=== PATIENT | female | born 1955 | race African-American/Black ===

== ENCOUNTER → 2016-02-22 | Outpatient (CLI) | payer MEDICAID | LOC: RAD 11:46 | PROVIDERS: ATTEND Internal Medicine Medical Oncology | DX: M25.551 Pain in right hip (principal) ==

== ENCOUNTER → 2016-06-05 | Outpatient (CLI) | payer MEDICAID ==
--- NOTE | 2016-06-05 16:12 | XCELERA REPORT ---
[address] [address] Lower Extremity Venous Evaluation Name: JAI MCKINLEY Age: 61 yrs Gender: Female : 1955 Patient Status: Outpatient Patient Location: Study Date: 06/05/2016 01:05 PM Procedure: Color flow and duplex imaging of the veins of the left lower extremity as well as the right Common Femoral vein. Reason For Study: LEFT CALF PAIN M79.662 Ordering Physician: SHYAM DELUNA Performed By: Hammad Liao Right Sided Venous Evaluation 5.7 x 4.6 cms nn vascular mass, complex in groin. Normal vessel filling wall to wall, compression and augmentation as well as Colour flow down to the infrageniculate veins. Critical Findings Discussed with Ivone at Dr Deluna's office. Interpretation Summary No duplex evidence of DVT or obstruction in the left lower extremity nor in the right Common Femoral vein. Large complex mass in left groin, similar to finding in 2011. : SHYAM DELUNA > Derek Hollins
== END ==
LOC: SP 12:57
PROVIDERS: ATTEND Internal Medicine Medical Oncology
DX: M79.662 Pain in left lower leg (principal)
CPT/HCPCS: 93971

== ENCOUNTER 2016-07-09 20:09 | Emergency (ER) | payer OTHER, MEDICAID ==
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
[2016-07-09] MEDS ORDERED: ACETAMINOPHEN 325 MG TABLET PO ONE (22:42)
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
[2016-07-10 00:23] VITALS: BP 183/98
== END 2016-07-10 00:28 | disposition home or self-care (01) ==
LOC: ER 20:09
DX: R51 Headache (principal); F07.81 Postconcussional syndrome; M46.82 Other specified inflammatory spondylopathies, cervical region; S46.912A Strain of unspecified muscle, fascia and tendon at shoulder and upper arm level, left arm, initial encounter; S46.911A Strain of unspecified muscle, fascia and tendon at shoulder and upper arm level, right arm, initial encounter; R11.0 Nausea; M54.89 Other dorsalgia; V89.2XXA Person injured in unspecified motor-vehicle accident, traffic, initial encounter; I10 Essential (primary) hypertension; Z90.710 Acquired absence of both cervix and uterus; Z96.642 Presence of left artificial hip joint
CPT/HCPCS: 70450; 72125; 99284

== ENCOUNTER → 2017-01-23 | Outpatient (CLI) | payer MEDICAID ==
--- NOTE | 2017-01-24 14:19 | WOMENS IMAGING REPORT ---
EXAM DESCRIPTION: BILAT SCREENING MAMMO W/CAD COMPLETED DATE/TIME: 01/24/2017 8:29 am REASON FOR STUDY: SCREENING MAMMO Z12.31 ENCNTR SCREEN MAMMOGRAM FOR MALIGNANT NEOPLASM OF RIDDHI COMPARISON: 2011 to 2015 TECHNIQUE: Standard craniocaudal and mediolateral oblique views of each breast recorded using digita l acquisition. LIMITATIONS: None. FINDINGS: No masses, calcifications or architectural distortion. No areas of suspicion. Read with the assistance of CAD. .[facility] - R2 Cenova Version 1.3 .[facility] Imaging - R2 Cen[employer] Version 1.3 .[facility] - R2 Cenova Version 2.4 .[facility] [place] - R2 Cenova Version 2.4 .[facility] - R2 Tenn[employer] Player Version 9.2 IMPRESSION: NORMAL MAMMOGRAM. BIRADS 1. BREAST DENSITY: c. The breasts are heterogeneously dense, which may obscure small masses. BIRAD: 1 NEGATIVE RECOMMENDATION: ROUTINE SCREENING COMMENT: The patient has been notified of the results by letter per SA requirements. Additional no tification policies are in place for contacting patient with suspicious or incomplete findings. Quality ID #225: The [employer] recommends an annual screening mammogram for women aged 40 years or over. This facility utilizes a reminder system to ensure that all patients receive reminder letters, and/or direct phone calls for appointments. This includes reminders for routine scr eening mammograms, diagnostic mammograms, or other Breast Imaging Interventions when appropriate. Th is patient will be placed in the appropriate reminder system. The [employer] (ACR) has developed recommendations for screening MRI of the breast s in certain patient populations, to be used in conjunction with mammography. Breast MRI surveillanc e may be appropriate for women with more than 20% lifetime risk of developing breast cancer as deter mined by genetic testing, significant family history of the disease, or history of mantle radiation f or Hodgkins Disease. ACR Practice Guidelines 2008. TECHNICAL DOCUMENTATION: FINDING NUMBER: (1) ASSESSMENT: (1) JOB ID: [id number] [employer]- All Rights Reserved
== END ==
LOC: WI 14:56
PROVIDERS: ATTEND Internal Medicine
DX: Z12.31 Encounter for screening mammogram for malignant neoplasm of breast (principal)
CPT/HCPCS: 77067; G0202

== ENCOUNTER 2018-01-07 16:34 | Inpatient (IN) | payer MEDICAID ==
[2018-01-07 17:56] LABS: APPEARANCE,URINE CLEAR; BILIRUBIN,URINE NEGATIVE (NEGATIVE); COLOR,URINE STRAW; GLUCOSE, URINE NEGATIVE (NEGATIVE); KETONES,URINE NEGATIVE (NEGATIVE); LEUKOCYTE ESTERASE,URINE NEGATIVE (NEGATIVE); NITRITE,URINE NEGATIVE (NEGATIVE); PROTEIN,URINE 30 mg/dL (NEGATIVE); URINE SPECIFIC GRAVITY 1.006; UROBILINOGEN,URINE NEGATIVE mg/dL (<2.0)
[2018-01-07 17:59] LABS: ALANINE AMINOTRANSFERASE 15 U/L (9-52); ALBUMIN 4.4 g/dL (3.5-5.0); ALKALINE PHOSPHATASE 91 U/L (38-126); ANION GAP 12 (5-19); ASPARTATE AMINO TRANSFERASE 18 U/L (14-36); BILIRUBIN,DIRECT 0.4 mg/dL (0.0-0.4); BILIRUBIN,TOTAL 1.1 mg/dL (0.2-1.3); BLOOD UREA NITROGEN 11 mg/dL (7-20); CALCIUM 9.8 mg/dL (8.4-10.2); CARBON DIOXIDE 30 mmol/L (22-30); CHLORIDE 104 mmol/L (98-107); GLUCOSE 96 mg/dL (75-110); POTASSIUM 4.6 mmol/L (3.6-5.0); SODIUM 145.6 mmol/L (137-145); TOTAL PROTEIN 7.6 g/dL (6.3-8.2)
--- NOTE | 2018-01-07 17:59 | RADIOLOGY REPORT (SQ) ---
EXAM DESCRIPTION: CT HEAD WITHOUT COMPLETED DATE/TIME: 01/07/2018 5:43 pm REASON FOR STUDY: headache, delayed speech COMPARISON: 07/09/2016 TECHNIQUE: Axial images acquired through the brain without intravenous contrast. Images reviewed wi th bone, brain and subdural windows. Additional sagittal and coronal reconstructions were generated. Images stored on PACS. All CT scanners at this facility use dose modulation, iterative reconstruction, and/or weight based d osing when appropriate to reduce radiation dose to as low as reasonably achievable (ALARA). [facility]: Dose Right [facility]: CareDose [facility]: Dose Right [facility]: Teradose 4D [facility]: [employer] RADIATION DOSE: CT Rad equipment meets quality standard of care and radiation dose reduction techniq ues were employed. CTDIvol: 53.2 mGy. DLP: 1044 mGy-cm. mGy. LIMITATIONS: None. FINDINGS: VENTRICLES: Normal size and contour. CEREBRUM: No masses. No hemorrhage. No midline shift. No evidence for acute infarction. Few scatte red areas of low density in the white matter most likely chronic small vessel ischemic changes. CEREBELLUM: No masses. No hemorrhage. No alteration of density. No evidence for acute infarction. EXTRAAXIAL SPACES: No fluid collections. No masses. ORBITS AND GLOBE: No intra- or extraconal masses. Normal contour of globe without masses. CALVARIUM: No fracture. PARANASAL SINUSES: No fluid or mucosal thickening. SOFT TISSUES: No mass or hematoma. OTHER: No other significant finding. IMPRESSION: MILD CHRONIC MICROVASCULAR ISCHEMIA. NO ACUTE IMAGING FINDINGS IN THE BRAIN. EVIDENCE OF ACUTE STROKE: NO. COMMENT: Quality ID # 436: Final reports with documentation of one or more dose reduction techniques (e.g., Automated exposure control, adjustment of the mA and/or kV according to patient size, use of iterative reconstruction technique) TECHNICAL DOCUMENTATION: JOB ID: [id number] [employer]- All Rights Reserved Reading location - IP/workstation name: [email or web address]
[2018-01-07 18:06] LABS: ABSOLUTE BASOPHILS # (AUTO) 0.1 10^3/uL (0.0-0.2); ABSOLUTE EOSINOPHILS # (AUTO) 0.2 10^3/uL (0.0-0.6); ABSOLUTE LYMPHOCYTES (AUTO) 3.7 10^3/uL (0.5-4.7); ABSOLUTE MONOCYTES (AUTO) 1.2 10^3/uL (0.1-1.4); ABSOLUTE NEUT (AUTO) 9.1 10^3/uL (1.7-8.2); BASOPHILS % (AUTO) 0.8 % (0-2); EOSINOPHILS % (AUTO) 1.3 % (0-6); HEMATOCRIT 36.2 % (36.0-47.0); HEMOGLOBIN 12.1 g/dL (12.0-15.5); LYMPHOCYTES % (AUTO) 26.1 % (13-45); MEAN CORPUSCULAR HEMOGLOBIN 25.6 pg (27.0-33.4); MEAN CORPUSCULAR HGB CONC 33.6 g/dL (32.0-36.0); MEAN CORPUSCULAR VOLUME 76 fl (80-97); MONOCYTES % (AUTO) 8.5 % (3-13); PLATELET COUNT 482 10^3/uL (150-450); RED BLOOD COUNT 4.74 10^6/uL (3.72-5.28); RED CELL DISTRIBUTION WIDTH 19.3 % (11.5-14.0); SEGMENTED NEUTROPHILS % (AUTO) 63.3 % (42-78); TOTAL CELLS COUNTED % (AUTO) 100 %; WHITE BLOOD COUNT 14.3 10^3/uL (4.0-10.5)
[2018-01-07 18:26] LABS: ANISOCYTOSIS 2+; OVALOCYTES SLIGHT; PLATELET COMMENT INCREASED; POIKILOCYTOSIS 1+; POLYCHROMASIA SLIGHT; SCHISTOCYTES SLIGHT; TARGET CELLS 1+; TEAR DROP CELLS SLIGHT
[2018-01-07 18:44] LABS: PLATELET LARGE PRESENT
--- NOTE | 2018-01-07 19:04 | EKG REPORT ---
SEVERITY:- ABNORMAL ECG - SINUS RHYTHM LEFT VENTRICULAR HYPERTROPHY CONSIDER ANTERIOR INFARCT BORDERLINE T ABNORMALITIES, INFERIOR LEADS : Confirmed by: Jorge Thomas MD 07-Jan-2018 19:03:44
--- NOTE | 2018-01-07 19:17 | ER Document Report ---
ED General - General Chief Complaint: Headache Stated Complaint: POSSIBLE SEIZURE Time Seen by Provider: 01/07/18 18:03 Mode of Arrival: Ambulatory Information source: Patient TRAVEL OUTSIDE OF THE [place] IN LAST 30 DAYS: No - HPI Patient complains to provider of: dysarthria Onset: Other - Is a 62-year-old female with a history of sickle cell disease as well as hypertension and diabetes who has been off of medications for the last 5 days, presented for 3 days of difficulty with word finding and headache. Today the symptoms have persisted which prompted her to seek care. She notes that she decided not to take her blood pressure medications because she had run out on Friday then her symptoms started on Friday. She had been in her usual state of health until then. She never had problems like this in the past, never any heart attacks in the past. Never had any strokes that she knows of. Denies any focal numbness or weakness. - Related Data Allergies/Adverse Reactions: meperidine HCl [From Demerol] Allergy (Intermediate, Verified 01/07/18 16:50) facial swelling, throat swelling iodine [Iodine] Allergy (Verified 01/07/18 16:50) RASH Past Medical History - General Information source: Patient, Relative - Social History Smoking Status: Never Smoker Frequency of alcohol use: None Drug Abuse: None Family History: Reviewed & Not Pertinent Patient has suicidal ideation: No Patient has homicidal ideation: No - Past Medical History Cardiac Medical History: Reports: Hx Hypertension Denies: Hx Heart Attack Pulmonary Medical History: Denies: Hx Asthma Neurological Medical History: Denies: Hx Cerebrovascular Accident, Hx Seizures Renal/ Medical History: Denies: Hx Peritoneal Dialysis GI Medical History: Reports: Hx Gastroesophageal Reflux Disease. Denies: Hx Hepatitis, Hx Hiatal Hernia, Hx Ulcer Infectious Medical History: Denies: Hx Hepatitis Past Surgical History: Reports: Hx Appendectomy, Hx Cholecystectomy, Hx Hysterectomy, Hx Orthopedic Surgery - left hip replacement. Denies: Hx Mastectomy, Hx Open Heart Surgery, Hx Pacemaker - Immunizations Hx Diphtheria, Pertussis, Tetanus Vaccination: No Hx Pneumococcal Vaccination: 02/10/07 Review of Systems - Review of Systems -: Yes All other systems reviewed and negative Physical Exam - Vital signs Vitals: Resp BP Pulse Ox 12 206/106 H 96 01/07/18 16:45 01/07/18 16:45 01/07/18 16:45 - General General appearance: Appears well In distress: Mild - HEENT Head: Normocephalic Eyes: Normal Conjunctiva: Normal Pupils: PERRL - Respiratory Respiratory status: No respiratory distress Chest status: Nontender Breath sounds: Normal Chest palpation: Normal - Cardiovascular Rhythm: Regular Heart sounds: Normal auscultation Murmur: No - Abdominal Inspection: Normal Distension: No distension Bowel sounds: Normal Tenderness: Nontender Organomegaly: No organomegaly - Back Back: Normal, Nontender - Extremities General upper extremity: Normal inspection, Nontender, Normal color, Normal ROM , Normal temperature General lower extremity: Normal inspection, Nontender, Normal color, Normal ROM , Normal temperature, Normal weight bearing. No: Celina's sign - Neurological Neuro grossly intact: Yes Cognition: Normal Orientation: AAOx4 [place] Coma Scale Eye Opening: Spontaneous [place] Coma Scale Verbal: Oriented Amy Coma Scale Motor: Obeys Commands [place] Coma Scale Total: 15 Speech: Dysarthria, Expressive aphasia Cranial nerves: Normal Cerebellar coordination: Normal Motor strength normal: LUE, RUE, LLE, RLE Additional motor exam normals: Equal well puller - Psychological Associated symptoms: Normal affect Course - Re-evaluation Re-evalutation: 01/07/18 21:14 This 62-year-old female presented for evaluation of difficulty with word finding as well as slurring of her words. She had been untreated for several days for hypertension and sickle cell. She has multiple risk factors for CVA, she has had 3 days of symptoms however so is likely a poor candidate for lytic therapy will defer administration of lytics to further workup at this time will obtain CT troponin EKG broad labs. She was given 0.2 mcg of clonidine prior to arrival and her blood pressure is subsequently decreased substantially from the 220 range to the 140 systolic. Her NIH stroke scale is a 1, she has slight difficulty with word finding and complex repetitive speech. Her other symptoms are normal, she has great motor strength in all extremities. Is able to reproduce complex movements. We will plan for an MRI of the brain, will continue to monitor in emergency department. Believe she likely has suffered an ischemic stroke will defer further demonstration of other medications. Spoke to Dr. Larson who is this patient's primary physician he agrees to admit this patient for ongoing monitoring in the IMCU. MRI does confirm that she has had a an acute infarct in the left MCA territory. - Vital Signs Vital signs: Temp Pulse Resp BP Pulse Ox 98.6 F 49 L 11 L 129/80 H 97 01/07/18 16:46 01/07/18 18:30 01/07/18 19:21 01/07/18 19:21 01/07/18 19:21 - Laboratory Result Diagrams: 01/07/18 16:40 01/07/18 16:40 Laboratory results interpreted by me: 01/07/18 01/07/18 01/07/18 16:40 16:40 16:40 WBC 14.3 H MCV 76 L MCH 25.6 L RDW 19.3 H Plt Count 482 H Absolute Neutrophils 9.1 H Sodium 145.6 H Urine Protein 30 H Discharge - Discharge Clinical Impression: Sickle cell trait CVA (cerebral vascular accident) Qualifiers: CVA mechanism: unspecified Qualified Code(s): I63.9 - Cerebral infarction, unspecified Hypertension Qualifiers: Hypertension type: unspecified Qualified Code(s): I10 - Essential (primary) hypertension Condition: Stable Disposition: ADMITTED INPATIENT [facility] Ad[facility]: [facility]
--- NOTE | 2018-01-07 20:54 | RADIOLOGY REPORT (SQ) ---
EXAM DESCRIPTION: MRI HEAD WITHOUT COMPLETED DATE/TIME: 01/07/2018 8:36 pm REASON FOR STUDY: stroke COMPARISON: 05/26/2008 TECHNIQUE: Multiplanar imaging includes non-contrasted T1, T2, FLAIR, and diffusion with ADC map seq uences. Images stored on PACS. LIMITATIONS: None. FINDINGS: ANATOMY: No anomalies. Normal vascular flow voids. Pituitary fossa normal. CSF SPACES: Normal in size and contour. No hemorrhage. CEREBRUM: Sulci and gyri normal in size and contour. There is increased FLAIR and T2 signal in the p eriventricular white matter. No hemorrhage. No mass. POSTERIOR FOSSA: No signal alteration. No hemorrhage. No edema, masses or mass effect. Internal sho tory canals, cerebello-pontine angles, mastoids normal. DIFFUSION IMAGING: Abnormal diffusion is seen in the left posterior parietal cortex. ORBITS: No masses. Globes normal. PARANASAL SINUSES: No fluid levels. Mucosa normal. OTHER: No other significant finding. IMPRESSION: There is the appearance of acute infarction involving the left posterior parietal lobe. EVIDENCE OF ACUTE STROKE: Yes LEFT MCA TECHNICAL DOCUMENTATION: JOB ID: [id number]- All Rights Reserved Reading location - IP/workstation name: [email or web address]
[2018-01-07] MEDS: ENOXAPARIN SODIUM INJ 40 MG/0.4 ML DISP.SYRIN SUBCUT SCH (22:04)
[2018-01-07] MEDS: FOLIC ACID 1 MG TABLET PO SCH (23:06)
[2018-01-07] MEDS: ENALAPRIL MALEATE 5 MG TABLET PO SCH (23:06)
[2018-01-07] MEDS: METOPROLOL SUCCINATE 50 MG TAB.SR.24H PO SCH (23:07)
[2018-01-07] MEDS: ASPIRIN/DIPYRIDAMOLE 25-200 MG 1 CAP.SR CPMP.12HR PO SCH (23:07)
[2018-01-08 01:12] LABS: CREATINE KINASE MB 0.39 ng/mL (<4.55)
[2018-01-08 01:19] LABS: TROPONIN I < 0.012 ng/mL
[2018-01-08] MEDS: LANSOPRAZOLE 15 MG TAB.RAP.DR PO SCH (06:28)
[2018-01-08 07:07] LABS: CHOLESTEROL 166.37 mg/dL (0-200); TRIGLYCERIDES 114 mg/dL (<150)
[2018-01-08 07:17] LABS: DIRECT LDL 112 mg/dL (<100)
[2018-01-08 07:21] LABS: CREATINE KINASE MB 0.31 ng/mL (<4.55)
[2018-01-08 07:24] LABS: CREATINE KINASE < 20 U/L (30-135)
[2018-01-08 07:26] LABS: TROPONIN I < 0.012 ng/mL
--- NOTE | 2018-01-08 07:44 | EKG REPORT ---
SEVERITY:- ABNORMAL ECG - SINUS BRADYCARDIA BORDERLINE LEFT AXIS DEVIATION ABNORMAL T, CONSIDER ISCHEMIA, INFERIOR LEADS : Confirmed by: Jorge Thomas MD 08-Jan-2018 07:43:33
[2018-01-08] MEDS ORDERED: ATORVASTATIN CALCIUM 80 MG TABLET PO ONE (09:30)
[2018-01-08] MEDS: ASPIRIN/DIPYRIDAMOLE 25-200 MG 1 CAP.SR CPMP.12HR PO SCH ×2 (09:42→21:46)
[2018-01-08] MEDS: FOLIC ACID 1 MG TABLET PO SCH (09:44)
[2018-01-08] MEDS: ENOXAPARIN SODIUM INJ 40 MG/0.4 ML DISP.SYRIN SUBCUT SCH (09:50)
[2018-01-08] MEDS: METOPROLOL SUCCINATE 50 MG TAB.SR.24H PO SCH ×2 (09:52→22:30)
[2018-01-08] MEDS: ENALAPRIL MALEATE 5 MG TABLET PO SCH ×2 (09:52→22:30)
--- NOTE | 2018-01-08 12:18 | RADIOLOGY REPORT (SQ) ---
EXAM DESCRIPTION: CAROTID DOPPLER COMPLETED DATE/TIME: 01/08/2018 11:58 am REASON FOR STUDY: CVA COMPARISON: None. TECHNIQUE: Grayscale ultrasound, Doppler velocity and spectra, and color Doppler images acquired of the extra-cranial carotid and vertebral arteries. Images stored on PACS. LIMITATIONS: None. FINDINGS: RIGHT CAROTID CCA Velocities: Within normal limits. ICA Velocities Peak systolic 1.09 m/s. End diastolic 0.33 m/s. Proximal ICA/CCA peak systolic ratio 1.2. Spectra normal. No significant plaque. LEFT CAROTID CCA Velocities: Within normal limits. ICA Velocities Peak systolic 0.89 m/s. End diastolic 0.28 m/s. Proximal ICA/CCA peak systolic ratio 1.1. Spectra normal. No significant plaque. VERTEBRAL ARTERIES: Antegrade flow. Normal waveforms. SUBCLAVIAN ARTERIES: No finding. OTHER: No other significant finding. IMPRESSION: NO HEMODYNAMICALLY SIGNIFICANT STENOSIS. COMMENT: Quality ID #[id number]: Velocity criteria are extrapolated from the diameter data as defined by t he Society of Radiologists in Ultrasound Consensus Conference. Radiology 2003: 229; 340-346. TECHNICAL DOCUMENTATION: JOB ID: [id number] [employer]- All Rights Reserved Reading location - IP/workstation name: [email or web address]
[2018-01-08 13:22] LABS: CREATINE KINASE MB < 0.22 ng/mL (<4.55); TROPONIN I < 0.012 ng/mL
--- NOTE | 2018-01-08 21:02 | PDOC H&P ---
History of Present Illness Admission Date/PCP: 01/07/18 19:53 ZULY MORALEZ MD History of Present Illness: JAI MCKINLEY is a 62 year old female,she has a history of sickle cell disease, hypertension, type 2 diabetes mellitus, she came to emergency room for evaluation of a 3-day history of dysphagia, in the emergency room CT head was done, it was negative for any acute pathology. Patient was obviously dysphasic does suspect a stroke. MRI head was done without contrast, it demonstrated abnormal diffusion on the diffusion imaging in the left posterior parietal cortex. This is consistent with left MCA territory stroke Past Medical History Cardiac Medical History: Reports: Hypertension Neurological Medical History: Denies: Seizures Endocrine Medical History: Reports: Diabetes Mellitus Type 2 GI Medical History: Reports: Gastroesophageal Reflux Disease Hematology: Reports: Anemia, Sickle Cell Disease Past Surgical History Past Surgical History: Reports: Appendectomy, Cholecystectomy, Hysterectomy, Orthopedic Surgery - left hip replacement Social History Smoking Status: Former Smoker Last Time Smoked: 2007 Frequency of Alcohol Use: None Hx Recreational Drug Use: No Drugs: None Hx Prescription Drug Abuse: No Family History Family History: Reviewed & Not Pertinent Parental Family History Reviewed: Yes Children Family History Reviewed: Yes Sibling(s) Family History Reviewed.: Yes Medication/Allergy Home Medications: Celecoxib [Celebrex 200 mg Capsule] 200 mg PO DAILY 11/10/11 Folic Acid 1 mg PO DAILY 11/10/11 Oxycodone HCl/Acetaminophen [Percocet 10-325 mg Tablet] 1 each PO Q4HP PRN 11/09 Metoprolol Succinate [Toprol Xl] 50 mg PO Q12 09/21/14 Vitamin D 3 1,000 tab PO DAILY 09/21/14 Ascorbic Acid [Vitamin C 500 mg Tablet] 500 mg PO DAILY 01/07/18 Enalapril Maleate [Vasotec] 5 mg PO Q12 01/07/18 Fentanyl [Duragesic 75 Mcg/Hr Transdermal Patch] 1 patch TOP Q3D 01/07/18 Omeprazole 20 mg PO DAILY 01/07/18 Allergies/Adverse Reactions: meperidine HCl [From Demerol] Allergy (Intermediate, Verified 01/07/18 16:50) facial swelling, throat swelling iodine [Iodine] Allergy (Verified 01/07/18 16:50) RASH Review of Systems Constitutional: ABSENT: chills, fever(s), headache(s), weight gain, weight loss Eyes: ABSENT: visual disturbances Ears: ABSENT: hearing changes Cardiovascular: ABSENT: chest pain, dyspnea on exertion, edema, orthropnea, palpitations Respiratory: ABSENT: cough, hemoptysis Gastrointestinal: ABSENT: abdominal pain, constipation, diarrhea, hematemesis, hematochezia, nausea, vomiting Genitourinary: ABSENT: dysuria, hematuria Musculoskeletal: ABSENT: joint swelling Integumentary: ABSENT: rash, wounds Neurological: PRESENT: other - abnormal speech Psychiatric: ABSENT: anxiety, depression, homidical ideation, suicidal ideation Endocrine: ABSENT: cold intolerance, heat intolerance, menstrual abnormalities, polydipsia, polyuria Hematologic/Lymphatic: ABSENT: easy bleeding, easy bruising, lymphadenopathy Physical Exam Vital Signs: Temp Pulse Resp BP Pulse Ox 98.8 F 63 18 121/66 98 01/08/18 15:19 01/08/18 19:00 01/08/18 16:00 01/08/18 16:00 01/08/18 16:00 Intake & Output 01/07/18 01/08/18 01/09/18 06:59 06:59 06:59 Intake Total 874 Balance 874 Weight 89.1 kg 89.1 kg General appearance: PRESENT: no acute distress, well-developed, well-nourished Head exam: PRESENT: atraumatic, normocephalic Eye exam: PRESENT: conjunctiva pink, EOMI, PERRLA Ear exam: PRESENT: normal external ear exam Mouth exam: PRESENT: moist, tongue midline Neck exam: PRESENT: full ROM Respiratory exam: PRESENT: clear to auscultation tien Cardiovascular exam: PRESENT: RRR, +S1, +S2 Vascular exam: PRESENT: normal capillary refill GI/Abdominal exam: PRESENT: normal bowel sounds, soft Rectal exam: PRESENT: deferred Neurological exam: PRESENT: alert, other - dysphasia Psychiatric exam: PRESENT: appropriate affect, normal mood Skin exam: PRESENT: dry, intact, warm Results Laboratory Results: 01/08/18 05:57 Triglycerides 114 Cholesterol 166.37 LDL Cholesterol Direct 112 H VLDL Cholesterol 23.0 HDL Cholesterol 36 L 01/08/18 01/08/18 01/08/18 00:32 00:32 05:57 Creatine Kinase 28 L < 20 L CK-MB (CK-2) 0.39 Troponin I < 0.012 01/08/18 01/08/18 01/08/18 05:57 12:22 12:22 Creatine Kinase 26 L CK-MB (CK-2) 0.31 < 0.22 Troponin I < 0.012 < 0.012 Impressions: Head CT 01/07/18 00:00 IMPRESSION: MILD CHRONIC MICROVASCULAR ISCHEMIA. NO ACUTE IMAGING FINDINGS IN THE BRAIN. EVIDENCE OF ACUTE STROKE: NO. Head MRI 01/07/18 19:39 IMPRESSION: There is the appearance of acute infarction involving the left posterior parietal lobe. EVIDENCE OF ACUTE STROKE: Yes LEFT MCA Carotid Doppler Study 01/08/18 00:00 IMPRESSION: NO HEMODYNAMICALLY SIGNIFICANT STENOSIS. Assessment & Plan - Diagnosis (1) Left acute arterial ischemic stroke, MCA (middle cerebral artery) Is this a current diagnosis for this admission?: Yes Plan: Patient is admitted for management according to the stroke protocol (2) Hypertension Qualifiers: Hypertension type: essential hypertension Qualified Code(s): I10 - Essential (primary) hypertension Is this a current diagnosis for this admission?: Yes (3) Sickle cell disease Qualifiers: Sickle-cell associated disorders: without crisis Qualified Code(s): D57.1 - Sickle-cell disease without crisis Is this a current diagnosis for this admission?: Yes
--- NOTE | 2018-01-08 21:05 | PDOC PROGRESS REPORT ---
Subjective Progress Note for:: 01/08/18 Subjective:: Patient seen by the bedside she complain of pain in the right shoulder, she was admitted yesterday because of CVA Reason For Visit: ISCHEMIC STROKE Physical Exam Vital Signs: Temp Pulse Resp BP Pulse Ox 99.0 F 58 L 16 118/62 99 01/08/18 20:35 01/08/18 20:35 01/08/18 20:35 01/08/18 20:35 01/08/18 20:35 Intake & Output 01/07/18 01/08/18 01/09/18 06:59 06:59 06:59 Intake Total 874 Balance 874 Weight 89.1 kg 89.1 kg General appearance: PRESENT: no acute distress Eye exam: PRESENT: PERRLA Respiratory exam: PRESENT: clear to auscultation tien Cardiovascular exam: PRESENT: +S1, +S2 GI/Abdominal exam: PRESENT: soft Neurological exam: PRESENT: alert Results Laboratory Results: 01/08/18 05:57 Triglycerides 114 Cholesterol 166.37 LDL Cholesterol Direct 112 H VLDL Cholesterol 23.0 HDL Cholesterol 36 L 01/08/18 01/08/18 01/08/18 00:32 00:32 05:57 Creatine Kinase 28 L < 20 L CK-MB (CK-2) 0.39 Troponin I < 0.012 01/08/18 01/08/18 01/08/18 05:57 12:22 12:22 Creatine Kinase 26 L CK-MB (CK-2) 0.31 < 0.22 Troponin I < 0.012 < 0.012 Impressions: Head CT 01/07/18 00:00 IMPRESSION: MILD CHRONIC MICROVASCULAR ISCHEMIA. NO ACUTE IMAGING FINDINGS IN THE BRAIN. EVIDENCE OF ACUTE STROKE: NO. Head MRI 01/07/18 19:39 IMPRESSION: There is the appearance of acute infarction involving the left posterior parietal lobe. EVIDENCE OF ACUTE STROKE: Yes LEFT MCA Carotid Doppler Study 01/08/18 00:00 IMPRESSION: NO HEMODYNAMICALLY SIGNIFICANT STENOSIS. Assessment & Plan - Diagnosis (1) Left acute arterial ischemic stroke, MCA (middle cerebral artery) Is this a current diagnosis for this admission?: Yes Plan: Continue management, atorvastatin, Aggrenox (2) Hypertension Qualifiers: Hypertension type: essential hypertension Qualified Code(s): I10 - Essential (primary) hypertension Is this a current diagnosis for this admission?: Yes (3) Sickle cell disease Qualifiers: Sickle-cell associated disorders: without crisis Qualified Code(s): D57.1 - Sickle-cell disease without crisis Is this a current diagnosis for this admission?: Yes
[2018-01-09] MEDS: LANSOPRAZOLE 15 MG TAB.RAP.DR PO SCH (06:41)
[2018-01-09] MEDS: FOLIC ACID 1 MG TABLET PO SCH (09:46)
[2018-01-09] MEDS: ASCORBIC ACID 500 MG TABLET PO SCH (09:46)
[2018-01-09] MEDS: ASPIRIN/DIPYRIDAMOLE 25-200 MG 1 CAP.SR CPMP.12HR PO SCH (09:46)
[2018-01-09] MEDS: METOPROLOL SUCCINATE 50 MG TAB.SR.24H PO SCH ×2 (09:52→21:27)
[2018-01-09] MEDS: ENALAPRIL MALEATE 5 MG TABLET PO SCH ×2 (09:53→21:26)
[2018-01-09 09:54] LABS: HEMATOCRIT 33.1 % (36.0-47.0); HEMOGLOBIN 11.5 g/dL (12.0-15.5); MEAN CORPUSCULAR HEMOGLOBIN 26.3 pg (27.0-33.4); MEAN CORPUSCULAR HGB CONC 34.7 g/dL (32.0-36.0); MEAN CORPUSCULAR VOLUME 76 fl (80-97); PLATELET COUNT 444 10^3/uL (150-450); RED BLOOD COUNT 4.37 10^6/uL (3.72-5.28); RED CELL DISTRIBUTION WIDTH 18.6 % (11.5-14.0); WHITE BLOOD COUNT 14.7 10^3/uL (4.0-10.5)
[2018-01-09] MEDS: ENOXAPARIN SODIUM INJ 40 MG/0.4 ML DISP.SYRIN SUBCUT SCH (09:54)
[2018-01-09 10:17] LABS: ALANINE AMINOTRANSFERASE 9 U/L (9-52); ALBUMIN 3.7 g/dL (3.5-5.0); ALKALINE PHOSPHATASE 68 U/L (38-126); ANION GAP 12 (5-19); ASPARTATE AMINO TRANSFERASE 15 U/L (14-36); BILIRUBIN,DIRECT 0.3 mg/dL (0.0-0.4); BLOOD UREA NITROGEN 16 mg/dL (7-20); CALCIUM 9.5 mg/dL (8.4-10.2); CARBON DIOXIDE 27 mmol/L (22-30); CHLORIDE 105 mmol/L (98-107); GLUCOSE 132 mg/dL (75-110); POTASSIUM 4.5 mmol/L (3.6-5.0); SODIUM 143.6 mmol/L (137-145); TOTAL PROTEIN 6.3 g/dL (6.3-8.2)
[2018-01-09 11:04] LABS: ABSOLUTE LYMPHOCYTES# (MANUAL) 2.5 10^3/uL (0.5-4.7); ABSOLUTE MONOCYTES # (MANUAL) 0.9 10^3/uL (0.1-1.4); BASOPHILS % (MANUAL) 0 % (0-2); EOSINOPHILS % (MANUAL) 2 % (0-6); LYMPHOCYTES % (MANUAL) 17 % (13-45); MONOCYTES % (MANUAL) 6 % (3-13); NUCLEATED RED BLOOD CELLS 2 /100 WBC (0); SEGMENTED NEUTROPHILS % (MAN) 75 % (42-78); TOTAL CELLS COUNTED 100
[2018-01-09 11:05] LABS: TARGET CELLS 3+; TOXIC GRANULATION 1+; TOXIC VACUOLATION PRESENT
[2018-01-09 11:06] LABS: ANISOCYTOSIS 2+; HYPOCHROMASIA 1+; PLATELET CLUMPS PRESENT; PLATELET COMMENT ADEQUATE; PLATELET GIANT PRESENT; PLATELET LARGE PRESENT; POIKILOCYTOSIS 2+; POLYCHROMASIA 2+; SICKLE RED CELLS SLIGHT
[2018-01-09 11:07] LABS: OVALOCYTES 1+; SCHISTOCYTES SLIGHT; TEAR DROP CELLS SLIGHT
--- NOTE | 2018-01-09 13:57 | XCELERA REPORT ---
[address] [address] Transthoracic Echocardiogram Report Name: JAI MCKINLEY Age: 62 yrs Gender: Female : 1955 Patient Status: Inpatient Patient Location: [place] [address]^A Study Date: 01/07/2018 08:45 PM Height: 63 in Weight: 197 lb BSA: 1.9 m2 Procedure: A two-dimensional transthoracic echocardiogram with color flow and Doppler was performed. Study Quality: Poor. Reason For Study: CVA History: CVA. Ordering Physician: ZULY MORALEZ Performed By: Paz Akins Interpretation Summary There is no obvious cardiac source of embolus noted on this transthoracic echocardiogram. Follow-up with a POLI is suggested if cardiac source is still suspected. The left ventricle is normal in size. There is normal left ventricular wall thickness. LV EF is 60% Left ventricular systolic function is normal. Doppler measurements suggest normal left ventricular diastolic function The left ventricular wall motion is normal. There is no thrombus. The right ventricle is grossly normal size. The right ventricle is not well visualized secondary to technical limitations The left atrial size is normal. There is no evidence of mitral valve prolapse. There is no vegetation seen on the mitral valve. There is no mitral valve stenosis. There is no mitral regurgitation noted. There is no aortic valve stenosis There is no LVOT obstruction. No aortic regurgitation is present. There is no tricuspid stenosis. There is a trace to mild amount of tricuspid regurgitation There is mild pulmonary hypertension by echo RVSP is 35 to 40 mm of Hg , with RA mean of 5 to 10. There is no pulmonic valvular stenosis. There is a trace amount of pulmonic regurgitation The aortic root is not well visualized but is probably normal size. The inferior vena cava appeared normal and decreased > 50% with respiration (RAP 5-10 mmHg) There is no pericardial effusion. There is no obvious cardiac source of embolus noted on this transthoracic echocardiogram. Follow-up with a POLI is suggested if cardiac source is still suspected MMode/2D Measurements & Calculations RVDd: 2.4 cm LVIDd: 5.7 cm FS: 34.2 % Ao root diam: 2.6 cm IVSd: 0.93 cm LVIDs: 3.8 cm EDV(Teich): 160.5 ml Ao root area: 5.3 cm2 LVPWd: 0.88 cm ESV(Teich): 60.3 ml LA dimension: 3.7 cm EF(Teich): 62.4 % Doppler Measurements & Calculations MV E max lalo: MV P1/2t max lalo: Ao V2 max: LV V1 max P.0 cm/sec 99.9 cm/sec 148.3 cm/sec 4.1 mmHg MV A max lalo: MV P1/2t: 58.8 msec Ao max PG: LV V1 max: 67.6 cm/sec MVA(P1/2t): 3.7 cm2 8.8 mmHg 101.2 cm/sec MV E/A: 1.2 MV dec slope: 497.8 cm/sec2 MV dec time: 0.20 sec PA V2 max: PI end-d lalo: TR max lalo: MV P1/2t-pr_phl: 105.9 cm/sec 114.0 cm/sec 271.5 cm/sec 58.8 msec PA max PG: TR max P.5 mmHg 29.5 mmHg Left Ventricle The left ventricle is normal in size. There is normal left ventricular wall thickness. LV EF is 60%. Left ventricular systolic function is normal. Doppler measurements suggest normal left ventricular diastolic function. The left ventricular wall motion is normal. There is no thrombus. Right Ventricle The right ventricle is grossly normal size. The right ventricle is not well visualized secondary to technical limitations. Atria Right atrium not well visualized secondary to technical limitations. The left atrial size is normal. Mitral Valve There is no evidence of mitral valve prolapse. There is no vegetation seen on the mitral valve. There is no mitral valve stenosis. There is no mitral regurgitation noted. Aortic Valve There is no aortic valve stenosis. There is no LVOT obstruction. No aortic regurgitation is present. Tricuspid Valve There is no tricuspid stenosis. There is a trace to mild amount of tricuspid regurgitation. There is mild pulmonary hypertension by echo. RVSP is 35 to 40 mm of Hg , with RA mean of 5 to 10. Pulmonic Valve There is no pulmonic valvular stenosis. There is a trace amount of pulmonic regurgitation. Great Vessels The aortic root is not well visualized but is probably normal size. The inferior vena cava appeared normal and decreased > 50% with respiration (RAP 5-10 mmHg). Effusions There is no pericardial effusion. : ZULY MORALEZ > Alexa Blackwood
[2018-01-09] MEDS ORDERED: ACETAMINOPHEN 325 MG TABLET PO PRN (16:05)
[2018-01-09] MEDS ORDERED: (PENDING PHARMACY ID) (Oxycodone Hcl/Acetaminophen [Percocet 10-325 Mg Tablet] 1 EACH) PO PRN (16:09)
--- NOTE | 2018-01-09 16:09 | PDOC PROGRESS REPORT ---
Subjective Progress Note for:: 01/09/18 Subjective:: She was seen by the bedside, complaining of right sided throbbing headache, she is on Aggrenox antiplatelet therapy for this CVA, this is probably the etiology of the headache, the Aggrenox will be discontinue she will be started on Plavix and aspirin. The speech is better today. Reason For Visit: ISCHEMIC STROKE Physical Exam Vital Signs: Temp Pulse Resp BP Pulse Ox 99.4 F 91 18 157/99 H 97 01/09/18 15:51 01/09/18 15:51 01/09/18 15:51 01/09/18 15:51 01/09/18 15:51 Intake & Output 01/08/18 01/09/18 01/10/18 06:59 06:59 06:59 Intake Total 1111 237 Output Total 0 Balance 1111 237 Weight 89.1 kg 89.6 kg General appearance: PRESENT: no acute distress Head exam: PRESENT: atraumatic, normocephalic Neck exam: PRESENT: full ROM Respiratory exam: PRESENT: clear to auscultation tien Cardiovascular exam: PRESENT: RRR, +S1, +S2 Vascular exam: PRESENT: normal capillary refill GI/Abdominal exam: PRESENT: normal bowel sounds, soft Rectal exam: PRESENT: deferred Neurological exam: PRESENT: alert, CN II-XII grossly intact Skin exam: PRESENT: dry, intact, warm. ABSENT: cyanosis, rash Results Laboratory Results: 01/09/18 09:35 01/09/18 09:35 01/09/18 01/09/18 09:35 09:35 WBC 14.7 H RBC 4.37 Hgb 11.5 L Hct 33.1 L MCV 76 L MCH 26.3 L MCHC 34.7 RDW 18.6 H Plt Count 444 Seg Neutrophils % Not Reportable Lymphocytes % Not Reportable Monocytes % Not Reportable Eosinophils % Not Reportable Basophils % Not Reportable Absolute Neutrophils Not Reportable Absolute Lymphocytes Not Reportable Absolute Monocytes Not Reportable Absolute Eosinophils Not Reportable Absolute Basophils Not Reportable Sodium 143.6 Potassium 4.5 Chloride 105 Carbon Dioxide 27 Anion Gap 12 BUN 16 Creatinine 0.81 Est GFR ( Amer) > 60 Est GFR (Non-Af Amer) > 60 Glucose 132 H Calcium 9.5 Total Bilirubin 1.0 AST 15 ALT 9 Alkaline Phosphatase 68 Total Protein 6.3 Albumin 3.7 01/08/18 01/08/18 01/08/18 00:32 00:32 05:57 Creatine Kinase 28 L < 20 L CK-MB (CK-2) 0.39 Troponin I < 0.012 01/08/18 01/08/18 01/08/18 05:57 12:22 12:22 Creatine Kinase 26 L CK-MB (CK-2) 0.31 < 0.22 Troponin I < 0.012 < 0.012 Impressions: Head CT 01/07/18 00:00 IMPRESSION: MILD CHRONIC MICROVASCULAR ISCHEMIA. NO ACUTE IMAGING FINDINGS IN THE BRAIN. EVIDENCE OF ACUTE STROKE: NO. Head MRI 01/07/18 19:39 IMPRESSION: There is the appearance of acute infarction involving the left posterior parietal lobe. EVIDENCE OF ACUTE STROKE: Yes LEFT MCA Carotid Doppler Study 01/08/18 00:00 IMPRESSION: NO HEMODYNAMICALLY SIGNIFICANT STENOSIS. Assessment & Plan - Diagnosis (1) Left acute arterial ischemic stroke, MCA (middle cerebral artery) Is this a current diagnosis for this admission?: Yes Plan: Discontinue Aggrenox, start Plavix and aspirin (2) Hypertension Qualifiers: Hypertension type: essential hypertension Qualified Code(s): I10 - Essential (primary) hypertension Is this a current diagnosis for this admission?: Yes (3) Sickle cell disease Qualifiers: Sickle-cell associated disorders: without crisis Qualified Code(s): D57.1 - Sickle-cell disease without crisis Is this a current diagnosis for this admission?: Yes
[2018-01-09] MEDS ORDERED: OXYCODONE-ACETAMINOPHEN 5-325 MG TABLET PO PRN (16:16)
[2018-01-09] MEDS: ASPIRIN 81 MG TABLET, CHEWABLE PO SCH (16:46)
[2018-01-09] MEDS: CLOPIDOGREL BISULFATE 75 MG TABLET PO SCH (16:46)
[2018-01-09] MEDS: FENTANYL 75 MCG/HR PATCH.TD72 TOP SCH (16:49)
[2018-01-09] MEDS: ATORVASTATIN CALCIUM 80 MG TABLET PO SCH (21:27)
[2018-01-09] MEDS: OXYCODONE HCL IR 5 MG TABLET PO PRN (21:31)
[2018-01-10] MEDS: OXYCODONE HCL IR 5 MG TABLET PO PRN ×4 (02:09→23:05)
[2018-01-10] MEDS: LANSOPRAZOLE 15 MG TAB.RAP.DR PO SCH (05:40)
[2018-01-10] MEDS: ASCORBIC ACID 500 MG TABLET PO SCH (10:33)
[2018-01-10] MEDS: FOLIC ACID 1 MG TABLET PO SCH (10:33)
[2018-01-10] MEDS: ASPIRIN 81 MG TABLET, CHEWABLE PO SCH (10:33)
[2018-01-10] MEDS: METOPROLOL SUCCINATE 50 MG TAB.SR.24H PO SCH ×2 (10:33→22:48)
[2018-01-10] MEDS: ENALAPRIL MALEATE 5 MG TABLET PO SCH ×2 (10:33→22:48)
[2018-01-10] MEDS: CLOPIDOGREL BISULFATE 75 MG TABLET PO SCH (10:33)
[2018-01-10] MEDS: ENOXAPARIN SODIUM INJ 40 MG/0.4 ML DISP.SYRIN SUBCUT SCH (10:39)
--- NOTE | 2018-01-10 18:15 | PDOC PROGRESS REPORT ---
Subjective Progress Note for:: 01/10/18 Subjective:: Patient seen by the bedside, there is slight improvement in her speech hopefully discharge home in the morning Reason For Visit: ISCHEMIC STROKE Physical Exam Vital Signs: Temp Pulse Resp BP Pulse Ox 99.3 F 60 16 123/79 100 01/10/18 12:00 01/10/18 14:00 01/10/18 12:00 01/10/18 12:00 01/10/18 12:00 Intake & Output 01/09/18 01/10/18 01/11/18 06:59 06:59 06:59 Intake Total 1111 637 Output Total 0 Balance 1111 637 Weight 89.6 kg 86.2 kg General appearance: PRESENT: no acute distress Eye exam: PRESENT: PERRLA Respiratory exam: PRESENT: clear to auscultation tien Cardiovascular exam: PRESENT: +S1, +S2 GI/Abdominal exam: PRESENT: soft Neurological exam: PRESENT: alert Results Laboratory Results: 01/09/18 09:35 01/09/18 09:35 01/08/18 01/08/18 01/08/18 00:32 00:32 05:57 Creatine Kinase 28 L < 20 L CK-MB (CK-2) 0.39 Troponin I < 0.012 01/08/18 01/08/18 01/08/18 05:57 12:22 12:22 Creatine Kinase 26 L CK-MB (CK-2) 0.31 < 0.22 Troponin I < 0.012 < 0.012 Impressions: Head CT 01/07/18 00:00 IMPRESSION: MILD CHRONIC MICROVASCULAR ISCHEMIA. NO ACUTE IMAGING FINDINGS IN THE BRAIN. EVIDENCE OF ACUTE STROKE: NO. Head MRI 01/07/18 19:39 IMPRESSION: There is the appearance of acute infarction involving the left posterior parietal lobe. EVIDENCE OF ACUTE STROKE: Yes LEFT MCA Carotid Doppler Study 01/08/18 00:00 IMPRESSION: NO HEMODYNAMICALLY SIGNIFICANT STENOSIS. Assessment & Plan - Diagnosis (1) Left acute arterial ischemic stroke, MCA (middle cerebral artery) Is this a current diagnosis for this admission?: Yes (2) Hypertension Qualifiers: Hypertension type: essential hypertension Qualified Code(s): I10 - Essential (primary) hypertension Is this a current diagnosis for this admission?: Yes (3) Sickle cell disease Qualifiers: Sickle-cell associated disorders: without crisis Qualified Code(s): D57.1 - Sickle-cell disease without crisis Is this a current diagnosis for this admission?: Yes
[2018-01-10] MEDS: ATORVASTATIN CALCIUM 80 MG TABLET PO SCH (22:48)
[2018-01-11] MEDS: LANSOPRAZOLE 15 MG TAB.RAP.DR PO SCH (05:12)
[2018-01-11] MEDS ORDERED: ONDANSETRON HCL INJ/PF 4 MG/2 ML SDV ONE (09:15)
[2018-01-11] MEDS ORDERED: ONDANSETRON HCL INJ/PF 4 MG/2 ML SDV IV PRN (09:22)
[2018-01-11] MEDS ORDERED: LOPERAMIDE HCL 2 MG CAPSULE PO PRN (09:22)
--- NOTE | 2018-01-11 11:50 | PDOC PROGRESS REPORT ---
Subjective Progress Note for:: 01/11/18 Subjective:: Patient was seen by the bedside, she complains of diarrhea, loose stool, vomiting, not able to keep any food down. She was admitted for the management of stroke with predominantly dysphasia, speech is improved over time. Reason For Visit: ISCHEMIC STROKE Physical Exam Vital Signs: Temp Pulse Resp BP Pulse Ox 98.9 F 56 L 16 132/69 H 97 01/11/18 04:00 01/11/18 04:00 01/11/18 04:00 01/11/18 04:00 01/11/18 04:00 Intake & Output 01/10/18 01/11/18 01/12/18 06:59 06:59 06:59 Intake Total 637 767 Output Total 300 Balance 637 467 Weight 86.2 kg 85.7 kg General appearance: PRESENT: no acute distress Eye exam: PRESENT: PERRLA Respiratory exam: PRESENT: clear to auscultation tien Cardiovascular exam: PRESENT: +S1, +S2 GI/Abdominal exam: PRESENT: soft Neurological exam: PRESENT: alert Results Laboratory Results: 01/09/18 09:35 01/09/18 09:35 01/08/18 01/08/18 01/08/18 00:32 00:32 05:57 Creatine Kinase 28 L < 20 L CK-MB (CK-2) 0.39 Troponin I < 0.012 01/08/18 01/08/18 01/08/18 05:57 12:22 12:22 Creatine Kinase 26 L CK-MB (CK-2) 0.31 < 0.22 Troponin I < 0.012 < 0.012 Impressions: Head CT 01/07/18 00:00 IMPRESSION: MILD CHRONIC MICROVASCULAR ISCHEMIA. NO ACUTE IMAGING FINDINGS IN THE BRAIN. EVIDENCE OF ACUTE STROKE: NO. Head MRI 01/07/18 19:39 IMPRESSION: There is the appearance of acute infarction involving the left posterior parietal lobe. EVIDENCE OF ACUTE STROKE: Yes LEFT MCA Carotid Doppler Study 01/08/18 00:00 IMPRESSION: NO HEMODYNAMICALLY SIGNIFICANT STENOSIS. Assessment & Plan - Diagnosis (1) Left acute arterial ischemic stroke, MCA (middle cerebral artery) Is this a current diagnosis for this admission?: Yes (2) Hypertension Qualifiers: Hypertension type: essential hypertension Qualified Code(s): I10 - Essential (primary) hypertension Is this a current diagnosis for this admission?: Yes (3) Sickle cell disease Qualifiers: Sickle-cell associated disorders: without crisis Qualified Code(s): D57.1 - Sickle-cell disease without crisis Is this a current diagnosis for this admission?: Yes (4) Gastroenteritis Is this a current diagnosis for this admission?: Yes Plan: , This is probably viral gastroenteritis, stool for C. difficile toxin, start IV fluid
[2018-01-11] MEDS: NORMAL SALINE 1000 ML 1,000 ML IV PRN (14:30)
[2018-01-11] MEDS: OXYCODONE HCL IR 5 MG TABLET PO PRN ×2 (14:31→21:01)
[2018-01-11] MEDS: METOPROLOL SUCCINATE 50 MG TAB.SR.24H PO SCH ×2 (14:31→21:02)
[2018-01-11] MEDS: FOLIC ACID 1 MG TABLET PO SCH (14:32)
[2018-01-11] MEDS: ASCORBIC ACID 500 MG TABLET PO SCH (14:32)
[2018-01-11] MEDS: ASPIRIN 81 MG TABLET, CHEWABLE PO SCH (14:32)
[2018-01-11] MEDS: CLOPIDOGREL BISULFATE 75 MG TABLET PO SCH (14:32)
[2018-01-11] MEDS: ENOXAPARIN SODIUM INJ 40 MG/0.4 ML DISP.SYRIN SUBCUT SCH (14:32)
[2018-01-11] MEDS: ENALAPRIL MALEATE 5 MG TABLET PO SCH ×2 (14:33→21:03)
[2018-01-11] MEDS: ATORVASTATIN CALCIUM 80 MG TABLET PO SCH (21:02)
[2018-01-12] MEDS: OXYCODONE HCL IR 5 MG TABLET PO PRN ×4 (04:57→18:40)
[2018-01-12] MEDS: LANSOPRAZOLE 15 MG TAB.RAP.DR PO SCH (05:00)
[2018-01-12] MEDS: ENOXAPARIN SODIUM INJ 40 MG/0.4 ML DISP.SYRIN SUBCUT SCH (09:54)
[2018-01-12] MEDS: CLOPIDOGREL BISULFATE 75 MG TABLET PO SCH (09:55)
[2018-01-12] MEDS: ASPIRIN 81 MG TABLET, CHEWABLE PO SCH (09:55)
[2018-01-12] MEDS: FOLIC ACID 1 MG TABLET PO SCH (09:55)
[2018-01-12] MEDS: ASCORBIC ACID 500 MG TABLET PO SCH (09:55)
[2018-01-12] MEDS: METOPROLOL SUCCINATE 50 MG TAB.SR.24H PO SCH ×2 (09:57→21:26)
[2018-01-12] MEDS: ENALAPRIL MALEATE 5 MG TABLET PO SCH ×2 (09:57→21:26)
[2018-01-12 14:15] LABS: APPEARANCE,URINE CLEAR; BILIRUBIN,URINE NEGATIVE (NEGATIVE); COLOR,URINE STRAW; GLUCOSE, URINE NEGATIVE (NEGATIVE); KETONES,URINE NEGATIVE (NEGATIVE); LEUKOCYTE ESTERASE,URINE NEGATIVE (NEGATIVE); NITRITE,URINE NEGATIVE (NEGATIVE); PROTEIN,URINE NEGATIVE (NEGATIVE); URINE SPECIFIC GRAVITY 1.008; UROBILINOGEN,URINE NEGATIVE mg/dL (<2.0)
[2018-01-12] MEDS: FENTANYL 75 MCG/HR PATCH.TD72 TOP SCH (17:24)
[2018-01-12] MEDS: ATORVASTATIN CALCIUM 80 MG TABLET PO SCH (21:26)
[2018-01-12] MEDS: NORMAL SALINE 1000 ML 1,000 ML IV PRN (21:34)
--- NOTE | 2018-01-12 22:02 | PDOC PROGRESS REPORT ---
Subjective Progress Note for:: 01/12/18 Subjective:: Patient was seen by the bedside, she has less diarrhea Reason For Visit: ISCHEMIC STROKE Physical Exam Vital Signs: Temp Pulse Resp BP Pulse Ox 99.1 F 63 20 160/89 H 97 01/12/18 20:49 01/12/18 20:49 01/12/18 20:49 01/12/18 20:49 01/12/18 20:49 Intake & Output 01/11/18 01/12/18 01/13/18 06:59 06:59 06:59 Intake Total 767 1637 991 Output Total 066 443 3735 Balance 467 1212 -609 Weight 85.7 kg 87.8 kg General appearance: PRESENT: no acute distress Eye exam: PRESENT: PERRLA Respiratory exam: PRESENT: clear to auscultation tien Cardiovascular exam: PRESENT: +S1, +S2 GI/Abdominal exam: PRESENT: soft Neurological exam: PRESENT: alert Results Laboratory Results: 01/09/18 09:35 01/09/18 09:35 01/12/18 14:00 Urine Color STRAW Urine Appearance CLEAR Urine pH 6.0 Ur Specific [place] 1.008 Urine Protein NEGATIVE Urine Glucose (UA) NEGATIVE Urine Ketones NEGATIVE Urine Blood NEGATIVE Urine Nitrite NEGATIVE Ur Leukocyte Esterase NEGATIVE Urine WBC (Auto) 1 01/08/18 01/08/18 01/08/18 00:32 00:32 05:57 Creatine Kinase 28 L < 20 L CK-MB (CK-2) 0.39 Troponin I < 0.012 01/08/18 01/08/18 01/08/18 05:57 12:22 12:22 Creatine Kinase 26 L CK-MB (CK-2) 0.31 < 0.22 Troponin I < 0.012 < 0.012 Impressions: Head CT 01/07/18 00:00 IMPRESSION: MILD CHRONIC MICROVASCULAR ISCHEMIA. NO ACUTE IMAGING FINDINGS IN THE BRAIN. EVIDENCE OF ACUTE STROKE: NO. Head MRI 01/07/18 19:39 IMPRESSION: There is the appearance of acute infarction involving the left posterior parietal lobe. EVIDENCE OF ACUTE STROKE: Yes LEFT MCA Carotid Doppler Study 01/08/18 00:00 IMPRESSION: NO HEMODYNAMICALLY SIGNIFICANT STENOSIS. Assessment & Plan - Diagnosis (1) Left acute arterial ischemic stroke, MCA (middle cerebral artery) Is this a current diagnosis for this admission?: Yes (2) Hypertension Qualifiers: Hypertension type: essential hypertension Qualified Code(s): I10 - Essential (primary) hypertension Is this a current diagnosis for this admission?: Yes (3) Sickle cell disease Qualifiers: Sickle-cell associated disorders: without crisis Qualified Code(s): D57.1 - Sickle-cell disease without crisis Is this a current diagnosis for this admission?: Yes (4) Gastroenteritis Is this a current diagnosis for this admission?: Yes - Plan Summary Plan Summary: Continue treatment
[2018-01-13] MEDS: OXYCODONE HCL IR 5 MG TABLET PO PRN ×4 (05:30→22:08)
[2018-01-13] MEDS: LANSOPRAZOLE 15 MG TAB.RAP.DR PO SCH (05:30)
[2018-01-13] MEDS: ENOXAPARIN SODIUM INJ 40 MG/0.4 ML DISP.SYRIN SUBCUT SCH (10:41)
[2018-01-13] MEDS: ASPIRIN 81 MG TABLET, CHEWABLE PO SCH (10:41)
[2018-01-13] MEDS: ENALAPRIL MALEATE 5 MG TABLET PO SCH ×2 (10:41→22:08)
[2018-01-13] MEDS: ASCORBIC ACID 500 MG TABLET PO SCH (10:42)
[2018-01-13] MEDS: FOLIC ACID 1 MG TABLET PO SCH (10:42)
[2018-01-13] MEDS: CLOPIDOGREL BISULFATE 75 MG TABLET PO SCH (10:42)
[2018-01-13] MEDS: METOPROLOL SUCCINATE 50 MG TAB.SR.24H PO SCH ×2 (10:44→22:08)
[2018-01-13] MEDS: NORMAL SALINE 1000 ML 1,000 ML IV PRN (15:58)
--- NOTE | 2018-01-13 20:37 | PDOC PROGRESS REPORT ---
Subjective Progress Note for:: 01/13/18 Subjective:: She was seen by the bedside, she will hopefully be discharged home tomorrow Reason For Visit: ISCHEMIC STROKE Physical Exam Vital Signs: Temp Pulse Resp BP Pulse Ox 98.7 F 58 L 16 131/65 H 99 01/13/18 16:11 01/13/18 16:11 01/13/18 16:11 01/13/18 16:11 01/13/18 16:11 Intake & Output 01/12/18 01/13/18 01/14/18 06:59 06:59 06:59 Intake Total 1637 1141 2000 Output Total 425 2300 800 Balance 1212 -1159 1200 Weight 87.8 kg 88.8 kg General appearance: PRESENT: no acute distress Eye exam: PRESENT: PERRLA Respiratory exam: PRESENT: clear to auscultation tien Cardiovascular exam: PRESENT: +S1, +S2 GI/Abdominal exam: PRESENT: soft Neurological exam: PRESENT: alert, CN II-XII grossly intact Results Laboratory Results: 01/09/18 09:35 01/09/18 09:35 01/08/18 01/08/18 01/08/18 00:32 00:32 05:57 Creatine Kinase 28 L < 20 L CK-MB (CK-2) 0.39 Troponin I < 0.012 01/08/18 01/08/18 01/08/18 05:57 12:22 12:22 Creatine Kinase 26 L CK-MB (CK-2) 0.31 < 0.22 Troponin I < 0.012 < 0.012 Impressions: Head CT 01/07/18 00:00 IMPRESSION: MILD CHRONIC MICROVASCULAR ISCHEMIA. NO ACUTE IMAGING FINDINGS IN THE BRAIN. EVIDENCE OF ACUTE STROKE: NO. Head MRI 01/07/18 19:39 IMPRESSION: There is the appearance of acute infarction involving the left posterior parietal lobe. EVIDENCE OF ACUTE STROKE: Yes LEFT MCA Carotid Doppler Study 01/08/18 00:00 IMPRESSION: NO HEMODYNAMICALLY SIGNIFICANT STENOSIS. Assessment & Plan - Diagnosis (1) Left acute arterial ischemic stroke, MCA (middle cerebral artery) Is this a current diagnosis for this admission?: Yes (2) Hypertension Qualifiers: Hypertension type: essential hypertension Qualified Code(s): I10 - Essential (primary) hypertension Is this a current diagnosis for this admission?: Yes (3) Sickle cell disease Qualifiers: Sickle-cell associated disorders: without crisis Qualified Code(s): D57.1 - Sickle-cell disease without crisis Is this a current diagnosis for this admission?: Yes (4) Gastroenteritis Is this a current diagnosis for this admission?: Yes
--- NOTE | 2018-01-13 20:56 | PDOC DISCHARGE SUMMARY ---
General - Admit/Disc Date/PCP Admission Date/Primary Care Provider: 01/07/18 19:53 ZULY MORALEZ MD Discharge Date: 01/14/18 - Discharge Diagnosis (1) Left acute arterial ischemic stroke, MCA (middle cerebral artery) Is this a current diagnosis for this admission?: Yes (2) Hypertension Is this a current diagnosis for this admission?: Yes (3) Sickle cell disease Is this a current diagnosis for this admission?: Yes (4) Gastroenteritis Is this a current diagnosis for this admission?: Yes - Additional Information Prescriptions: Atorvastatin Calcium [Lipitor 80 mg Tablet] 80 mg PO QHS #90 tablet Aspirin [Aspirin 81 mg Chewable Tablet] 81 mg PO DAILY #90 tab.chew Clopidogrel Bisulfate [Plavix 75 mg Tablet] 75 mg PO DAILY #90 tablet Home Medications: Folic Acid 1 mg PO DAILY 11/10/11 Oxycodone HCl/Acetaminophen [Percocet 10-325 mg Tablet] 1 each PO Q4HP PRN 11/09 Metoprolol Succinate [Toprol Xl] 50 mg PO Q12 09/21/14 Vitamin D 3 1,000 tab PO DAILY 09/21/14 Ascorbic Acid [Vitamin C 500 mg Tablet] 500 mg PO DAILY 01/07/18 Enalapril Maleate [Vasotec] 5 mg PO Q12 01/07/18 Fentanyl [Duragesic 75 Mcg/Hr Transdermal Patch] 1 patch TOP Q3D 01/07/18 Omeprazole 20 mg PO DAILY 01/07/18 Acetaminophen [Tylenol 325 mg Tablet] 650 mg PO Q4HP PRN tablet 01/13/18 Aspirin [Aspirin 81 mg Chewable Tablet] 81 mg PO DAILY #90 tab.chew 01/13/18 Atorvastatin Calcium [Lipitor 80 mg Tablet] 80 mg PO QHS #90 tablet 01/13/18 Clopidogrel Bisulfate [Plavix 75 mg Tablet] 75 mg PO DAILY #90 tablet 01/13/18 History of Present Illness History of Present Illness: JAI MCKINLEY is a 62 year old female,she has a history of sickle cell disease, hypertension, type 2 diabetes mellitus, she came to emergency room for evaluation of a 3-day history of dysphagia, in the emergency room CT head was done, it was negative for any acute pathology. Patient was obviously dysphasic does suspect a stroke. MRI head was done without contrast, it demonstrated abnormal diffusion on the diffusion imaging in the left posterior parietal cortex. This is consistent with left MCA territory stroke Hospital Course Hospital Course: Patient was managed for left MCA infarct, she suffered motor deficit from the speech she had dysphasia, she regained part of the speech function, hospital course was complicated with diarrhea. She has a history of sickle cell disease she was hydrated to prevent sickle cell crisis Physical Exam Vital Signs: Temp Pulse Resp BP Pulse Ox 98.7 F 58 L 16 131/65 H 99 01/13/18 16:11 01/13/18 16:11 01/13/18 16:11 01/13/18 16:11 01/13/18 16:11 Intake & Output 01/12/18 01/13/18 01/14/18 06:59 06:59 06:59 Intake Total 1637 1141 2000 Output Total 425 2300 800 Balance 1212 -1159 1200 Weight 87.8 kg 88.8 kg General appearance: PRESENT: no acute distress Head exam: PRESENT: atraumatic, normocephalic Eye exam: PRESENT: PERRLA Mouth exam: PRESENT: moist, tongue midline Neck exam: PRESENT: full ROM Respiratory exam: PRESENT: clear to auscultation tien Cardiovascular exam: PRESENT: RRR, +S1, +S2 Vascular exam: PRESENT: normal capillary refill GI/Abdominal exam: PRESENT: normal bowel sounds, soft Rectal exam: PRESENT: deferred Neurological exam: PRESENT: alert, CN II-XII grossly intact Psychiatric exam: PRESENT: depressed Results Laboratory Results: 01/09/18 09:35 01/09/18 09:35 01/08/18 01/08/18 01/08/18 00:32 00:32 05:57 Creatine Kinase 28 L < 20 L CK-MB (CK-2) 0.39 Troponin I < 0.012 01/08/18 01/08/18 01/08/18 05:57 12:22 12:22 Creatine Kinase 26 L CK-MB (CK-2) 0.31 < 0.22 Troponin I < 0.012 < 0.012 Impressions: Head CT 01/07/18 00:00 IMPRESSION: MILD CHRONIC MICROVASCULAR ISCHEMIA. NO ACUTE IMAGING FINDINGS IN THE BRAIN. EVIDENCE OF ACUTE STROKE: NO. Head MRI 01/07/18 19:39 IMPRESSION: There is the appearance of acute infarction involving the left posterior parietal lobe. EVIDENCE OF ACUTE STROKE: Yes LEFT MCA Carotid Doppler Study 01/08/18 00:00 IMPRESSION: NO HEMODYNAMICALLY SIGNIFICANT STENOSIS. Qualifiers - * PATIENT BEING DISCHARGED WITH ANY OF THE FOLLOWING DIAGNOSIS: No, Stroke VTE patient discharged on overlapping Therapy?: Yes Stroke Pt being discharged on Anti-thrombolytic therapy?: Yes Stroke Pt being discharged on Anti-coagulation therapy?: Yes Stroke Pt being discharged on Statins?: Yes
[2018-01-13] MEDS: ATORVASTATIN CALCIUM 80 MG TABLET PO SCH (22:08)
[2018-01-14] MEDS: LANSOPRAZOLE 15 MG TAB.RAP.DR PO SCH (06:00)
[2018-01-14] MEDS: ENALAPRIL MALEATE 5 MG TABLET PO SCH (09:24)
[2018-01-14] MEDS: ENOXAPARIN SODIUM INJ 40 MG/0.4 ML DISP.SYRIN SUBCUT SCH (09:24)
[2018-01-14] MEDS: ASCORBIC ACID 500 MG TABLET PO SCH (09:24)
[2018-01-14] MEDS: ASPIRIN 81 MG TABLET, CHEWABLE PO SCH (09:24)
[2018-01-14] MEDS: METOPROLOL SUCCINATE 50 MG TAB.SR.24H PO SCH (09:24)
[2018-01-14] MEDS: CLOPIDOGREL BISULFATE 75 MG TABLET PO SCH (09:24)
[2018-01-14] MEDS: FOLIC ACID 1 MG TABLET PO SCH (09:24)
[2018-01-14 12:08] VITALS: BP 149/82
== END 2018-01-14 12:55 | disposition home health service (06) | DRG 66 ==
LOC: ER 16:34 → EH 19:53 → 3W 22:42
PROVIDERS: ADMIT Internal Medicine; ATTEND Internal Medicine
DX: I63.512 Cerebral infarction due to unspecified occlusion or stenosis of left middle cerebral artery (principal); D57.1 Sickle-cell disease without crisis; I10 Essential (primary) hypertension; K52.9 Noninfective gastroenteritis and colitis, unspecified; K21.9 Gastro-esophageal reflux disease without esophagitis; E11.8 Type 2 diabetes mellitus with unspecified complications; R47.02 Dysphasia; R47.81 Slurred speech; Z96.642 Presence of left artificial hip joint
CPT/HCPCS: 36415; 70450; 70551; 80053; 80061; 81001; 82550; 82553; 84484; 85025; 93005; 93010; 93306; 93880; 99285; A9270-GY; J1650; J2405; J3490; J7030

== ENCOUNTER → 2018-11-04 | Outpatient (CLI) | payer MEDICAID ==
[2018-11-04 15:29] LABS: C DIFFICILE GDH NEGATIVE (NEGATIVE)
[2018-11-05 17:22] LABS: URINE AMPHETAMINES SCREEN NEGATIVE; URINE BARBITURATES SCREEN NEGATIVE; URINE BENZODIAZEPINES SCREEN NEGATIVE; URINE COCAINE SCREEN NEGATIVE; URINE MARIJUANA (THC) SCREEN NEGATIVE; URINE METHADONE SCREEN NEGATIVE; URINE PHENCYCLIDINE SCREEN NEGATIVE
== END ==
LOC: OD 11:38
PROVIDERS: ATTEND Internal Medicine
DX: R19.7 Diarrhea, unspecified (principal)
CPT/HCPCS: 80307; 87045; 87205; 87324; 87449; 89055

== ENCOUNTER 2019-07-30 14:28 | Inpatient (IN) | payer MEDICARE, MEDICAID ==
[2019-07-30] MEDS ORDERED: ONDANSETRON HCL INJ/PF 4 MG/2 ML SDV IV ONE (14:49)
[2019-07-30] MEDS ORDERED: HYDROCODONE/ACETAMINOPHEN 5-325 MG TABLET PO ONE (14:49)
--- NOTE | 2019-07-30 14:52 | ER Document Report ---
ED General - General Chief Complaint: Direct Admit/Private MD Stated Complaint: DIRECT ADMIT Time Seen by Provider: 07/30/19 14:41 Notes: Patient is a 64-year-old female who presents to the emergency department with a chief complaint of hematemesis. For the past 2 weeks, the patient has had the symptoms. Patient states that she has not recently vomited. Patient also has direct admission orders from Dr. Larson. Patient has a history of sickle cell disease. Patient states that she has some pain in her left arm. States she feels like this is her sickle cell pain. TRAVEL OUTSIDE OF THE [place] IN LAST 30 DAYS: No - Related Data Allergies/Adverse Reactions: meperidine HCl [From Demerol] Allergy (Intermediate, Verified 07/30/19 14:47) facial swelling, throat swelling iodine [Iodine] Allergy (Verified 07/30/19 14:47) RASH Past Medical History - Social History Smoking Status: Never Smoker Chew tobacco use (# tins/day): No Frequency of alcohol use: None Drug Abuse: None Family History: Reviewed & Not Pertinent Patient has homicidal ideation: No - Past Medical History Cardiac Medical History: Reports: Hx Hypertension Denies: Hx Heart Attack Pulmonary Medical History: Denies: Hx Asthma Neurological Medical History: Reports: Hx Cerebrovascular Accident. Denies: Hx Seizures Endocrine Medical History: Reports: Hx Diabetes Mellitus Type 2 Renal/ Medical History: Denies: Hx Peritoneal Dialysis GI Medical History: Reports: Hx Gastroesophageal Reflux Disease. Denies: Hx Hepatitis, Hx Hiatal Hernia, Hx Ulcer Infectious Medical History: Denies: Hx Hepatitis Past Surgical History: Reports: Hx Appendectomy, Hx Cholecystectomy, Hx Hysterectomy, Hx Orthopedic Surgery - left hip replacement. Denies: Hx Mastectomy, Hx Open Heart Surgery, Hx Pacemaker - Immunizations Hx Diphtheria, Pertussis, Tetanus Vaccination: No Hx Pneumococcal Vaccination: 02/10/14 Review of Systems - Review of Systems Notes: REVIEW OF SYSTEMS: CONSTITUTIONAL : Denies recent illness. Denies recent unintentional weight loss. Denies fever, chills, or sweats. EENT: Denies eye, ear, throat, or mouth pain, discharge, or symptoms. Denies nasal or sinus congestion. CARDIOVASCULAR: Denies chest pain. RESPIRATORY: Denies shortness of breath, cough, congestion, difficulty breathing, or wheezing. GASTROINTESTINAL: See HPI. GENITOURINARY: Denies difficulty urinating, burning, blood in urine, urgency or frequency. MUSCULOSKELETAL: Denies neck and back pain. Denies joint pain or swelling. SKIN: Denies rash, itchiness, or lesions HEMATOLOGIC : Denies easy bruising or bleeding. LYMPHATIC: Denies swollen, painful, enlarged glands. NEUROLOGICAL: Denies no numbness or tingling denies weakness. Denies headache. Denies altered mental status. Denies alteration in speech. PSYCHIATRIC: Denies stress, anxiety, alteration in sleep patterns, or depression. All other systems reviewed and negative. Physical Exam - Vital signs Vitals: Temp Pulse Resp BP Pulse Ox 99.3 F 66 16 167/103 H 98 07/30/19 14:37 07/30/19 14:37 07/30/19 14:37 07/30/19 14:37 07/30/19 14:37 - Notes Notes: PHYSICAL EXAMINATION: GENERAL: Appears generally not feeling well, no acute distress. HEAD: Normocephalic, atraumatic. EYES: PERRL, conjunctiva normal, all extraocular movements intact, sclera nonicteric ENT: Moist mucous membranes. NECK: Supple, no noticeable swelling, redness, rash. Normal range of motion. LUNGS: Equal breath sounds bilaterally and clear to auscultation. No wheezes rales or rhonchi. CARDIOVASCULAR: S1-S2, regular rate, regular rhythm. Radial pulses 2+, normal. ABDOMEN: Normoactive bowel sounds. Soft, nontender, no guarding, no rebound tenderness, and no masses palpated. EXTREMITIES: Normal strength and range of motion, no pitting or edema. No cyanosis. NEUROLOGICAL: Moves all extremities upon command. Strength 5/5 in all extremities. PSYCH: Normal mood, normal affect. SKIN: Warm, dry. No rash, lesions, ulcerations noted. Normal skin turgor. Course - Re-evaluation Re-evalutation: 07/30/19 14:51 Patient has direct admission orders to [facility] from Dr. Larson. Orders placed. - Vital Signs Vital signs: Temp Pulse Resp BP Pulse Ox 99.3 F 66 16 167/103 H 98 07/30/19 14:37 07/30/19 14:37 07/30/19 14:37 07/30/19 14:37 07/30/19 14:37 - Laboratory Result Diagrams: 07/30/19 17:20 07/30/19 20:29 Discharge - Discharge Clinical Impression: Weight loss Hematemesis Qualifiers: Nausea presence: with nausea Qualified Code(s): K92.0 - Hematemesis Anemia Qualifiers: Anemia type: unspecified type Qualified Code(s): D64.9 - Anemia, unspecified Condition: Stable Disposition: ADMITTED INPATIENT Admitting Provider: Markga Unit Admitted: [facility]
--- NOTE | 2019-07-30 15:22 | RADIOLOGY REPORT (SQ) ---
EXAM DESCRIPTION: CHEST SINGLE VIEW IMAGES COMPLETED DATE/TIME: 07/30/2019 3:04 pm REASON FOR STUDY: weakness COMPARISON: 09/28/2018 EXAM PARAMETERS: NUMBER OF VIEWS: One view. TECHNIQUE: Single frontal radiographic view of the chest acquired. RADIATION DOSE: NA LIMITATIONS: None. FINDINGS: LUNGS AND PLEURA: Retrocardiac opacification on the left. The medial left hemidiaphragm i s obscured. Small pleural effusion is suggested. MEDIASTINUM AND HILAR STRUCTURES: No masses. Contour normal. HEART AND VASCULAR STRUCTURES: Heart size is borderline. No pulmonary edema. BONES: No acute findings. HARDWARE: None in the chest. OTHER: No other significant finding. IMPRESSION: Cardiomegaly without pulmonary edema. Possible small left pleural effusion. Left lower lobe airspace disease, pneumonia versus atelectasis. TECHNICAL DOCUMENTATION: JOB ID: [id number] 2010 [employer]- All Rights Reserved Reading location - IP/workstation name: [email or web address]
[2019-07-30] MEDS: 1/2 NORMAL SALINE 1,000 ML IV PRN (16:11)
[2019-07-30 17:36] LABS: HEMATOCRIT 38.4 % (36.0-47.0); HEMOGLOBIN 12.6 g/dL (12.0-15.5); MEAN CORPUSCULAR HEMOGLOBIN 24.4 pg (27.0-33.4); MEAN CORPUSCULAR HGB CONC 32.9 g/dL (32.0-36.0); MEAN CORPUSCULAR VOLUME 74 fl (80-97); PLATELET COUNT 574 10^3/uL (150-450); RED BLOOD COUNT 5.18 10^6/uL (3.72-5.28); RED CELL DISTRIBUTION WIDTH 20.1 % (11.5-14.0); WHITE BLOOD COUNT 13.9 10^3/uL (4.0-10.5)
[2019-07-30 18:03] LABS: ABSOLUTE LYMPHOCYTES# (MANUAL) 3.3 10^3/uL (0.5-4.7); ABSOLUTE MONOCYTES # (MANUAL) 0.7 10^3/uL (0.1-1.4); BASOPHILS % (MANUAL) 0 % (0-2); EOSINOPHILS % (MANUAL) 2 % (0-6); LYMPHOCYTES % (MANUAL) 24 % (13-45); MONOCYTES % (MANUAL) 5 % (3-13); SEGMENTED NEUTROPHILS % (MAN) 69 % (42-78); TOTAL CELLS COUNTED 100
[2019-07-30 18:05] LABS: ANISOCYTOSIS 2+; HYPOCHROMASIA SLIGHT; PLATELET COMMENT INCREASED; TARGET CELLS 1+; TOXIC GRANULATION SLIGHT; TOXIC VACUOLATION PRESENT
[2019-07-30 18:12] LABS: ALBUMIN 4.4 g/dL (3.5-5.0); ALKALINE PHOSPHATASE 97 U/L (38-126); ANION GAP 10 (5-19); ASPARTATE AMINO TRANSFERASE 26 U/L (14-36); BILIRUBIN,DIRECT 0.1 mg/dL (0.0-0.4); BILIRUBIN,TOTAL 0.9 mg/dL (0.2-1.3); BLOOD UREA NITROGEN 12 mg/dL (7-20); CALCIUM 9.7 mg/dL (8.4-10.2); CARBON DIOXIDE 26 mmol/L (22-30); CHLORIDE 105 mmol/L (98-107); GLUCOSE 76 mg/dL (75-110); POTASSIUM 4.3 mmol/L (3.6-5.0); TOTAL PROTEIN 7.9 g/dL (6.3-8.2)
[2019-07-30 18:46] LABS: FREE T4 (FREE THYROXINE) 1.12 ng/dL (0.78-2.19)
[2019-07-30 19:00] LABS: THYROID STIMULATING HORMONE 0.41 uIU/mL (0.47-4.68)
--- NOTE | 2019-07-30 20:12 | PDOC H&P ---
History of Present Illness Admission Date/PCP: 07/30/19 16:14 ZULY MORALEZ MD History of Present Illness: JAI MCKINLEY is a 64 year old female, She came to the office today for evalu ation of vomiting blood for the last 2 weeks, she said whenever she eats she vomits blood, she is not passing any black stool, she has also lost weight, she has a history of sickle cell disease. I felt patient needed to be admitted for evaluation and management because of the hematemesis and the weight loss I suspect a mucosal lesion of the stomach especially neoplasm Past Medical History Cardiac Medical History: Reports: Hypertension Endocrine Medical History: Reports: Diabetes Mellitus Type 2 GI Medical History: Reports: Gastroesophageal Reflux Disease Hematology: Reports: Anemia, Sickle Cell Disease Past Surgical History Past Surgical History: Reports: Appendectomy, Cholecystectomy, Hysterectomy, Orthopedic Surgery - left hip replacement Social History Smoking Status: Never Smoker Electronic Cigarette use?: No Frequency of Alcohol Use: None Hx Recreational Drug Use: No Drugs: None Hx Prescription Drug Abuse: No Family History Family History: Reviewed & Not Pertinent Parental Family History Reviewed: Yes Children Family History Reviewed: Yes Sibling(s) Family History Reviewed.: Yes Medication/Allergy Home Medications: Atorvastatin Calcium [Lipitor 80 mg Tablet] 80 mg PO QHS 09/28/18 Clopidogrel Bisulfate [Plavix 75 mg Tablet] 75 mg PO DAILY 09/28/18 Enalapril Maleate [Vasotec 5 mg Tablet] 5 mg PO Q12 09/28/18 Folic Acid [Folvite 1 mg Tablet] 1 mg PO DAILY 09/28/18 Metoprolol Tartrate [Lopressor 50 mg Tablet] 50 mg PO Q12 09/28/18 Omeprazole 20 mg PO DAILY 09/28/18 Ascorbic Acid [Vitamin C 500 mg Tablet] 500 mg PO DAILY 07/30/19 Cholecalciferol (Vitamin D3) [Vitamin D3 1000 Unit Tablet] 1,000 unit PO DAILY 07/30/19 Hydrocodone/Acetaminophen [Allred 10-325 Tablet] 1 each PO Q6HP PRN 07/30/19 Levetiracetam [Keppra 500 mg Tablet] 1,000 mg PO Q12 07/30/19 Allergies/Adverse Reactions: meperidine HCl [From Demerol] Allergy (Intermediate, Verified 07/30/19 14:47) facial swelling, throat swelling iodine [Iodine] Allergy (Verified 07/30/19 14:47) RASH Review of Systems Constitutional: ABSENT: chills, fever(s), headache(s), weight gain, weight loss Eyes: ABSENT: visual disturbances Ears: ABSENT: hearing changes Cardiovascular: ABSENT: chest pain, dyspnea on exertion, edema, orthropnea, palpitations Respiratory: ABSENT: cough, hemoptysis Gastrointestinal: PRESENT: hematemesis, nausea Genitourinary: ABSENT: dysuria, hematuria Musculoskeletal: ABSENT: joint swelling Integumentary: ABSENT: rash, wounds Neurological: ABSENT: abnormal gait, abnormal speech, confusion, dizziness, fo shirley weakness, syncope Psychiatric: ABSENT: anxiety, depression, homidical ideation, suicidal ideation Endocrine: ABSENT: cold intolerance, heat intolerance, menstrual abnormalities, polydipsia, polyuria Hematologic/Lymphatic: ABSENT: easy bleeding, easy bruising, lymphadenopathy Physical Exam Vital Signs: Temp Pulse Resp BP Pulse Ox 99.3 F 66 16 167/103 H 98 07/30/19 14:37 07/30/19 14:37 07/30/19 14:37 07/30/19 14:37 07/30/19 14:37 Intake & Output 07/29/19 07/30/19 07/31/19 06:59 06:59 06:59 Weight 73.9 kg General appearance: PRESENT: no acute distress Eye exam: PRESENT: PERRLA Respiratory exam: PRESENT: clear to auscultation tien Cardiovascular exam: PRESENT: +S1, +S2 GI/Abdominal exam: PRESENT: soft Neurological exam: PRESENT: alert, CN II-XII grossly intact Results Laboratory Results: 07/30/19 17:20 07/30/19 17:20 07/30/19 07/30/19 07/30/19 17:20 17:20 17:20 WBC 13.9 H RBC 5.18 Hgb 12.6 Hct 38.4 MCV 74 L MCH 24.4 L MCHC 32.9 RDW 20.1 H Plt Count 574 H Seg Neutrophils % Not Reportable Sodium 141.3 Potassium 4.3 Chloride 105 Carbon Dioxide 26 Anion Gap 10 BUN 12 Creatinine 0.61 Est GFR ( Amer) > 60 Glucose 76 Calcium 9.7 Total Bilirubin 0.9 AST 26 Alkaline Phosphatase 97 Total Protein 7.9 Albumin 4.4 TSH 0.41 L Free T4 1.12 Impressions: Chest X-Ray 07/30/19 14:48 IMPRESSION: Cardiomegaly without pulmonary edema. Possible small left pleural effusion. Left lower lobe airspace disease, pneumonia versus atelectasis. Assessment & Plan - Diagnosis (1) Hematemesis Qualifiers: Nausea presence: with nausea Qualified Code(s): K92.0 - Hematemesis Is this a current diagnosis for this admission?: Yes Plan: She has hematemesis associated with weight loss she will need EGD, consult surgery for EGD (2) Weight loss Is this a current diagnosis for this admission?: Yes (3) Sickle cell disease Qualifiers: Sickle-cell associated disorders: without crisis Qualified Code(s): D57.1 - Sickle-cell disease without crisis Is this a current diagnosis for this admission?: Yes
[2019-07-30 20:50] LABS: INTERNATIONAL RATION (INR) 1.05; PARTIAL THROMBOPLASTIN TIME 28.3 SEC (23.5-35.8); PROTHROMBIN TIME 13.7 SEC (11.4-15.4)
[2019-07-30 21:00] LABS: PHOSPHORUS 4.2 mg/dL (2.5-4.5)
[2019-07-30 21:30] LABS: FREE T4 (FREE THYROXINE) 1.25 ng/dL (0.78-2.19)
[2019-07-30 21:32] LABS: ALBUMIN 4.1 g/dL (3.5-5.0); ALKALINE PHOSPHATASE 91 U/L (38-126); ANION GAP 9 (5-19); ASPARTATE AMINO TRANSFERASE 24 U/L (14-36); BILIRUBIN,TOTAL 0.7 mg/dL (0.2-1.3); BLOOD UREA NITROGEN 11 mg/dL (7-20); CALCIUM 9.6 mg/dL (8.4-10.2); CARBON DIOXIDE 27 mmol/L (22-30); CHLORIDE 104 mmol/L (98-107); GLUCOSE 76 mg/dL (75-110); TOTAL PROTEIN 7.5 g/dL (6.3-8.2)
[2019-07-30 21:44] LABS: THYROID STIMULATING HORMONE 0.48 uIU/mL (0.47-4.68)
[2019-07-30] MEDS: LEVETIRACETAM 500 MG TABLET PO SCH (22:34)
[2019-07-30] MEDS: METOPROLOL TARTRATE 50 MG TABLET PO SCH (22:34)
[2019-07-30] MEDS: HYDROCODONE/ACETAMINOPHEN 10-325 MG TABLET PO PRN (22:35)
[2019-07-30] MEDS: ENALAPRIL MALEATE 5 MG TABLET PO SCH (22:36)
[2019-07-30] MEDS: PANTOPRAZOLE SODIUM 40 MG VIAL IV SCH (22:36)
[2019-07-30] MEDS: CHOLECALCIFEROL (D3) 1,000 UNIT (25 MCG) TABLET PO SCH (22:37)
[2019-07-30] MEDS: ASCORBIC ACID 500 MG TABLET PO SCH (22:37)
[2019-07-31] MEDS: PANTOPRAZOLE SODIUM 40 MG VIAL IV SCH ×2 (05:23→17:07)
[2019-07-31] MEDS: HYDROCODONE/ACETAMINOPHEN 10-325 MG TABLET PO PRN ×3 (05:24→20:49)
[2019-07-31 06:00] LABS: HEMATOCRIT 31.6 % (36.0-47.0); HEMOGLOBIN 10.7 g/dL (12.0-15.5); MEAN CORPUSCULAR HEMOGLOBIN 23.9 pg (27.0-33.4); MEAN CORPUSCULAR HGB CONC 33.8 g/dL (32.0-36.0); MEAN CORPUSCULAR VOLUME 71 fl (80-97); PLATELET COUNT 544 10^3/uL (150-450); RED BLOOD COUNT 4.48 10^6/uL (3.72-5.28); RED CELL DISTRIBUTION WIDTH 19.9 % (11.5-14.0); WHITE BLOOD COUNT 14.2 10^3/uL (4.0-10.5)
[2019-07-31 06:23] LABS: ALBUMIN 3.7 g/dL (3.5-5.0); ALKALINE PHOSPHATASE 78 U/L (38-126); ANION GAP 6 (5-19); ASPARTATE AMINO TRANSFERASE 31 U/L (14-36); BILIRUBIN,TOTAL 0.7 mg/dL (0.2-1.3); BLOOD UREA NITROGEN 12 mg/dL (7-20); CALCIUM 8.7 mg/dL (8.4-10.2); CARBON DIOXIDE 27 mmol/L (22-30); CHLORIDE 107 mmol/L (98-107); GLUCOSE 93 mg/dL (75-110); POTASSIUM 3.3 mmol/L (3.6-5.0); TOTAL PROTEIN 7.1 g/dL (6.3-8.2)
[2019-07-31 06:45] LABS: ABSOLUTE LYMPHOCYTES# (MANUAL) 4.1 10^3/uL (0.5-4.7); ABSOLUTE MONOCYTES # (MANUAL) 1.1 10^3/uL (0.1-1.4); BASOPHILS % (MANUAL) 1 % (0-2); EOSINOPHILS % (MANUAL) 1 % (0-6); LYMPHOCYTES % (MANUAL) 29 % (13-45); MONOCYTES % (MANUAL) 8 % (3-13); SEGMENTED NEUTROPHILS % (MAN) 61 % (42-78); TOTAL CELLS COUNTED 100
[2019-07-31 06:46] LABS: ANISOCYTOSIS 2+; HYPOCHROMASIA 1+; OVALOCYTES 1+; PLATELET COMMENT ADEQUATE; POIKILOCYTOSIS 2+; POLYCHROMASIA 1+; TARGET CELLS 1+; TEAR DROP CELLS 1+
[2019-07-31] MEDS: LEVETIRACETAM 500 MG TABLET PO SCH ×2 (10:07→21:04)
[2019-07-31] MEDS: ASCORBIC ACID 500 MG TABLET PO SCH (10:08)
[2019-07-31] MEDS: ENALAPRIL MALEATE 5 MG TABLET PO SCH ×2 (10:08→21:04)
[2019-07-31] MEDS: CHOLECALCIFEROL (D3) 1,000 UNIT (25 MCG) TABLET PO SCH (10:08)
[2019-07-31] MEDS: METOPROLOL TARTRATE 50 MG TABLET PO SCH ×2 (10:08→21:04)
--- NOTE | 2019-07-31 10:49 | PDOC PROGRESS REPORT ---
Subjective Progress Note for:: 07/31/19 Subjective:: Patient was admitted yesterday by Dr. Larson for possible blood in the vomiting and for endoscopy will resolve the patient's patients denied any blood in the vomiting. Patient is complaining of when she eats she had a cough with some blood-tinged and surgery on the bedside to evaluate and suggest there is no need for endoscopy right now because patient does not have any blood in the vomiting Patient's chest x-ray suggested questionable pneumonia versus atelectasis Is denied any fever no chills patient's white count is elevated Patient significant weight loss denied any abdominal pain Reason For Visit: HEMATEMESIS,WEIGHT LOSS,SICKLE CELL DISEASE Physical Exam Vital Signs: Temp Pulse Resp BP Pulse Ox 98.4 F 103 H 16 130/77 H 97 07/31/19 07:57 07/31/19 07:57 07/31/19 07:57 07/31/19 07:57 07/31/19 07:57 Intake & Output 07/30/19 07/31/19 08/01/19 06:59 06:59 06:59 Intake Total 550 Output Total 250 Balance 300 Weight 72.2 kg General appearance: PRESENT: no acute distress, well-developed, well-nourished Head exam: PRESENT: atraumatic, normocephalic Eye exam: PRESENT: conjunctiva pink, EOMI, PERRLA. ABSENT: scleral icterus Ear exam: PRESENT: normal external ear exam Mouth exam: PRESENT: moist, tongue midline Neck exam: PRESENT: full ROM. ABSENT: carotid bruit, JVD, lymphadenopathy, thyromegaly Respiratory exam: PRESENT: clear to auscultation tien Cardiovascular exam: PRESENT: RRR. ABSENT: diastolic murmur, rubs, systolic murmur Pulses: PRESENT: normal dorsalis pedis pul, +2 pedal pulses bilateral Vascular exam: PRESENT: normal capillary refill GI/Abdominal exam: PRESENT: normal bowel sounds, soft. ABSENT: distended, guar ding, mass, organolmegaly, rebound, tenderness Rectal exam: PRESENT: deferred Neurological exam: PRESENT: alert, awake, oriented to person, oriented to place, oriented to time, oriented to situation, CN II-XII grossly intact. ABSENT: motor sensory deficit Psychiatric exam: PRESENT: appropriate affect, normal mood. ABSENT: homicidal ideation, suicidal ideation Skin exam: PRESENT: dry, intact, warm. ABSENT: cyanosis, rash Results Laboratory Results: 07/31/19 05:06 07/31/19 05:06 07/30/19 07/30/19 07/30/19 17:20 17:20 17:20 WBC 13.9 H RBC 5.18 Hgb 12.6 Hct 38.4 MCV 74 L MCH 24.4 L MCHC 32.9 RDW 20.1 H Plt Count 574 H Seg Neutrophils % Not Reportable Sodium 141.3 Potassium 4.3 Chloride 105 Carbon Dioxide 26 Anion Gap 10 BUN 12 Creatinine 0.61 Est GFR ( Amer) > 60 Glucose 76 Calcium 9.7 Phosphorus Magnesium Total Bilirubin 0.9 AST 26 Alkaline Phosphatase 97 Total Protein 7.9 Albumin 4.4 Lipase TSH 0.41 L Free T4 1.12 07/30/19 07/30/19 07/30/19 20:29 20:29 20:29 WBC RBC Hgb Hct MCV MCH MCHC RDW Plt Count Seg Neutrophils % Sodium 139.7 Potassium 4.0 Chloride 104 Carbon Dioxide 27 Anion Gap 9 BUN 11 Creatinine 0.60 Est GFR ( Amer) > 60 Glucose 76 Calcium 9.6 Phosphorus 4.2 Magnesium 2.0 Total Bilirubin 0.7 AST 24 Alkaline Phosphatase 91 Total Protein 7.5 Albumin 4.1 Lipase 232.2 TSH 0.48 Free T4 1.25 07/31/19 07/31/19 05:06 05:06 WBC 14.2 H RBC 4.48 Hgb 10.7 L Hct 31.6 L MCV 71 L MCH 23.9 L MCHC 33.8 RDW 19.9 H Plt Count 544 H Seg Neutrophils % Not Reportable Sodium 140.1 Potassium 3.3 L Chloride 107 Carbon Dioxide 27 Anion Gap 6 BUN 12 Creatinine 0.61 Est GFR ( Amer) > 60 Glucose 93 Calcium 8.7 Phosphorus Magnesium Total Bilirubin 0.7 AST 31 Alkaline Phosphatase 78 Total Protein 7.1 Albumin 3.7 Lipase TSH Free T4 Impressions: Chest X-Ray 07/30/19 14:48 IMPRESSION: Cardiomegaly without pulmonary edema. Possible small left pleural effusion. Left lower lobe airspace disease, pneumonia versus atelectasis. Assessment & Plan - Diagnosis (1) Hemoptysis Is this a current diagnosis for this admission?: Yes Plan: We will get the CT of the chest to rule out other etiology surgeon wants to wait the CT scan report before he puts the endoscopy will continue with the Protonix (2) Pneumonia Qualifiers: Lung location: unspecified part of lung Is this a current diagnosis for this admission?: Yes Plan: Start the patient on IV antibiotic (3) Weight loss Is this a current diagnosis for this admission?: Yes Plan: We will get the CT of the chest and abdomen and pelvis to further evaluate (4) CVA (cerebral vascular accident) Qualifiers: CVA mechanism: unspecified Qualified Code(s): I63.9 - Cerebral infarction, unspecified Is this a current diagnosis for this admission?: Yes (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 Is this a current diagnosis for this admission?: Yes (6) Sickle cell disease Qualifiers: Sickle-cell associated disorders: without crisis Qualified Code(s): D57.1 - Sickle-cell disease without crisis Is this a current diagnosis for this admission?: Yes - Time Time Spent with patient: 25-34 minutes Level of Care: IMCU Medications reviewed and adjusted accordingly: Yes Anticipated discharge: Other Within: Other - Plan Summary Plan Summary: We will get the CT scan of the chest abdomen and pelvis Continues the Protonix Start on IV antibiotics Discussed with the surgery reevaluate in the morning about the endoscopy
[2019-07-31] MEDS ORDERED: POTASSIUM CHLORIDE 20 MEQ/50 ML RTU IV ONE (11:00)
[2019-07-31] MEDS: CEFEPIME 1 GM/D5W RTU 1 GM/50 ML RTUPB IV SCH ×3 (11:35→21:04)
--- NOTE | 2019-07-31 11:42 | EKG REPORT ---
SEVERITY:- ABNORMAL ECG - SINUS RHYTHM MULTIPLE ATRIAL PREMATURE COMPLEXES LEFT VENTRICULAR HYPERTROPHY NONSPECIFIC T ABNORMALITIES, INFERIOR LEADS : Confirmed by: Jorge Thomas MD 31-Jul-2019 11:41:46
--- NOTE | 2019-07-31 13:12 | RADIOLOGY REPORT (SQ) ---
EXAM DESCRIPTION: CT CHEST WITHOUT; CT ABD/PELVIS NO ORAL OR IV IMAGES COMPLETED DATE/TIME: 07/31/2019 12:31 pm REASON FOR STUDY: hemoptysis; hemoptysis, wt loss COMPARISON: 03/25/2014 and 11/21/2011 TECHNIQUE: CT scan of the chest performed without intravenous contrast using helical scanning techni que. Images reviewed with lung, soft tissue and bone windows. Reconstructed coronal and sagittal MPR images reviewed. All images stored on PACS. CT scan of the abdomen and pelvis performed without intravenous contrast and withoutoral contrast usi ng helical scanning technique with dynamic intravenous contrast injection. Images reviewed with lung , soft tissue and bone windows. Reconstructed coronal and sagittal MPR images reviewed. All images stored on PACS. All CT scanners at this facility use dose modulation, iterative reconstruction, and/or weight based d osing when appropriate to reduce radiation dose to as low as reasonably achievable (ALARA). [facility]: Dose Right [facility]: CareDose [facility]: Dose Right [facility]: Teradose 4D [facility]: [employer] RADIATION DOSE: CT Rad equipment meets quality standard of care and radiation dose reduction techniq ues were employed. CTDIvol: 7.0 mGy. DLP: 460 mGy-cm. mGy. LIMITATIONS: No technical limitations. FINDINGS: CHEST: AXILLAE: No adenopathy. CHEST WALL: No masses. No subcutaneous air. LUNGS: No nodules or masses. No pneumothorax. No infiltrates. PLEURA: Small left-sided pleural effusion demonstrating Hounsfield units consistent with simple fluid . This is seen in area of pleural thickening on previous examinations. Compressive atelectasis is s een of the adjacent left lower lobe. THYROID: No focal mass. HILAR AND MEDIASTINAL STRUCTURES: No identified masses or abnormal nodes. AORTA AND GREAT VESSELS: Ectatic appearing ascending aorta. HEART: Cardiomegaly. Scant pericardial effusion. Marked coronary artery calcifications. HARDWARE AND LIFELINES: None. BONES: No significant finding. OTHER: No other significant finding. ABDOMEN AND PELVIS: LIVER: Normal size. No masses. No dilated ducts. SPLEEN: Diminutive and calcified, unchanged from previous imaging. PANCREAS: No masses. No significant calcifications. No adjacent inflammation or peripancreatic flui d collections. Pancreatic duct not dilated. GALLBLADDER: Surgically absent. ADRENAL GLANDS: No significant masses or asymmetry. RIGHT KIDNEY AND URETER: Assessment limited by lack of IV contrast. Lobular appearing contours are i ncompletely characterized. No significant calcifications. No hydronephrosis or hydroureter. LEFT KIDNEY AND URETER: Assessment limited by lack of IV contrast. Exophytic simple cysts appear min imally enlarged on today's examination. No significant calcifications. No hydronephrosis or hydro ureter. AORTA AND VESSELS: No aneurysm. RETROPERITONEUM: To the left of the infrarenal aorta, there is a 2.0 x 2.0 x 3.0 cm hypoattenuating s tructure which may represent a prominent lymph node. No retroperitoneal hemorrhage. APPENDIX: Not visualized. LARGE AND SMALL BOWEL: Diverticulosis without focal inflammatory changes. No obstruction. ABDOMINAL WALL: No hernia or masses. PERITONEAL CAVITY: No free air. No free fluid. No peritoneal implants or masses. PELVIS: No mass or free fluid. Normal bladder. BONES: Status post left total hip arthroplasty. Degenerative changes are seen of the spine. No susp icious lytic or blastic osseous lesions. OTHER: In the left proximal thigh, there is a 5.0 x 5.9 by 5.9 cm well-circumscribed rounded mass dem onstrating a uniform rim and internal Hounsfield units suggesting simple fluid. This is poorly milana cterized due 2 beam hardening artifact on the basis of total hip arthroplasty hardware, but retrospec tively appears to have been present to some degree on 2012 CT imaging. IMPRESSION: Small left-sided pleural effusion in an area of previous pleural thickening is a nonspec ific finding. Infectious and neoplastic processes are in the differential. No evidence of acute intra-abdominal infectious/inflammatory process. Somewhat abnormal appearance o f the right kidney is incompletely characterized in the absence of intravenous contrast material. A 2.0 x 2.0 x 3.0 cm retroperitoneal structure may represent a prominent lymph node ; no additional ret roperitoneal findings are demonstrated on this limited exam. 5.0 x 5.9 x 5.9 cm cystic lesion in the left inguinal region is likewise poorly characterized; in the setting of previous instrumentation, this may represent a pseudoaneurysm. Sonographic evaluation ma y be helpful in further characterization. TECHNICAL DOCUMENTATION: JOB ID: [id number] Quality ID # [id number]: Final reports with documentation of one or more dose reduction techniques (e.g., Au tomated exposure control, adjustment of the mA and/or kV according to patient size, use of iterative reconstruction technique) 2010 [employer]- All Rights Reserved Reading location - IP/workstation name: [email or web address]
[2019-07-31] MEDS: 1/2 NORMAL SALINE 1,000 ML IV PRN (20:49)
[2019-08-01] MEDS: HYDROCODONE/ACETAMINOPHEN 10-325 MG TABLET PO PRN ×4 (03:31→23:26)
[2019-08-01 05:43] LABS: HEMATOCRIT 29.1 % (36.0-47.0); MEAN CORPUSCULAR HEMOGLOBIN 24.2 pg (27.0-33.4); MEAN CORPUSCULAR HGB CONC 34.5 g/dL (32.0-36.0); MEAN CORPUSCULAR VOLUME 70 fl (80-97); PLATELET COUNT 483 10^3/uL (150-450); RED BLOOD COUNT 4.15 10^6/uL (3.72-5.28); RED CELL DISTRIBUTION WIDTH 19.7 % (11.5-14.0); WHITE BLOOD COUNT 12.8 10^3/uL (4.0-10.5)
[2019-08-01 06:12] LABS: ABSOLUTE LYMPHOCYTES# (MANUAL) 2.7 10^3/uL (0.5-4.7); ABSOLUTE MONOCYTES # (MANUAL) 1.2 10^3/uL (0.1-1.4); BASOPHILS % (MANUAL) 0 % (0-2); EOSINOPHILS % (MANUAL) 4 % (0-6); LYMPHOCYTES % (MANUAL) 21 % (13-45); MONOCYTES % (MANUAL) 9 % (3-13); SEGMENTED NEUTROPHILS % (MAN) 66 % (42-78); TOTAL CELLS COUNTED 100
[2019-08-01 06:13] LABS: ANISOCYTOSIS 2+; PLATELET COMMENT ADEQUATE; POLYCHROMASIA 1+
[2019-08-01] MEDS: PANTOPRAZOLE SODIUM 40 MG VIAL IV SCH ×2 (06:44→17:28)
[2019-08-01] MEDS: CEFEPIME 1 GM/D5W RTU 1 GM/50 ML RTUPB IV SCH ×2 (09:04→21:15)
--- NOTE | 2019-08-01 09:42 | Operative Report ---
Nonrecallable Operative Report DATE OF SURGERY: 08/01/19 PREOPERATIVE DIAGNOSIS: abdominal pain POSTOPERATIVE DIAGNOSIS: abdominal pain OPERATION: right internal jugular line placement SURGEON: ELIZABETH CONTI ANESTHESIA: Local TISSUE REMOVED OR ALTERED: none COMPLICATIONS: none ESTIMATED BLOOD LOSS: 10cc INTRAOPERATIVE FINDINGS: see note PROCEDURE: Right neck was prepped and draped in usual sterile fashion. After appropriate timeout site verification procedure commenced. Using 1% lidocaine plain a skin wheal was made over the right internal jugular vein. A the vein was then accessed with a 22-gauge finder needle. Then using a 16-gauge Intracath the vein was cannulated the needle was removed and a J-wire was placed into the vein through the catheter. A small skin garo was made with 11 blade and then the dilator was used over the wire it was removed and the triple-lumen catheter was placed over the wire and the wire removed. The catheter flushed and withdrew easily was then fixed to the skin with 2-0 silk a chest x-ray is pending. Patient tolerated the procedure well
--- NOTE | 2019-08-01 10:18 | PDOC PROGRESS REPORT ---
Subjective Progress Note for:: 08/01/19 Subjective:: Patient is currently doing fair Patient with no hemoptysis since yesterday after starting the antibiotic Patient CT of the chest without contrast a small left-sided pleural effusion with a pleural wall thickening Patient CT abdomen pelvis did not suggest anything unusable except some pseudoaneurysm Discussed with the surgeons suggest no need for any emergent endoscopy Reason For Visit: HEMATEMESIS,WEIGHT LOSS,SICKLE CELL DISEASE Physical Exam Vital Signs: Temp Pulse Resp BP Pulse Ox 98.0 F 63 16 145/87 H 98 08/01/19 08:06 08/01/19 08:06 08/01/19 08:06 08/01/19 08:06 08/01/19 08:06 Intake & Output 07/31/19 08/01/19 08/02/19 06:59 06:59 06:59 Intake Total 1550 1310 Output Total 250 2625 Balance 1300 -1315 Weight 72.2 kg 74.4 kg General appearance: PRESENT: no acute distress, well-developed, well-nourished Head exam: PRESENT: atraumatic, normocephalic Eye exam: PRESENT: conjunctiva pink, EOMI, PERRLA. ABSENT: scleral icterus Ear exam: PRESENT: normal external ear exam Mouth exam: PRESENT: moist, tongue midline Neck exam: PRESENT: full ROM. ABSENT: carotid bruit, JVD, lymphadenopathy, thyromegaly Respiratory exam: PRESENT: clear to auscultation tien Cardiovascular exam: PRESENT: RRR. ABSENT: diastolic murmur, rubs, systolic murmur Pulses: PRESENT: normal dorsalis pedis pul, +2 pedal pulses bilateral Vascular exam: PRESENT: normal capillary refill GI/Abdominal exam: PRESENT: normal bowel sounds, soft. ABSENT: distended, guarding, mass, organolmegaly, rebound, tenderness Rectal exam: PRESENT: deferred Neurological exam: PRESENT: alert, awake, oriented to person, oriented to place, oriented to time, oriented to situation, CN II-XII grossly intact. ABSENT: motor sensory deficit Psychiatric exam: PRESENT: appropriate affect, normal mood. ABSENT: homicidal ideation, suicidal ideation Skin exam: PRESENT: dry, intact, warm. ABSENT: cyanosis, rash Results Laboratory Results: 08/01/19 04:46 07/31/19 05:06 06/21/20 04:46 WBC 12.8 H RBC 4.15 Hgb 10.0 L Hct 29.1 L MCV 70 L MCH 24.2 L MCHC 34.5 RDW 19.7 H Plt Count 483 H Seg Neutrophils % Not Reportable Impressions: Chest X-Ray 07/30/19 14:48 IMPRESSION: Cardiomegaly without pulmonary edema. Possible small left pleural effusion. Left lower lobe airspace disease, pneumonia versus atelectasis. Abdomen/Pelvis CT 07/31/19 00:00 IMPRESSION: Small left-sided pleural effusion in an area of previous pleural thickening is a nonspecific finding. Infectious and neoplastic processes are in the differential. No evidence of acute intra-abdominal infectious/inflammatory process. Somewhat abnormal appearance of the right kidney is incompletely characterized in the absence of intravenous contrast material. A 2.0 x 2.0 x 3.0 cm retroperitoneal structure may represent a prominent lymph node ; no additional retroperitoneal findings are demonstrated on this limited exam. 5.0 x 5.9 x 5.9 cm cystic lesion in the left inguinal region is likewise poorly characterized; in the setting of previous instrumentation, this may represent a pseudoaneurysm. Sonographic evaluation may be helpful in further characterization. Chest CT 07/31/19 00:00 IMPRESSION: Small left-sided pleural effusion in an area of previous pleural thickening is a nonspecific finding. Infectious and neoplastic processes are in the differential. No evidence of acute intra-abdominal infectious/inflammatory process. Somewhat abnormal appearance of the right kidney is incompletely characterized in the absence of intravenous contrast material. A 2.0 x 2.0 x 3.0 cm retroperitoneal structure may represent a prominent lymph node ; no additional retroperitoneal findings are demonstrated on this limited exam. 5.0 x 5.9 x 5.9 cm cystic lesion in the left inguinal region is likewise poorly characterized; in the setting of previous instrumentation, this may represent a pseudoaneurysm. Sonographic evaluation may be helpful in further characterization. Assessment & Plan - Diagnosis (1) Hemoptysis Is this a current diagnosis for this admission?: Yes Plan: Probably patient's denied some pulmonary evaluation as outpatients (2) Pneumonia Qualifiers: Lung location: unspecified part of lung Is this a current diagnosis for this admission?: Yes Plan: Continues the IV antibiotic (3) Weight loss Is this a current diagnosis for this admission?: Yes Plan: Patient is probably need endoscopy and colonoscopy due to the weight loss (4) CVA (cerebral vascular accident) Qualifiers: CVA mechanism: unspecified Qualified Code(s): I63.9 - Cerebral infarction, unspecified Is this a current diagnosis for this admission?: Yes (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
[2019-08-01] MEDS: CHOLECALCIFEROL (D3) 1,000 UNIT (25 MCG) TABLET PO SCH (10:31)
[2019-08-01] MEDS: ASCORBIC ACID 500 MG TABLET PO SCH (10:31)
[2019-08-01] MEDS: LEVETIRACETAM 500 MG TABLET PO SCH ×2 (10:32→21:16)
[2019-08-01] MEDS: ENALAPRIL MALEATE 5 MG TABLET PO SCH ×2 (10:32→21:15)
[2019-08-01] MEDS: METOPROLOL TARTRATE 50 MG TABLET PO SCH ×2 (10:32→21:16)
--- NOTE | 2019-08-01 11:31 | RADIOLOGY REPORT (SQ) ---
EXAM DESCRIPTION: SHOULDER LEFT 2 OR MORE VIEWS IMAGES COMPLETED DATE/TIME: 08/01/2019 11:13 am REASON FOR STUDY: sholder pain COMPARISON: None. NUMBER OF VIEWS: Three view. TECHNIQUE: Internal rotation, external rotation, and Y view images acquired of the left shoulder. LIMITATIONS: None. FINDINGS: MINERALIZATION: Severe osteopenia BONES: No acute fracture. No worrisome bone lesions. No significant osteophytes. GLENOHUMERAL JOINT: Glenohumeral degenerative changes. ACROMIOCLAVICULAR JOINT: No large osteophytes. SOFT TISSUES: No calcifications. VISUALIZED RIBS, SPINE, AND LUNG: No other significant finding. OTHER: No other significant finding. IMPRESSION: Osteopenia. Glenohumeral degenerative changes. TECHNICAL DOCUMENTATION: JOB ID: [id number] 2010 [employer]- All Rights Reserved Reading location - IP/workstation name: [email or web address]
--- NOTE | 2019-08-01 15:18 | EKG REPORT ---
SEVERITY:- ABNORMAL ECG - SINUS RHYTHM LEFT VENTRICULAR HYPERTROPHY ABNORMAL T, CONSIDER ISCHEMIA, INFERIOR LEADS : Confirmed by: Jorge Thomas MD 01-Aug-2019 15:18:16
[2019-08-02 05:33] LABS: HEMOGLOBIN 10.6 g/dL (12.0-15.5); MEAN CORPUSCULAR HEMOGLOBIN 24.1 pg (27.0-33.4); MEAN CORPUSCULAR HGB CONC 34.1 g/dL (32.0-36.0); MEAN CORPUSCULAR VOLUME 71 fl (80-97); PLATELET COUNT 513 10^3/uL (150-450); RED BLOOD COUNT 4.39 10^6/uL (3.72-5.28); RED CELL DISTRIBUTION WIDTH 19.4 % (11.5-14.0); WHITE BLOOD COUNT 12.5 10^3/uL (4.0-10.5)
[2019-08-02 06:03] LABS: ABSOLUTE LYMPHOCYTES# (MANUAL) 2.9 10^3/uL (0.5-4.7); ABSOLUTE MONOCYTES # (MANUAL) 1.9 10^3/uL (0.1-1.4); BASOPHILS % (MANUAL) 2 % (0-2); EOSINOPHILS % (MANUAL) 4 % (0-6); LYMPHOCYTES % (MANUAL) 22 % (13-45); MONOCYTES % (MANUAL) 15 % (3-13); SEGMENTED NEUTROPHILS % (MAN) 56 % (42-78); TOTAL CELLS COUNTED 100
[2019-08-02 06:05] LABS: ANISOCYTOSIS 2+; PLATELET COMMENT INCREASED; POIKILOCYTOSIS 3+; TARGET CELLS 3+
[2019-08-02] MEDS: PANTOPRAZOLE SODIUM 40 MG VIAL IV SCH ×2 (06:54→17:38)
[2019-08-02] MEDS: HYDROCODONE/ACETAMINOPHEN 10-325 MG TABLET PO PRN ×3 (06:55→21:04)
--- NOTE | 2019-08-02 09:28 | CDI QUERY ---
CDI Query CDI Review: Dear Provider, Please clarify, confirm or rule out the following: *Conflicting documentation Progress notes state HEMATEMESIS, then states HEMOPTYSIS. Does pt have both? *CVA documented, is this current? *PNEUMONIA- possible ASPIRATION PNEUMONIA? OTHER? N/A? Thanks, Delia Avila [phone]
[2019-08-02] MEDS: LEVETIRACETAM 500 MG TABLET PO SCH ×2 (10:07→21:03)
[2019-08-02] MEDS: CEFEPIME 1 GM/D5W RTU 1 GM/50 ML RTUPB IV SCH ×2 (10:07→21:03)
[2019-08-02] MEDS: METOPROLOL TARTRATE 50 MG TABLET PO SCH ×2 (10:07→21:03)
[2019-08-02] MEDS: ASCORBIC ACID 500 MG TABLET PO SCH (10:07)
[2019-08-02] MEDS: CHOLECALCIFEROL (D3) 1,000 UNIT (25 MCG) TABLET PO SCH (10:07)
[2019-08-02] MEDS: ENALAPRIL MALEATE 5 MG TABLET PO SCH ×2 (10:09→21:04)
--- NOTE | 2019-08-02 22:29 | PDOC PROGRESS REPORT ---
Subjective Progress Note for:: 08/02/19 Subjective:: I admitted patient on Friday for evaluation of hematemesis and weight loss, over the weekend CT chest, abdomen and pelvis without contrast, it showed small left- sided pleural effusion, also found was compressive atelectasis of the adjacent left lower lobe, she has pseudoaneurysm of the left femoral artery. She is presently on IV antibiotic for presumed pneumonia. When I saw her today she seemed to express that she has hemoptysis, she said is scanty. The CT chest did not convincingly show pneumonia Reason For Visit: HEMATEMESIS,WEIGHT LOSS,SICKLE CELL DISEASE Physical Exam Vital Signs: Temp Pulse Resp BP Pulse Ox 98.2 F 55 L 20 181/86 H 100 08/02/19 19:20 08/02/19 21:04 08/02/19 19:20 08/02/19 21:04 08/02/19 19:20 Intake & Output 08/01/19 08/02/19 08/03/19 06:59 06:59 06:59 Intake Total 2310 1761 770 Output Total 2624 3525 1750 Balance -315 -1764 -980 Weight 74.4 kg 74.3 kg General appearance: PRESENT: no acute distress Eye exam: PRESENT: PERRLA Respiratory exam: PRESENT: clear to auscultation tien Cardiovascular exam: PRESENT: +S1, +S2 GI/Abdominal exam: PRESENT: soft Neurological exam: PRESENT: alert Results Laboratory Results: 08/02/19 04:44 07/31/19 05:06 08/02/19 04:44 WBC 12.5 H RBC 4.39 Hgb 10.6 L Hct 31.0 L MCV 71 L MCH 24.1 L MCHC 34.1 RDW 19.4 H Plt Count 513 H Seg Neutrophils % Not Reportable 07/31/19 05:50 Clean Catch Midstream Urine Culture - Final Mixed Urogenital Janet Impressions: Chest X-Ray 07/30/19 14:48 IMPRESSION: Cardiomegaly without pulmonary edema. Possible small left pleural effusion. Left lower lobe airspace disease, pneumonia versus atelectasis. Abdomen/Pelvis CT 07/31/19 00:00 IMPRESSION: Small left-sided pleural effusion in an area of previous pleural thickening is a nonspecific finding. Infectious and neoplastic processes are in the differential. No evidence of acute intra-abdominal infectious/inflammatory process. Somewhat abnormal appearance of the right kidney is incompletely characterized in the absence of intravenous contrast material. A 2.0 x 2.0 x 3.0 cm retroperitoneal structure may represent a prominent lymph node ; no additional retroperitoneal findings are demonstrated on this limited exam. 5.0 x 5.9 x 5.9 cm cystic lesion in the left inguinal region is likewise poorly characterized; in the setting of previous instrumentation, this may represent a pseudoaneurysm. Sonographic evaluation may be helpful in further characterization. Chest CT 07/31/19 00:00 IMPRESSION: Small left-sided pleural effusion in an area of previous pleural thickening is a nonspecific finding. Infectious and neoplastic processes are in the differential. No evidence of acute intra-abdominal infectious/inflammatory process. Somewhat abnormal appearance of the right kidney is incompletely characterized in the absence of intravenous contrast material. A 2.0 x 2.0 x 3.0 cm retroperitoneal structure may represent a prominent lymph node ; no additional retroperitoneal findings are demonstrated on this limited exam. 5.0 x 5.9 x 5.9 cm cystic lesion in the left inguinal region is likewise poorly characterized; in the setting of previous instrumentation, this may represent a pseudoaneurysm. Sonographic evaluation may be helpful in further characterization. Shoulder X-Ray 08/01/19 00:00 IMPRESSION: Osteopenia. Glenohumeral degenerative changes. Assessment & Plan - Diagnosis (1) Hematemesis Qualifiers: Nausea presence: with nausea Qualified Code(s): K92.0 - Hematemesis Is this a current diagnosis for this admission?: Yes Plan: Patient may be confused she is alternating hematemesis and hemoptysis, I will consult pulmonary for evaluation of hemoptysis (2) Weight loss Is this a current diagnosis for this admission?: Yes (3) Sickle cell disease Qualifiers: Sickle-cell associated disorders: without crisis Qualified Code(s): D57.1 - Sickle-cell disease without crisis Is this a current diagnosis for this admission?: Yes - Time Time Spent with patient: 35 or more minutes Level of Care: [facility]
[2019-08-02] MEDS: ATORVASTATIN CALCIUM 80 MG TABLET PO SCH (22:45)
[2019-08-02 22:58] LABS: INTERNATIONAL RATION (INR) 1.03; PROTHROMBIN TIME 13.5 SEC (11.4-15.4)
[2019-08-02 22:59] LABS: PARTIAL THROMBOPLASTIN TIME 29.9 SEC (23.5-35.8)
[2019-08-03] MEDS: HYDROCODONE/ACETAMINOPHEN 10-325 MG TABLET PO PRN ×4 (03:29→21:28)
[2019-08-03] MEDS: ENALAPRIL MALEATE 5 MG TABLET PO SCH ×2 (10:01→21:23)
[2019-08-03] MEDS: CEFEPIME 1 GM/D5W RTU 1 GM/50 ML RTUPB IV SCH ×2 (10:01→21:24)
[2019-08-03] MEDS: METOPROLOL TARTRATE 50 MG TABLET PO SCH ×2 (10:02→21:21)
[2019-08-03] MEDS: CHOLECALCIFEROL (D3) 1,000 UNIT (25 MCG) TABLET PO SCH (10:02)
[2019-08-03] MEDS: ASCORBIC ACID 500 MG TABLET PO SCH (10:02)
[2019-08-03] MEDS: LEVETIRACETAM 500 MG TABLET PO SCH ×2 (10:02→21:23)
[2019-08-03 13:50] LABS: A TYPE INFLUENZA AG NEGATIVE (NEGATIVE); B INFLUENZA AG NEGATIVE (NEGATIVE)
--- NOTE | 2019-08-03 15:03 | PDOC CONSULTATION ---
Consultation Consult Date: 08/03/19 Provider Consulted: SURGICAL SURGICALIST Consult reason:: questionable hematemesis vs hemoptysis History of Present Illness Admission Date/PCP: 07/30/19 16:14 ZULY MORALEZ MD Patient complains of: coughing up blood History of Present Illness: JAI MCKINLEY is a 64 year old female seen in consultation at the request of Dr. Moralez. The patient reports both hemoptysis and hematemesis. She denies abdominal pain, fevers, chills, melena, hematochezia, diarrhea, dizziness, orthostasis, chest pain. Upon questioning, the patient describes coughing up blood. She denies any nausea or johanna vomiting. She reports that she "spits up blood" after a coughing spell. She has a history of reflux and has had an EGD by Dr. Falcon in the past. Her home medications include omeprazole, which she reports taking faithfully. She denies tobacco or alcohol use. She denies excessive caffeine use. She denies NSAID or steroid use. Past Medical History Cardiac Medical History: Reports: Hypertension Denies: Myocardial Infarction Pulmonary Medical History: Denies: Asthma Neurological Medical History: Denies: Seizures Endocrine Medical History: Reports: Diabetes Mellitus Type 2 GI Medical History: Reports: Gastroesophageal Reflux Disease Denies: Hepatitis, Hiatal Hernia Psychiatric Medical History: Denies: Depression Hematology: Reports: Anemia, Sickle Cell Disease Past Surgical History Past Surgical History: Reports: Appendectomy, Cholecystectomy, Hysterectomy, Orthopedic Surgery - left hip replacement Denies: Mastectomy, Pacemaker Social History Smoking Status: Never Smoker Electronic Cigarette use?: No Frequency of Alcohol Use: None Hx Recreational Drug Use: No Drugs: None Hx Prescription Drug Abuse: No Family History Family History: Reviewed & Not Pertinent Parental Family History Reviewed: Yes Children Family History Reviewed: Yes Sibling(s) Family History Reviewed.: Yes Medication/Allergy Home Medications: Atorvastatin Calcium [Lipitor 80 mg Tablet] 80 mg PO QHS 09/28/18 Clopidogrel Bisulfate [Plavix 75 mg Tablet] 75 mg PO DAILY 09/28/18 Enalapril Maleate [Vasotec 5 mg Tablet] 5 mg PO Q12 09/28/18 Folic Acid [Folvite 1 mg Tablet] 1 mg PO DAILY 09/28/18 Metoprolol Tartrate [Lopressor 50 mg Tablet] 50 mg PO Q12 09/28/18 Omeprazole 20 mg PO DAILY 09/28/18 Ascorbic Acid [Vitamin C 500 mg Tablet] 500 mg PO DAILY 07/30/19 Cholecalciferol (Vitamin D3) [Vitamin D3 1000 Unit Tablet] 1,000 unit PO DAILY 07/30/19 Hydrocodone/Acetaminophen [Anthony 10-325 Tablet] 1 each PO Q6HP PRN 07/30/19 Levetiracetam [Keppra 500 mg Tablet] 1,000 mg PO Q12 07/30/19 Allergies/Adverse Reactions: meperidine HCl [From Demerol] Allergy (Intermediate, Verified 07/30/19 14:47) facial swelling, throat swelling iodine [Iodine] Allergy (Verified 07/30/19 14:47) RASH Review of Systems Constitutional: ABSENT: anorexia, chills, fatigue, fever(s), headache(s) Eyes: ABSENT: visual disturbances Ears: ABSENT: hearing changes Nose, Mouth, and Throat: ABSENT: sore throat Cardiovascular: ABSENT: chest pain, palpitations Respiratory: PRESENT: cough, hemoptysis Gastrointestinal: ABSENT: abdominal pain, bloating, constipation, diarrhea, dysphagia, heartburn, hematemesis, hematochezia, melena, nausea, vomiting Genitourinary: ABSENT: dysuria Musculoskeletal: ABSENT: back pain Integumentary: ABSENT: pruritus, rash Neurological: ABSENT: confusion, dizziness, weakness Psychiatric: ABSENT: anxiety, depression Endocrine: ABSENT: cold intolerance, heat intolerance Hematologic/Lymphatic: ABSENT: easy bleeding, easy bruising Physical Exam Vital Signs: Temp Pulse Resp BP Pulse Ox 97.8 F 103 H 16 152/82 H 96 08/03/19 08:01 08/03/19 08:01 08/03/19 08:01 08/03/19 08:01 08/03/19 08:01 Intake & Output 08/02/19 08/03/19 08/04/19 06:59 06:59 06:59 Intake Total 1762 820 Output Total 5816 1050 Balance -1764 -7220 Weight 74.3 kg 74.8 kg General appearance: PRESENT: no acute distress, cooperative Head exam: PRESENT: atraumatic, normocephalic Eye exam: PRESENT: EOMI, PERRLA. ABSENT: scleral icterus Mouth exam: PRESENT: moist, neck supple Neck exam: ABSENT: meningismus, tenderness, thyromegaly, tracheal deviation Respiratory exam: PRESENT: unlabored. ABSENT: tachypnea, wheezes Cardiovascular exam: ABSENT: tachycardia Pulses: PRESENT: normal radial pulses Vascular exam: PRESENT: normal capillary refill. ABSENT: pallor GI/Abdominal exam: PRESENT: soft. ABSENT: firm, guarding, hernia, tenderness Rectal exam: PRESENT: deferred Extremities exam: ABSENT: clubbing Musculoskeletal exam: ABSENT: deformity Neurological exam: PRESENT: alert, awake, oriented to person, oriented to place, oriented to time, oriented to situation, CN II-XII grossly intact. ABSENT: motor sensory deficit Psychiatric exam: ABSENT: agitated, anxious, depressed Focused psych exam: ABSENT: delusional Skin exam: ABSENT: cyanosis, erythema, jaundice Results Laboratory Results: 08/02/19 04:44 07/31/19 05:06 07/31/19 05:50 Clean Catch Midstream Urine Culture - Final Mixed Urogenital Janet Impressions: Chest X-Ray 07/30/19 14:48 IMPRESSION: Cardiomegaly without pulmonary edema. Possible small left pleural effusion. Left lower lobe airspace disease, pneumonia versus atelectasis. Abdomen/Pelvis CT 07/31/19 00:00 IMPRESSION: Small left-sided pleural effusion in an area of previous pleural thickening is a nonspecific finding. Infectious and neoplastic processes are in the differential. No evidence of acute intra-abdominal infectious/inflammatory process. Somewhat abnormal appearance of the right kidney is incompletely characterized in the absence of intravenous contrast material. A 2.0 x 2.0 x 3.0 cm retroperitoneal structure may represent a prominent lymph node ; no additional retroperitoneal findings are demonstrated on this limited exam. 5.0 x 5.9 x 5.9 cm cystic lesion in the left inguinal region is likewise poorly characterized; in the setting of previous instrumentation, this may represent a pseudoaneurysm. Sonographic evaluation may be helpful in further characterization. Chest CT 07/31/19 00:00 IMPRESSION: Small left-sided pleural effusion in an area of previous pleural thickening is a nonspecific finding. Infectious and neoplastic processes are in the differential. No evidence of acute intra-abdominal infectious/inflammatory process. Somewhat abnormal appearance of the right kidney is incompletely characterized in the absence of intravenous contrast material. A 2.0 x 2.0 x 3.0 cm retroperitoneal structure may represent a prominent lymph node ; no additional retroperitoneal findings are demonstrated on this limited exam. 5.0 x 5.9 x 5.9 cm cystic lesion in the left inguinal region is likewise poorly characterized; in the setting of previous instrumentation, this may represent a pseudoaneurysm. Sonographic evaluation may be helpful in further dilcia racterization. Shoulder X-Ray 08/01/19 00:00 IMPRESSION: Osteopenia. Glenohumeral degenerative changes. Assessment & Plan - Diagnosis (1) Hemoptysis Is this a current diagnosis for this admission?: Yes - Plan Summary Plan Summary: This is a 64-year-old female who complains of hemoptysis. Surgery has been consulted to evaluate for any hematemesis. After a long discussion, the patient is now certain that she does not have any nausea, vomiting, or hematemesis. The patient was seen by Dr. Falcon in the past, and has had an EGD previously. She reports that she was diagnosed with reflux at that time, and was prescribed omeprazole. She takes her omeprazole faithfully. She does not have any significant risk factors for peptic ulcer disease. I have discussed the possibility of the EGD while she is admitted to the hospital. The patient has requested to discuss her hemoptysis with pulmonology prior to consenting for EGD. This is reasonable. Surgery is available, if the patient decides that EGD would be beneficial for her. Please renotify us, so that we may continue to provide care for this patient. Surgery will see her again on an as-needed basis.
--- NOTE | 2019-08-03 20:39 | PDOC PROGRESS REPORT ---
Subjective Progress Note for:: 08/03/19 Subjective:: Patient seems to have hemoptysis, will order CT chest with contrast Reason For Visit: HEMATEMESIS,WEIGHT LOSS,SICKLE CELL DISEASE Physical Exam Vital Signs: Temp Pulse Resp BP Pulse Ox 97.8 F 52 L 18 155/72 H 99 08/03/19 16:23 08/03/19 16:23 08/03/19 16:23 08/03/19 16:23 08/03/19 16:23 Intake & Output 08/02/19 08/03/19 08/04/19 06:59 06:59 06:59 Intake Total 5002 689 5302 Output Total 3525 3150 1700 Balance -8290 -0747 -028 Weight 74.3 kg 74.8 kg General appearance: PRESENT: no acute distress Eye exam: PRESENT: PERRLA Respiratory exam: PRESENT: clear to auscultation tien Cardiovascular exam: PRESENT: +S1, +S2 GI/Abdominal exam: PRESENT: soft Neurological exam: PRESENT: alert Results Laboratory Results: 08/02/19 04:44 07/31/19 05:06 Impressions: Chest X-Ray 07/30/19 14:48 IMPRESSION: Cardiomegaly without pulmonary edema. Possible small left pleural effusion. Left lower lobe airspace disease, pneumonia versus atelectasis. Abdomen/Pelvis CT 07/31/19 00:00 IMPRESSION: Small left-sided pleural effusion in an area of previous pleural thickening is a nonspecific finding. Infectious and neoplastic processes are in the differential. No evidence of acute intra-abdominal infectious/inflammatory process. Somewhat abnormal appearance of the right kidney is incompletely characterized in the absence of intravenous contrast material. A 2.0 x 2.0 x 3.0 cm retroperitoneal structure may represent a prominent lymph node ; no additional retroperitoneal findings are demonstrated on this limited exam. 5.0 x 5.9 x 5.9 cm cystic lesion in the left inguinal region is likewise poorly characterized; in the setting of previous instrumentation, this may represent a pseudoaneurysm. Sonographic evaluation may be helpful in further characterization. Chest CT 07/31/19 00:00 IMPRESSION: Small left-sided pleural effusion in an area of previous pleural thickening is a nonspecific finding. Infectious and neoplastic processes are in the differential. No evidence of acute intra-abdominal infectious/inflammatory process. Somewhat abnormal appearance of the right kidney is incompletely characterized in the absence of intravenous contrast material. A 2.0 x 2.0 x 3.0 cm retroperitoneal structure may represent a prominent lymph node ; no additional retroperitoneal findings are demonstrated on this limited exam. 5.0 x 5.9 x 5.9 cm cystic lesion in the left inguinal region is likewise poorly characterized; in the setting of previous instrumentation, this may represent a pseudoaneurysm. Sonographic evaluation may be helpful in further characterizati on. Shoulder X-Ray 08/01/19 00:00 IMPRESSION: Osteopenia. Glenohumeral degenerative changes. Assessment & Plan - Diagnosis (1) Hematemesis Qualifiers: Nausea presence: with nausea Qualified Code(s): K92.0 - Hematemesis Is this a current diagnosis for this admission?: Yes (2) Weight loss Is this a current diagnosis for this admission?: Yes (3) Sickle cell disease Qualifiers: Sickle-cell associated disorders: without crisis Qualified Code(s): D57.1 - Sickle-cell disease without crisis Is this a current diagnosis for this admission?: Yes - Time Time Spent with patient: 25-34 minutes
[2019-08-03] MEDS: ATORVASTATIN CALCIUM 80 MG TABLET PO SCH (21:21)
[2019-08-04] MEDS: HYDROCODONE/ACETAMINOPHEN 10-325 MG TABLET PO PRN ×2 (04:33→18:50)
[2019-08-04] MEDS ORDERED: DIPHENHYDRAMINE HCL 50 MG/ML VIAL IV ONE (09:30)
[2019-08-04] MEDS ORDERED: FAMOTIDINE INJ/PF 20 MG/2 ML SDV IV ONE (09:30)
[2019-08-04] MEDS ORDERED: METHYLPREDNISOLONE INJ 125 MG/2 ML SDV IV ONE (09:30)
[2019-08-04] MEDS: METOPROLOL TARTRATE 50 MG TABLET PO SCH ×2 (11:19→21:13)
[2019-08-04] MEDS: CEFEPIME 1 GM/D5W RTU 1 GM/50 ML RTUPB IV SCH ×2 (11:19→21:14)
[2019-08-04] MEDS: ASCORBIC ACID 500 MG TABLET PO SCH (11:19)
[2019-08-04] MEDS: LEVETIRACETAM 500 MG TABLET PO SCH ×2 (11:19→21:13)
[2019-08-04] MEDS: CHOLECALCIFEROL (D3) 1,000 UNIT (25 MCG) TABLET PO SCH (11:19)
--- NOTE | 2019-08-04 11:21 | RADIOLOGY REPORT (SQ) ---
EXAM DESCRIPTION: CT CHEST WITH IMAGES COMPLETED DATE/TIME: 08/04/2019 9:49 am REASON FOR STUDY: hemoptysis COMPARISON: 07/31/2019. 03/25/2014. TECHNIQUE: CT scan of the chest performed using helical scanning technique with dynamic intravenous contrast injection. Images reviewed with lung, soft tissue and bone windows. Reconstructed coronal and sagittal MPR and MIP images reviewed. All images stored on PACS. All CT scanners at this facility use dose modulation, iterative reconstruction, and/or weight based d osing when appropriate to reduce radiation dose to as low as reasonably achievable (ALARA). [facility]: Dose Right [facility]: CareDose [facility]: Dose Right [facility]: Teradose 4D [facility]: MobileAds CONTRAST TYPE AND DOSE: 80 mL Omnipaque 350. The patient was pre-medicated for contrast allergy. RENAL FUNCTION: GFR > 60. RADIATION DOSE: CT Rad equipment meets quality standard of care and radiation dose reduction techniq ues were employed. CTDIvol: 8.7 mGy. DLP: 272 mGy-cm. . LIMITATIONS: None. FINDINGS: LUNGS AND PLEURA: The trachea has normal caliber and appearance. There is abrupt cut off of the left lower lobe bronchials secondary to a mass in the left lower lobe measuring at least 6.3 b y 6.1 cm. Probable associated postobstructive atelectasis and small left pleural effusion/ pleural t hickening. The right lung is clear. Small right pleural effusion. No pneumothorax. HILAR AND MEDIASTINAL STRUCTURES: There is left hilar adenopathy with a left hilar lymph node measuri ng 1.1 x 1 cm. No mediastinal or right hilar adenopathy. No supraclavicular adenopathy. No mediast inal mass or fluid. Esophagus is unremarkable. HEART AND VASCULAR STRUCTURES: Moderate cardiomegaly. Small pericardial effusion/ pericardial thicke sarahy. Coronary artery vascular calcifications. Aorta has normal caliber and appearance. Pulmonary arteries are unremarkable. HARDWARE: None in the chest. UPPER ABDOMEN: Exophytic right renal cortical cysts. Densely calcified spleen unchanged. THYROID AND OTHER SOFT TISSUES: No masses. No adenopathy. BONES: No significant finding. OTHER: No other significant finding. IMPRESSION: 1. Left lower lobe pulmonary mass suspicious for malignancy. This would be amenable to percutaneous biopsy. 2. Small left pleural effusion. 3. Small left hilar lymph node suspicious for local metastasis. PET CT may provide additional inform ation. 4. Moderate cardiomegaly with small pericardial effusion/pericardial thickening. TECHNICAL DOCUMENTATION: JOB ID: [id number] Quality ID # [id number]: Final reports with documentation of one or more dose reduction techniques (e.g., Au tomated exposure control, adjustment of the mA and/or kV according to patient size, use of iterative reconstruction technique) 2010 [employer]- All Rights Reserved Reading location - IP/workstation name: [email or web address]
[2019-08-04] MEDS: ENALAPRIL MALEATE 5 MG TABLET PO SCH ×2 (11:22→21:12)
--- NOTE | 2019-08-04 14:37 | PDOC PROGRESS REPORT ---
Subjective Progress Note for:: 08/04/19 Subjective:: Patient complains of hemoptysis, CT chest with contrast was obtained after she was premedicated because she has a history of iodine allergy. The CT chest demonstrated abrupt cutoff of the left lower lobe secondary to a mass in the left lower lobe that measure at least 6.3 x 6 point centimeters there is probable associated postobstructive atelectasis and small left pleural effusion right lung is clear there is a left hilar adenopathy with a left lymph node measuring 1.1 x 1 cm, this is most likely a neoplasm, she has a remote history of tobacco use. We will request CT-guided needle biopsy of the mass Reason For Visit: HEMATEMESIS,WEIGHT LOSS,SICKLE CELL DISEASE Physical Exam Vital Signs: Temp Pulse Resp BP Pulse Ox 98.1 F 57 L 16 156/83 H 98 08/04/19 11:19 08/04/19 14:00 08/04/19 11:19 08/04/19 11:19 08/04/19 11:19 Intake & Output 08/03/19 08/04/19 08/05/19 06:59 06:59 06:59 Intake Total 820 2170 510 Output Total 3150 3000 600 Balance -2330 -830 -90 Weight 74.8 kg 74.6 kg General appearance: PRESENT: no acute distress Eye exam: PRESENT: PERRLA Respiratory exam: PRESENT: clear to auscultation tien Cardiovascular exam: PRESENT: +S1, +S2 GI/Abdominal exam: PRESENT: soft Neurological exam: PRESENT: alert Results Laboratory Results: 08/02/19 04:44 07/31/19 05:06 Impressions: Chest X-Ray 07/30/19 14:48 IMPRESSION: Cardiomegaly without pulmonary edema. Possible small left pleural effusion. Left lower lobe airspace disease, pneumonia versus atelectasis. Abdomen/Pelvis CT 07/31/19 00:00 IMPRESSION: Small left-sided pleural effusion in an area of previous pleural thickening is a nonspecific finding. Infectious and neoplastic processes are in the differential. No evidence of acute intra-abdominal infectious/inflammatory process. Somewhat abnormal appearance of the right kidney is incompletely characterized in the absence of intravenous contrast material. A 2.0 x 2.0 x 3.0 cm retroperitoneal structure may represent a prominent lymph node ; no additional retroperitoneal findings are demonstrated on this limited exam. 5.0 x 5.9 x 5.9 cm cystic lesion in the left inguinal region is likewise poorly characterized; in the setting of previous instrumentation, this may represent a pseudoaneurysm. Sonographic evaluation may be helpful in further characterization. Shoulder X-Ray 08/01/19 00:00 IMPRESSION: Osteopenia. Glenohumeral degenerative changes. Chest CT 08/04/19 08:00 IMPRESSION: 1. Left lower lobe pulmonary mass suspicious for malignancy. This would be amenable to percutaneous biopsy. 2. Small left pleural effusion. 3. Small left hilar lymph node suspicious for local metastasis. PET CT may provide additional information. 4. Moderate cardiomegaly with small pericardial effusion/pericardial thickening. Assessment & Plan - Diagnosis (1) Hematemesis Qualifiers: Nausea presence: with nausea Qualified Code(s): K92.0 - Hematemesis Is this a current diagnosis for this admission?: Yes (2) Weight loss Is this a current diagnosis for this admission?: Yes (3) Sickle cell disease Qualifiers: Sickle-cell associated disorders: without crisis Qualified Code(s): D57.1 - Sickle-cell disease without crisis Is this a current diagnosis for this admission?: Yes (4) Hemoptysis Is this a current diagnosis for this admission?: Yes Plan: There is a mass in the left lower lobe most likely a neoplasm probably cancer she has lost weight, CT-guided needle biopsy of the mass to be obtained this will be done by interventional radiologist (5) Malignant neoplasm of lower lobe of left lung Is this a current diagnosis for this admission?: Yes Plan: This probably stage III at least, lung cancer, CT-guided needle biopsy ordered - Time Time Spent with patient: 25-34 minutes Level of Care: IMCU Medications reviewed and adjusted accordingly: Yes
--- NOTE | 2019-08-04 15:10 | PDOC CONSULTATION ---
Consultation Consult Date: 08/04/19 Attending physician:: ZULY MORALEZ Provider Consulted: ANDI DICK Consult reason:: Hemoptysis History of Present Illness Admission Date/PCP: 07/30/19 16:14 ZULY MORALEZ MD History of Present Illness: JAI MCKINLEY is a 64 year old female complains of a cough productive of streaky blood for the last 3 weeks became progressively worse and she presented to the hospital where she was admitted for hemoptysis she was not initially clear when she was throwing up blood or coughing up blood but eventually became more more evident that she was having hemoptysis rather than hematemesis usually it was blood-streaked sputum but occasionally they were clots. She has some increasing shortness of breath she had a negative PPD 5 years ago. She denies any history chronic lung disease as a child or adolescent. She admits to passive smoke as a child as well as an adult she has smoked self smoked 2 packs a day for approximately 45 years. She denies any significant occupational exposure to potential respiratory toxins she has 1 pet cat she denies any recent travel she denies angina-like chest pain sleeps on 2 pillows no PND no nocturnal cough rare edema she is admits to snoring but she denies restless sleep unrestful sleep or excessive daytime somnolence. Past Medical History Cardiac Medical History: Reports: Hypertension Denies: Myocardial Infarction Pulmonary Medical History: Denies: Asthma Neurological Medical History: Denies: Seizures Endocrine Medical History: Reports: Diabetes Mellitus Type 2 GI Medical History: Reports: Gastroesophageal Reflux Disease Denies: Hepatitis, Hiatal Hernia Psychiatric Medical History: Denies: Depression Hematology: Reports: Anemia, Sickle Cell Disease Past Surgical History Past Surgical History: Reports: Appendectomy, Cholecystectomy, Hysterectomy, Orthopedic Surgery - left hip replacement Denies: Mastectomy, Pacemaker Social History Information Source: Patient, [facility] Records Cigarettes Packs Per Day: 2 Number of Years Smokin Passive smoke exposure as: Both Frequency of Alcohol Use: None Hx Recreational Drug Use: No Drugs: None Hx Prescription Drug Abuse: No Do you have pets?: Yes Have you had any respiratory illnesses as a child?: No Have you been exposed to any sick contacts recently?: No Have you had any recent respiratory illnesses?: Yes Have you travelled outside of [place] in the past 12 months?: No Family History Family History: CVA, DM, Hypertension, Malignancy Parental Family History Reviewed: Yes Children Family History Reviewed: Yes Sibling(s) Family History Reviewed.: Yes Medication/Allergy Home Medications: Atorvastatin Calcium [Lipitor 80 mg Tablet] 80 mg PO QHS 09/28/18 Clopidogrel Bisulfate [Plavix 75 mg Tablet] 75 mg PO DAILY 09/28/18 Enalapril Maleate [Vasotec 5 mg Tablet] 5 mg PO Q12 09/28/18 Folic Acid [Folvite 1 mg Tablet] 1 mg PO DAILY 09/28/18 Metoprolol Tartrate [Lopressor 50 mg Tablet] 50 mg PO Q12 09/28/18 Omeprazole 20 mg PO DAILY 09/28/18 Ascorbic Acid [Vitamin C 500 mg Tablet] 500 mg PO DAILY 07/30/19 Cholecalciferol (Vitamin D3) [Vitamin D3 1000 Unit Tablet] 1,000 unit PO DAILY 07/30/19 Hydrocodone/Acetaminophen [[place] 10-325 Tablet] 1 each PO Q6HP PRN 07/30/19 Levetiracetam [Keppra 500 mg Tablet] 1,000 mg PO Q12 07/30/19 Allergies/Adverse Reactions: meperidine HCl [From Demerol] Allergy (Intermediate, Verified 07/30/19 14:47) facial swelling, throat swelling iodine [Iodine] Allergy (Verified 07/30/19 14:47) RASH Review of Systems All systems: reviewed and no additional remarkable complaints except as stated Physical Exam Vital Signs: Temp Pulse Resp BP Pulse Ox 97.9 F 89 16 131/68 H 96 08/04/19 07:43 08/04/19 07:43 08/04/19 07:43 08/04/19 07:43 08/04/19 07:43 Intake & Output 08/03/19 08/04/19 08/05/19 06:59 06:59 06:59 Intake Total 820 1660 Output Total 3150 2400 Balance -2330 -740 Weight 74.8 kg 74.6 kg General appearance: PRESENT: no acute distress, cooperative, disheveled, well- developed, well-nourished Head exam: PRESENT: atraumatic, normocephalic Eye exam: PRESENT: conjunctiva pale, EOMI. ABSENT: nystagmus, periorbital swelling Mouth exam: PRESENT: dry mucosa, neck supple, tongue midline Neck exam: ABSENT: carotid bruit, full ROM, JVD, lymphadenopathy, meningismus, tenderness, thyromegaly, tracheal deviation, tracheostomy, other Respiratory exam: PRESENT: decreased breath sounds, prolonged expiratory phas, rales, rhonchi, unlabored, wheezes. ABSENT: retraction, stridor, tachypnea Cardiovascular exam: PRESENT: RRR, +S1, +S2. ABSENT: tachycardia Pulses: PRESENT: normal radial pulses GI/Abdominal exam: PRESENT: soft. ABSENT: distended, guarding, mass, rebound, tenderness Extremities exam: ABSENT: calf tenderness, clubbing, joint swelling, tenderness Musculoskeletal exam: ABSENT: deformity, dislocation Neurological exam: PRESENT: awake Psychiatric exam: PRESENT: flat affect Skin exam: PRESENT: dry, warm Results Laboratory Results: 08/02/19 04:44 07/31/19 05:06 Impressions: Chest X-Ray 07/30/19 14:48 IMPRESSION: Cardiomegaly without pulmonary edema. Possible small left pleural effusion. Left lower lobe airspace disease, pneumonia versus atelectasis. Abdomen/Pelvis CT 07/31/19 00:00 IMPRESSION: Small left-sided pleural effusion in an area of previous pleural thickening is a nonspecific finding. Infectious and neoplastic processes are in the differential. No evidence of acute intra-abdominal infectious/inflammatory process. Somewhat abnormal appearance of the right kidney is incompletely characterized in the absence of intravenous contrast material. A 2.0 x 2.0 x 3.0 cm retroperitoneal structure may represent a prominent lymph node ; no additional retroperitoneal findings are demonstrated on this limited exam. 5.0 x 5.9 x 5.9 cm cystic lesion in the left inguinal region is likewise poorly characterized; in the setting of previous instrumentation, this may represent a pseudoaneurysm. Sonographic evaluation may be helpful in further characterization. Chest CT 07/31/19 00:00 IMPRESSION: Small left-sided pleural effusion in an area of previous pleural thickening is a nonspecific finding. Infectious and neoplastic processes are in the differential. No evidence of acute intra-abdominal infectious/inflammatory process. Somewhat abnormal appearance of the right kidney is incompletely characterized in the absence of intravenous contrast material. A 2.0 x 2.0 x 3.0 cm retroperitoneal structure may represent a prominent lymph node ; no additional retroperitoneal findings are demonstrated on this limited exam. 5.0 x 5.9 x 5.9 cm cystic lesion in the left inguinal region is likewise poorly characterized; in the setting of previous instrumentation, this may represent a pseudoaneurysm. Sonographic evaluation may be helpful in further characte rization. Shoulder X-Ray 08/01/19 00:00 IMPRESSION: Osteopenia. Glenohumeral degenerative changes. Assessment & Plan - Diagnosis (1) Hemoptysis Is this a current diagnosis for this admission?: Yes Plan: CT scan shows mass in the left lower lobe is amenable to CT-guided needle biopsy agree proceed with CT-guided needle biopsy (2) Hypertension Qualifiers: Hypertension type: essential hypertension Qualified Code(s): I10 - Essential (primary) hypertension Is this a current diagnosis for this admission?: Yes Plan: Stable at this time (3) Sickle cell disease Qualifiers: Sickle-cell associated disorders: without crisis Qualified Code(s): D57.1 - Sickle-cell disease without crisis Is this a current diagnosis for this admission?: Yes Plan: No evidence of acute crisis - Time Time Spent with patient: 55 min
[2019-08-04 16:28] LABS: HEMATOCRIT 35.9 % (36.0-47.0); MEAN CORPUSCULAR HGB CONC 33.5 g/dL (32.0-36.0); MEAN CORPUSCULAR VOLUME 72 fl (80-97); PLATELET COUNT 595 10^3/uL (150-450); RED BLOOD COUNT 5.02 10^6/uL (3.72-5.28); WHITE BLOOD COUNT 10.5 10^3/uL (4.0-10.5)
[2019-08-04 16:44] LABS: ABSOLUTE LYMPHOCYTES# (MANUAL) 0.9 10^3/uL (0.5-4.7); ABSOLUTE MONOCYTES # (MANUAL) 0.1 10^3/uL (0.1-1.4); BASOPHILS % (MANUAL) 0 % (0-2); EOSINOPHILS % (MANUAL) 0 % (0-6); LYMPHOCYTES % (MANUAL) 9 % (13-45); MONOCYTES % (MANUAL) 1 % (3-13); SEGMENTED NEUTROPHILS % (MAN) 90 % (42-78); TOTAL CELLS COUNTED 100
[2019-08-04 16:46] LABS: ANISOCYTOSIS 2+; HYPOCHROMASIA 1+; PLATELET COMMENT ADEQUATE; PLATELET GIANT PRESENT; POLYCHROMASIA SLIGHT; TARGET CELLS 1+
[2019-08-04 18:25] LABS: ALBUMIN 4.4 g/dL (3.5-5.0); ALKALINE PHOSPHATASE 83 U/L (38-126); ANION GAP 10 (5-19); ASPARTATE AMINO TRANSFERASE 50 U/L (14-36); BILIRUBIN,TOTAL 0.7 mg/dL (0.2-1.3); BLOOD UREA NITROGEN 19 mg/dL (7-20); CALCIUM 9.8 mg/dL (8.4-10.2); CARBON DIOXIDE 24 mmol/L (22-30); CHLORIDE 105 mmol/L (98-107); GLUCOSE 250 mg/dL (75-110); TOTAL PROTEIN 8.4 g/dL (6.3-8.2)
[2019-08-04] MEDS: MAGNESIUM HYDROXIDE SUSP 30 ML UDCUP PO PRN (18:50)
[2019-08-04] MEDS ORDERED: DEXTROSE 40% GEL 15 GM TUBE PO PRN ×2 (18:57)
[2019-08-04] MEDS ORDERED: GLUCAGON,HUMAN RECOMB 1 MG INJ SUBCUT PRN (18:57)
[2019-08-04] MEDS ORDERED: DEXTROSE 50%-WATER 25 GM/50 ML DISP.SYRIN IV PRN ×2 (18:57)
[2019-08-04] MEDS: ATORVASTATIN CALCIUM 80 MG TABLET PO SCH (21:12)
[2019-08-05] MEDS: HYDROCODONE/ACETAMINOPHEN 10-325 MG TABLET PO PRN ×4 (00:24→22:42)
[2019-08-05 07:42] LABS: HEMATOCRIT 32.2 % (36.0-47.0); HEMOGLOBIN 11.2 g/dL (12.0-15.5); MEAN CORPUSCULAR HEMOGLOBIN 24.4 pg (27.0-33.4); MEAN CORPUSCULAR HGB CONC 34.8 g/dL (32.0-36.0); MEAN CORPUSCULAR VOLUME 70 fl (80-97); PLATELET COUNT 579 10^3/uL (150-450); RED BLOOD COUNT 4.59 10^6/uL (3.72-5.28); RED CELL DISTRIBUTION WIDTH 19.4 % (11.5-14.0); WHITE BLOOD COUNT 20.3 10^3/uL (4.0-10.5)
[2019-08-05 07:52] LABS: ALBUMIN 4.1 g/dL (3.5-5.0); ALKALINE PHOSPHATASE 79 U/L (38-126); ANION GAP 10 (5-19); ASPARTATE AMINO TRANSFERASE 25 U/L (14-36); BILIRUBIN,TOTAL 0.8 mg/dL (0.2-1.3); BLOOD UREA NITROGEN 20 mg/dL (7-20); CALCIUM 10.1 mg/dL (8.4-10.2); CARBON DIOXIDE 26 mmol/L (22-30); CHLORIDE 104 mmol/L (98-107); GLUCOSE 90 mg/dL (75-110); POTASSIUM 4.4 mmol/L (3.6-5.0); TOTAL PROTEIN 7.6 g/dL (6.3-8.2)
[2019-08-05 08:04] LABS: INTERNATIONAL RATION (INR) 0.98
[2019-08-05 08:27] LABS: ABSOLUTE LYMPHOCYTES# (MANUAL) 3.7 10^3/uL (0.5-4.7); ABSOLUTE MONOCYTES # (MANUAL) 1.6 10^3/uL (0.1-1.4); BASOPHILS % (MANUAL) 0 % (0-2); EOSINOPHILS % (MANUAL) 0 % (0-6); LYMPHOCYTES % (MANUAL) 18 % (13-45); MONOCYTES % (MANUAL) 8 % (3-13); SEGMENTED NEUTROPHILS % (MAN) 74 % (42-78); TOTAL CELLS COUNTED 100
[2019-08-05 08:30] LABS: POLYCHROMASIA SLIGHT; TOXIC VACUOLATION PRESENT
[2019-08-05 08:31] LABS: ANISOCYTOSIS 2+; OVALOCYTES SLIGHT; PLATELET COMMENT INCREASED; POIKILOCYTOSIS SLIGHT; TARGET CELLS 2+; TEAR DROP CELLS SLIGHT
[2019-08-05] MEDS ORDERED: ENALAPRILAT DIHYDRATE INJ/PF 2.5 MG/2 ML SDV IV ONE ×2 (09:17→10:00)
[2019-08-05] MEDS: LEVETIRACETAM 500 MG TABLET PO SCH ×2 (09:37→21:10)
[2019-08-05] MEDS: METOPROLOL TARTRATE 50 MG TABLET PO SCH ×2 (09:37→21:10)
[2019-08-05] MEDS: CEFEPIME 1 GM/D5W RTU 1 GM/50 ML RTUPB IV SCH ×2 (09:45→21:11)
[2019-08-05] MEDS ORDERED: FENTANYL CITRATE INJ/PF 100 MCG/2 ML AMPUL ONE (10:48)
--- NOTE | 2019-08-05 11:33 | RADIOLOGY REPORT (SQ) ---
EXAM DESCRIPTION: CHEST SINGLE VIEW IMAGES COMPLETED DATE/TIME: 08/05/2019 11:24 am REASON FOR STUDY: POST LUNG BIOPSY COMPARISON: 08/05/2019 and 07/30/2019 EXAM PARAMETERS: NUMBER OF VIEWS: One view. TECHNIQUE: Single frontal radiographic view of the chest acquired. RADIATION DOSE: NA LIMITATIONS: None. FINDINGS: LUNGS AND PLEURA: Retrocardiac opacity persists. No new focal consolidation. Likely smal l amount of left extrapleural fluid. No appreciable pneumothorax. MEDIASTINUM AND HILAR STRUCTURES: No masses. Contour normal. HEART AND VASCULAR STRUCTURES: Heart normal in size. Normal vasculature. BONES: No acute findings. HARDWARE: None in the chest. OTHER: No other significant finding. IMPRESSION: Status post CT-guided lung biopsy without significant pneumothorax. TECHNICAL DOCUMENTATION: JOB ID: [id number] 2010 [employer]- All Rights Reserved Reading location - IP/workstation name: [email or web address]
[2019-08-05] MEDS: ASCORBIC ACID 500 MG TABLET PO SCH (11:53)
[2019-08-05] MEDS: CHOLECALCIFEROL (D3) 1,000 UNIT (25 MCG) TABLET PO SCH (11:53)
--- NOTE | 2019-08-05 11:58 | RADIOLOGY REPORT (SQ) ---
EXAM DESCRIPTION: CT BIOPSY LUNG/MEDIASTINUM IMAGES COMPLETED DATE/TIME: 08/05/2019 11:15 am REASON FOR STUDY: Left lower lobe mass COMPARISON: 08/04/2019 and 07/31/2019 TECHNIQUE: CT guided biopsy of the left lower lobe performed without conscious sedation. CT Fluoroscopy Time: Total DLP 389.17 mGy-cm All CT scanners at this facility use dose modulation, iterative reconstruction, and/or weight based d osing when appropriate to reduce radiation dose to as low as reasonably achievable (ALARA). [facility]: Dose Right [facility]: CareDose [facility]: Dose Right [facility]: Teradose 4D [facility]: Smart No Chains RADIATION DOSE: CT Rad equipment meets quality standard of care and radiation dose reduction techni ques were employed. CTDIvol: 6.6 - 15.3 mGy. DLP: 389 mGy-cm.mGy. FINDINGS: After obtaining informed consent and explaining the risks and benefits of conscious sedati on,the patient agreed to the procedure. Prior to the procedure, a time out was performed to verify th e patient's identity and planned procedure. IV pain control was administered and physician direction by the registered nurse using 50 micrograms of fentanyl. Physiologic monitoring was provided before, during, and after the procedure. Documentation face to face time, the performing proceduralist, spent monitoring the patient: [address] scanning was performed to localize the percutaneous site for the biopsy approach. After sterile skin prep and local lidocaine for skin and deep tissue anesthesia, a coaxial biopsy nee dle was used to obtain multiple cores of tissue. The biopsy tissue was submitted to the lab in forma angela. There were no immediate complications. Pathology is pending at the time of dictation. IMPRESSION: CT GUIDED BIOPSY OF THE LEFT LOWER LOBE MASS PERFORMED WITHOUT IMMEDIATE COMPLICATION. PATHOLOGY PENDING. COMMENT: Quality ID 145: Final reports for procedures using fluoroscopy that document radiation exp osure indices, or exposure time and number of fluorographic images (if radiation exposure indices are not available) Patient medication list reviewed: Yes- Quality ID# [id number]:Eligible professional attests to documenting i n the medical record they obtained, updated, or reviewed the patient's current medications.. TECHNICAL DOCUMENTATION: JOB ID: [id number] Quality ID# [id number]: Final reports with documentation of one or more dose reduction techniques (e.g., Aut omated exposure control, adjustment of the mA and/or kV according to patient size, use of iterative r econstruction technique) 2010 [employer]- All Rights Reserved Reading location - IP/workstation name: [email or web address]
[2019-08-05] MEDS ORDERED: ENALAPRILAT DIHYDRATE INJ/PF 2.5 MG/2 ML SDV IV SCH (12:00)
--- NOTE | 2019-08-05 14:04 | RADIOLOGY REPORT (SQ) ---
EXAM DESCRIPTION: CHEST SINGLE VIEW IMAGES COMPLETED DATE/TIME: 08/05/2019 1:38 pm REASON FOR STUDY: POST LUNG BIOPSY *2 HOUR FILM* COMPARISON: 08/05/2019 and 07/30/2019 EXAM PARAMETERS: NUMBER OF VIEWS: One view. TECHNIQUE: Single frontal radiographic view of the chest acquired. RADIATION DOSE: NA LIMITATIONS: None. FINDINGS: LUNGS AND PLEURA: Stable retrocardiac opacity. Stable left-sided pleural effusion. No pn eumothorax. MEDIASTINUM AND HILAR STRUCTURES: No masses. Contour normal. HEART AND VASCULAR STRUCTURES: Heart normal in size. Normal vasculature. BONES: No acute findings. HARDWARE: None in the chest. OTHER: No other significant finding. IMPRESSION: Status post CT-guided lung biopsy. No pneumothorax. TECHNICAL DOCUMENTATION: JOB ID: [id number] 2010 [employer]- All Rights Reserved Reading location - IP/workstation name: [email or web address]
--- NOTE | 2019-08-05 15:34 | RADIOLOGY REPORT (SQ) ---
EXAM DESCRIPTION: CT NEEDLE PLACEMENT IMAGES COMPLETED DATE/TIME: 08/05/2019 11:15 am REASON FOR STUDY: LUNG BIOPSY COMPARISON: None. FLUORO TIME: Total DLP 389.17 mGy-cm LIMITATIONS: None. PROCEDURE: After obtaining informed consent and explaining the risks and benefits of conscious nicholas tion,the patient agreed to the procedure. Prior to the procedure, a time out was performed to verify the patient's identity and planned procedure. IV pain control was administered and physician direction by the registered nurse using 50 micrograms of fentanyl. Physiologic monitoring was provided before, during, and after the procedure. Documentation face to face time, the performing proceduralist, spent monitoring the patient: [address] scanning was performed to localize the percutaneous site for the biopsy approach. After sterile skin prep and local lidocaine for skin and deep tissue anesthesia, a coaxial biopsy nee dle was used to obtain multiple cores of tissue. The biopsy tissue was submitted to the lab in forma angela. There were no immediate complications. Pathology is pending at the time of dictation. IMPRESSION: SUCCESSFUL CT GUIDED PERCUTANEOUS LUNG BIOPSY OF THE LEFT LOWER LOBE. COMMENT: Patient medication list reviewed: Yes- Quality ID# [id number]:Eligible professional attests to doc umenting in the medical record they obtained, updated, or reviewed the patient's current medications. . Quality ID 145: Final reports for procedures using fluoroscopy that document radiation exposure carlito francois, or exposure time and number of fluorographic images (if radiation exposure indices are not avail able) Quality ID # [id number]: Final reports with documentation of one or more dose reduction techniques (e.g., Au tomated exposure control, adjustment of the mA and/or kV according to patient size, use of iterative reconstruction technique) TECHNICAL DOCUMENTATION: JOB ID: [id number] 2010 [employer]- All Rights Reserved Reading location - IP/workstation name: [email or web address]
[2019-08-05] MEDS: ENALAPRILAT DIHYDRATE INJ/PF 2.5 MG/2 ML SDV IV SCH (16:39)
[2019-08-05] MEDS ORDERED: HYDRALAZINE HCL INJ/PF 20 MG/1 ML SDV IV PRN (18:49)
--- NOTE | 2019-08-05 20:29 | PDOC PROGRESS REPORT ---
Subjective Progress Note for:: 08/05/19 Subjective:: Patient seen today by the bedside, she had CT-guided lung biopsy done today without complication, she was anxious she did not sleep well last night this also reflected in the elevated blood pressure. Reason For Visit: HEMATEMESIS,WEIGHT LOSS,SICKLE CELL DISEASE Physical Exam Vital Signs: Temp Pulse Resp BP Pulse Ox 98.0 F 88 18 147/75 H 99 08/05/19 19:12 08/05/19 19:12 08/05/19 19:12 08/05/19 19:12 08/05/19 19:12 Intake & Output 08/04/19 08/05/19 08/06/19 06:59 06:59 06:59 Intake Total 2170 1465 290 Output Total 3000 3050 Balance -830 -1585 290 Weight 74.6 kg 73.5 kg General appearance: PRESENT: no acute distress Eye exam: PRESENT: PERRLA Respiratory exam: PRESENT: clear to auscultation tien Cardiovascular exam: PRESENT: +S1, +S2 GI/Abdominal exam: PRESENT: soft Neurological exam: PRESENT: alert, CN II-XII grossly intact Results Laboratory Results: 08/05/19 07:10 08/05/19 07:10 08/05/19 08/05/19 07:10 07:10 WBC 20.3 H RBC 4.59 Hgb 11.2 L Hct 32.2 L MCV 70 L MCH 24.4 L MCHC 34.8 RDW 19.4 H Plt Count 579 H Seg Neutrophils % Not Reportable Sodium 140.1 Potassium 4.4 Chloride 104 Carbon Dioxide 26 Anion Gap 10 BUN 20 Creatinine 0.63 Est GFR ( Amer) > 60 Glucose 90 Calcium 10.1 Total Bilirubin 0.8 AST 25 Alkaline Phosphatase 79 Total Protein 7.6 Albumin 4.1 08/03/19 13:26 Throat Throat Culture - Final GREATLY REDUCED NORMAL RUMA 07/30/19 20:29 Blood Blood Culture - Final NO GROWTH IN 5 DAYS 07/30/19 18:00 Blood Blood Culture - Final NO GROWTH IN 5 DAYS Impressions: Abdomen/Pelvis CT 07/31/19 00:00 IMPRESSION: Small left-sided pleural effusion in an area of previous pleural thickening is a nonspecific finding. Infectious and neoplastic processes are in the differential. No evidence of acute intra-abdominal infectious/inflammatory process. Somewhat abnormal appearance of the right kidney is incompletely characterized in the absence of intravenous contrast material. A 2.0 x 2.0 x 3.0 cm retroperitoneal structure may represent a prominent lymph node ; no additional retroperitoneal findings are demonstrated on this limited exam. 5.0 x 5.9 x 5.9 cm cystic lesion in the left inguinal region is likewise poorly characterized; in the setting of previous instrumentation, this may represent a pseudoaneurysm. Sonographic evaluation may be helpful in further characterization. Shoulder X-Ray 08/01/19 00:00 IMPRESSION: Osteopenia. Glenohumeral degenerative changes. Chest CT 08/04/19 08:00 IMPRESSION: 1. Left lower lobe pulmonary mass suspicious for malignancy. This would be amenable to percutaneous biopsy. 2. Small left pleural effusion. 3. Small left hilar lymph node suspicious for local metastasis. PET CT may provide additional information. 4. Moderate cardiomegaly with small pericardial effusion/pericardial thickening. Chest X-Ray 08/05/19 00:00 IMPRESSION: Status post CT-guided lung biopsy. No pneumothorax. Guidance Needle Placement CT 08/05/19 00:00 IMPRESSION: SUCCESSFUL CT GUIDED PERCUTANEOUS LUNG BIOPSY OF THE LEFT LOWER LOBE. Lung Biopsy CT 08/05/19 00:00 IMPRESSION: CT GUIDED BIOPSY OF THE LEFT LOWER LOBE MASS PERFORMED WITHOUT IMMEDIATE COMPLICATION. PATHOLOGY PENDING. Assessment & Plan - Diagnosis (1) Hematemesis Qualifiers: Nausea presence: with nausea Qualified Code(s): K92.0 - Hematemesis Is this a current diagnosis for this admission?: Yes (2) Weight loss Is this a current diagnosis for this admission?: Yes (3) Sickle cell disease Qualifiers: Sickle-cell associated disorders: without crisis Qualified Code(s): D57.1 - Sickle-cell disease without crisis Is this a current diagnosis for this admission?: Yes (4) Hemoptysis Is this a current diagnosis for this admission?: Yes (5) Malignant neoplasm of lower lobe of left lung Is this a current diagnosis for this admission?: Yes Plan: This probably stage III at least, lung cancer, CT-guided needle biopsy done today (6) Hypertensive urgency Is this a current diagnosis for this admission?: Yes Plan: Start Vasotec 5 mg IV every 6 hours as needed with hydralazine 20mg IV - Time Time Spent with patient: 35 or more minutes Level of Care: [facility]
[2019-08-05] MEDS: ATORVASTATIN CALCIUM 80 MG TABLET PO SCH (21:11)
[2019-08-06] MEDS: ENALAPRILAT DIHYDRATE INJ/PF 2.5 MG/2 ML SDV IV SCH ×5 (02:30→20:36)
[2019-08-06 09:59] LABS: HEMATOCRIT 34.7 % (36.0-47.0); MEAN CORPUSCULAR HEMOGLOBIN 24.2 pg (27.0-33.4); MEAN CORPUSCULAR HGB CONC 34.5 g/dL (32.0-36.0); MEAN CORPUSCULAR VOLUME 70 fl (80-97); PLATELET COUNT 526 10^3/uL (150-450); RED BLOOD COUNT 4.94 10^6/uL (3.72-5.28)
[2019-08-06 10:14] LABS: ABSOLUTE LYMPHOCYTES# (MANUAL) 1.3 10^3/uL (0.5-4.7); ANISOCYTOSIS 2+; BASOPHILS % (MANUAL) 0 % (0-2); EOSINOPHILS % (MANUAL) 0 % (0-6); LYMPHOCYTES % (MANUAL) 9 % (13-45); MONOCYTES % (MANUAL) 7 % (3-13); SEGMENTED NEUTROPHILS % (MAN) 84 % (42-78); TOTAL CELLS COUNTED 100
[2019-08-06 10:15] LABS: PLATELET LARGE PRESENT; POIKILOCYTOSIS 2+; POLYCHROMASIA SLIGHT; TARGET CELLS 2+
[2019-08-06 10:16] LABS: PLATELET COMMENT INCREASED
[2019-08-06] MEDS: CHOLECALCIFEROL (D3) 1,000 UNIT (25 MCG) TABLET PO SCH (10:21)
[2019-08-06] MEDS: LEVETIRACETAM 500 MG TABLET PO SCH ×2 (10:21→21:56)
[2019-08-06] MEDS: METOPROLOL TARTRATE 50 MG TABLET PO SCH ×2 (10:21→21:56)
[2019-08-06] MEDS: ASCORBIC ACID 500 MG TABLET PO SCH (10:22)
[2019-08-06] MEDS: CEFEPIME 1 GM/D5W RTU 1 GM/50 ML RTUPB IV SCH ×2 (10:23→21:56)
[2019-08-06] MEDS: HYDROCODONE/ACETAMINOPHEN 10-325 MG TABLET PO PRN ×2 (10:31→17:45)
[2019-08-06 11:38] LABS: ALKALINE PHOSPHATASE 71 U/L (38-126); ANION GAP 8 (5-19); ASPARTATE AMINO TRANSFERASE 30 U/L (14-36); BILIRUBIN,TOTAL 0.7 mg/dL (0.2-1.3); BLOOD UREA NITROGEN 17 mg/dL (7-20); CALCIUM 9.8 mg/dL (8.4-10.2); CARBON DIOXIDE 28 mmol/L (22-30); CHLORIDE 103 mmol/L (98-107); GLUCOSE 113 mg/dL (75-110); POTASSIUM 4.7 mmol/L (3.6-5.0); TOTAL PROTEIN 7.4 g/dL (6.3-8.2)
[2019-08-06] MEDS ORDERED: DIPHENHYDRAMINE HCL 25 MG CAPSULE ONE (17:43)
[2019-08-06] MEDS: DIPHENHYDRAMINE HCL 25 MG CAPSULE PO PRN (18:21)
--- NOTE | 2019-08-06 21:25 | PDOC PROGRESS REPORT ---
Subjective Progress Note for:: 08/06/19 Subjective:: She was seen by the bedside, she had CT-guided lung biopsy yesterday of the mass in the left lower lobe, result is pending Reason For Visit: HEMATEMESIS,WEIGHT LOSS,SICKLE CELL DISEASE Physical Exam Vital Signs: Temp Pulse Resp BP Pulse Ox 98.2 F 57 L 20 134/72 H 98 08/06/19 19:49 08/06/19 19:49 08/06/19 19:49 08/06/19 20:36 08/06/19 19:49 Intake & Output 08/05/19 08/06/19 08/07/19 06:59 06:59 06:59 Intake Total 1465 340 854 Output Total 3058 644 6331 Balance -9053 -246 -0388 Weight 73.5 kg 74.3 kg General appearance: PRESENT: no acute distress Eye exam: PRESENT: PERRLA Respiratory exam: PRESENT: clear to auscultation tien Cardiovascular exam: PRESENT: +S1, +S2 GI/Abdominal exam: PRESENT: soft Neurological exam: PRESENT: alert, CN II-XII grossly intact Results Laboratory Results: 08/06/19 09:06 08/06/19 10:55 08/06/19 08/06/19 08/06/19 09:06 09:06 10:55 WBC 14.0 H RBC 4.94 Hgb 12.0 Hct 34.7 L MCV 70 L MCH 24.2 L MCHC 34.5 RDW 20.0 H Plt Count 526 H Seg Neutrophils % Not Reportable Sodium Cancelled 139.4 Potassium Cancelled 4.7 Chloride Cancelled 103 Carbon Dioxide Cancelled 28 Anion Gap Cancelled 8 BUN Cancelled 17 Creatinine Cancelled 0.58 Est GFR ( Amer) Cancelled > 60 Est GFR (Non-Af Amer) Cancelled Glucose Cancelled 113 H Calcium Cancelled 9.8 Total Bilirubin Cancelled 0.7 AST Cancelled 30 Alkaline Phosphatase Cancelled 71 Total Protein Cancelled 7.4 Albumin Cancelled 4.0 Impressions: Abdomen/Pelvis CT 07/31/19 00:00 IMPRESSION: Small left-sided pleural effusion in an area of previous pleural thickening is a nonspecific finding. Infectious and neoplastic processes are in the differential. No evidence of acute intra-abdominal infectious/inflammatory process. Somewhat abnormal appearance of the right kidney is incompletely characterized in the absence of intravenous contrast material. A 2.0 x 2.0 x 3.0 cm retroperitoneal structure may represent a prominent lymph node ; no additional retroperitoneal findings are demonstrated on this limited exam. 5.0 x 5.9 x 5.9 cm cystic lesion in the left inguinal region is likewise poorly characterized; in the setting of previous instrumentation, this may represent a pseudoaneurysm. Sonographic evaluation may be helpful in further characterization. Shoulder X-Ray 08/01/19 00:00 IMPRESSION: Osteopenia. Glenohumeral degenerative changes. Chest CT 08/04/19 08:00 IMPRESSION: 1. Left lower lobe pulmonary mass suspicious for malignancy. This would be amenable to percutaneous biopsy. 2. Small left pleural effusion. 3. Small left hilar lymph node suspicious for local metastasis. PET CT may provide additional information. 4. Moderate cardiomegaly with small pericardial effusion/pericardial thickening. Chest X-Ray 08/05/19 00:00 IMPRESSION: Status post CT-guided lung biopsy. No pneumothorax. Guidance Needle Placement CT 08/05/19 00:00 IMPRESSION: SUCCESSFUL CT GUIDED PERCUTANEOUS LUNG BIOPSY OF THE LEFT LOWER LOBE. Lung Biopsy CT 08/05/19 00:00 IMPRESSION: CT GUIDED BIOPSY OF THE LEFT LOWER LOBE MASS PERFORMED WITHOUT IMMEDIATE COMPLICATION. PATHOLOGY PENDING. Assessment & Plan - Diagnosis (1) Hematemesis Qualifiers: Nausea presence: with nausea Qualified Code(s): K92.0 - Hematemesis Is this a current diagnosis for this admission?: Yes (2) Weight loss Is this a current diagnosis for this admission?: Yes (3) Sickle cell disease Qualifiers: Sickle-cell associated disorders: without crisis Qualified Code(s): D57.1 - Sickle-cell disease without crisis Is this a current diagnosis for this admission?: Yes (4) Hemoptysis Is this a current diagnosis for this admission?: Yes (5) Malignant neoplasm of lower lobe of left lung Is this a current diagnosis for this admission?: Yes Plan: Status post CT-guided needle biopsy of the lung mass result pending (6) Hypertensive urgency Is this a current diagnosis for this admission?: Yes Plan: Improved - Time Time Spent with patient: 25-34 minutes Level of Care: [facility]
[2019-08-06] MEDS: ATORVASTATIN CALCIUM 80 MG TABLET PO SCH (21:56)
[2019-08-07] MEDS: HYDROCODONE/ACETAMINOPHEN 10-325 MG TABLET PO PRN ×4 (00:30→22:15)
[2019-08-07] MEDS: ENALAPRILAT DIHYDRATE INJ/PF 2.5 MG/2 ML SDV IV SCH ×4 (04:16→21:01)
[2019-08-07] MEDS: LEVETIRACETAM 500 MG TABLET PO SCH ×2 (09:12→21:03)
[2019-08-07] MEDS: METOPROLOL TARTRATE 50 MG TABLET PO SCH ×2 (09:12→21:02)
[2019-08-07] MEDS: ASCORBIC ACID 500 MG TABLET PO SCH (09:12)
[2019-08-07] MEDS: CHOLECALCIFEROL (D3) 1,000 UNIT (25 MCG) TABLET PO SCH (09:13)
[2019-08-07] MEDS: CEFEPIME 1 GM/D5W RTU 1 GM/50 ML RTUPB IV SCH (09:13)
[2019-08-07] MEDS ORDERED: ONDANSETRON 4 MG TAB.RAPDIS ONE (09:19)
[2019-08-07] MEDS: DIPHENHYDRAMINE HCL 25 MG CAPSULE PO PRN ×2 (09:19→16:31)
[2019-08-07] MEDS ORDERED: ONDANSETRON 4 MG TAB.RAPDIS PO PRN (09:23)
[2019-08-07] MEDS: ATORVASTATIN CALCIUM 80 MG TABLET PO SCH (21:03)
[2019-08-07] MEDS ORDERED: HYDROXYZINE HCL 2 MG/ML SYRUP 60 ML ONE (22:07)
[2019-08-07] MEDS: HYDROXYZINE HCL 2 MG/ML SYRUP 60 ML PO PRN (22:13)
[2019-08-08] MEDS: ENALAPRILAT DIHYDRATE INJ/PF 2.5 MG/2 ML SDV IV SCH ×4 (03:27→23:00)
[2019-08-08] MEDS: LEVETIRACETAM 500 MG TABLET PO SCH ×2 (09:21→23:00)
[2019-08-08] MEDS: METOPROLOL TARTRATE 50 MG TABLET PO SCH ×2 (09:21→23:00)
[2019-08-08] MEDS: ASCORBIC ACID 500 MG TABLET PO SCH (09:21)
[2019-08-08] MEDS: CHOLECALCIFEROL (D3) 1,000 UNIT (25 MCG) TABLET PO SCH (09:21)
[2019-08-08] MEDS: MAGNESIUM HYDROXIDE SUSP 30 ML UDCUP PO PRN (09:25)
[2019-08-08] MEDS: HYDROCODONE/ACETAMINOPHEN 10-325 MG TABLET PO PRN ×3 (09:25→22:30)
[2019-08-08] MEDS: HYDROXYZINE HCL 2 MG/ML SYRUP 60 ML PO PRN ×2 (15:47→22:30)
--- NOTE | 2019-08-08 16:34 | PDOC PROGRESS REPORT ---
Subjective Progress Note for:: 08/07/19 Subjective:: Patient continue to report intermittent hemoptysis. s/p Left lower lobe mass CT guided biopsy. Pathology report is still pending. No chest pain or difficulty with breathing. No fever or chills. No nausea vomiting or abdominal pain. No seizure activity. Patient reported persistent itching despite use of Benadryl. Reason For Visit: HEMATEMESIS,WEIGHT LOSS,SICKLE CELL DISEASE Physical Exam Vital Signs: Temp Pulse Resp BP Pulse Ox 98.4 F 57 L 16 128/72 H 100 08/07/19 17:00 08/07/19 17:00 08/07/19 17:00 08/07/19 17:00 08/07/19 17:00 Intake & Output 08/06/19 08/07/19 08/08/19 06:59 06:59 06:59 Intake Total 340 1504 782 Output Total 850 2800 1000 Balance -510 -1296 -218 Weight 74.3 kg 74.4 kg General appearance: PRESENT: no acute distress, well-developed, well-nourished Head exam: PRESENT: atraumatic, normocephalic Eye exam: PRESENT: conjunctiva pink. ABSENT: scleral icterus Respiratory exam: PRESENT: clear to auscultation tien Cardiovascular exam: PRESENT: RRR, +S1, +S2. ABSENT: diastolic murmur, rubs, systolic murmur Vascular exam: ABSENT: pallor GI/Abdominal exam: PRESENT: normal bowel sounds, soft. ABSENT: distended, guarding, mass, organolmegaly, rebound, tenderness Extremities exam: ABSENT: pedal edema Neurological exam: PRESENT: alert, awake, oriented to person, oriented to place, oriented to time, oriented to situation, CN II-XII grossly intact. ABSENT: motor sensory deficit Psychiatric exam: PRESENT: appropriate affect, normal mood. ABSENT: homicidal ideation, suicidal ideation Skin exam: PRESENT: dry, intact, warm. ABSENT: cyanosis, rash Results Laboratory Results: 08/06/19 09:06 08/06/19 10:55 Impressions: Abdomen/Pelvis CT 07/31/19 00:00 IMPRESSION: Small left-sided pleural effusion in an area of previous pleural thickening is a nonspecific finding. Infectious and neoplastic processes are in the differential. No evidence of acute intra-abdominal infectious/inflammatory process. Somewhat abnormal appearance of the right kidney is incompletely characterized in the absence of intravenous contrast material. A 2.0 x 2.0 x 3.0 cm retroperitoneal structure may represent a prominent lymph node ; no additional retroperitoneal findings are demonstrated on this limited exam. 5.0 x 5.9 x 5.9 cm cystic lesion in the left inguinal region is likewise poorly characterized; in the setting of previous instrumentation, this may represent a pseudoaneurysm. Sonographic evaluation may be helpful in further characterization. Shoulder X-Ray 08/01/19 00:00 IMPRESSION: Osteopenia. Glenohumeral degenerative changes. Chest CT 08/04/19 08:00 IMPRESSION: 1. Left lower lobe pulmonary mass suspicious for malignancy. This would be amenable to percutaneous biopsy. 2. Small left pleural effusion. 3. Small left hilar lymph node suspicious for local metastasis. PET CT may provide additional information. 4. Moderate cardiomegaly with small pericardial effusion/pericardial thickening. Chest X-Ray 08/05/19 00:00 IMPRESSION: Status post CT-guided lung biopsy. No pneumothorax. Guidance Needle Placement CT 08/05/19 00:00 IMPRESSION: SUCCESSFUL CT GUIDED PERCUTANEOUS LUNG BIOPSY OF THE LEFT LOWER LOBE. Lung Biopsy CT 08/05/19 00:00 IMPRESSION: CT GUIDED BIOPSY OF THE LEFT LOWER LOBE MASS PERFORMED WITHOUT IMMEDIATE COMPLICATION. PATHOLOGY PENDING. Assessment & Plan - Diagnosis (1) Mass of lower lobe of left lung Is this a current diagnosis for this admission?: Yes Plan: Follow up on pathology report. (2) Hemoptysis Is this a current diagnosis for this admission?: Yes Plan: Probably due to malignant process from her left lung lower lobe mass. Follow up on pathology report. (3) Weight loss Is this a current diagnosis for this admission?: Yes Plan: Related to her underlying malignant process. Encouraged increase food intake. Expressed distaste for hospital food. (4) Hypertension Qualifiers: Hypertension type: essential hypertension Qualified Code(s): I10 - Essential (primary) hypertension Is this a current diagnosis for this admission?: Yes Plan: Continue current medication management. (5) Sickle cell disease Qualifiers: Sickle-cell associated disorders: without crisis Qualified Code(s): D57.1 - Sickle-cell disease without crisis Is this a current diagnosis for this admission?: Yes Plan: Maintain on current medication management and supportive care. (6) Seizure disorder Is this a current diagnosis for this admission?: Yes Plan: Maintain on current anti seizure medications. - Time Time Spent with patient: 15-24 minutes Level of Care: IMCU Medications reviewed and adjusted accordingly: Yes Anticipated discharge: Home with Homehealth Within: Other - Inpatient Certification Based on my medical assessment, after consideration of the patient's comorbidities, presenting symptoms, or acuity I expect that the services needed warrant INPATIENT care.: Yes I certify that my determination is in accordance with my understanding of Medicare's requirements for reasonable and necessary INPATIENT services [42 CFR 412.3e].: Yes Medical Necessity: Significant Comorbidiites Make Outpatient Treatment Too Risky, Need Close Monitoring Due to Risk of Patient Decompensation, Need For Continuous Telemetry Monitoring, Risk of Complication if Not Cared For in Hospital, Risk of Diagnosis Which Will Require Inpatient Eval/Care/Monitoring Post Hospital Care: D/C [employer] Documentation - Plan Summary Plan Summary: D/C Benadryl due reported ineffectiveness. Start on Hydroxyzine 10 mg po q 6 hours prn for itching. Maintain on all other current medication management.
--- NOTE | 2019-08-08 16:37 | PDOC PROGRESS REPORT ---
Subjective Progress Note for:: 08/08/19 Subjective:: Patient continue to experience intermittent hemoptysis today. No dizziness. No chest pain or difficulty with breathing. No fever or chills. No nausea vomiting or abdominal pain. OOB in chair during my bedside visit. Reason For Visit: HEMATEMESIS,WEIGHT LOSS,SICKLE CELL DISEASE Physical Exam Vital Signs: Temp Pulse Resp BP Pulse Ox 98.3 F 71 14 136/81 H 96 08/08/19 08:02 08/08/19 14:00 08/08/19 08:02 08/08/19 08:02 08/08/19 08:02 Intake & Output 08/07/19 08/08/19 08/09/19 06:59 06:59 06:59 Intake Total 1504 1352 Output Total 2800 1700 Balance -1296 -348 Weight 74.4 kg 75 kg Physical Exam: General appearance: PRESENT: no acute distress, well-developed, well-nourished Head exam: PRESENT: atraumatic, normocephalic Eye exam: PRESENT: conjunctiva pink. ABSENT: pallor, scleral icterus Respiratory exam: PRESENT: clear to auscultation tien Cardiovascular exam: PRESENT: RRR, +S1, +S2. ABSENT: diastolic murmur, rubs, systolic murmur GI/Abdominal exam: PRESENT: normal bowel sounds, soft. ABSENT: distended, guarding, mass, organomegaly, rebound, tenderness Extremities exam: ABSENT: pedal edema Neurological exam: PRESENT: alert, awake, oriented to person, oriented to place, oriented to time, oriented to situation, CN II-XII grossly intact. ABSENT: motor sensory deficit Psychiatric exam: PRESENT: appropriate affect, normal mood. ABSENT: homicidal ideation, suicidal ideation Skin exam: PRESENT: dry, intact, warm. ABSENT: cyanosis, rash Results Laboratory Results: 08/06/19 09:06 08/06/19 10:55 Impressions: Abdomen/Pelvis CT 07/31/19 00:00 IMPRESSION: Small left-sided pleural effusion in an area of previous pleural thickening is a nonspecific finding. Infectious and neoplastic processes are in the differential. No evidence of acute intra-abdominal infectious/inflammatory process. Somewhat abnormal appearance of the right kidney is incompletely characterized in the absence of intravenous contrast material. A 2.0 x 2.0 x 3.0 cm retroperitoneal structure may represent a prominent lymph node ; no additional retroperitoneal findings are demonstrated on this limited exam. 5.0 x 5.9 x 5.9 cm cystic lesion in the left inguinal region is likewise poorly characterized; in the setting of previous instrumentation, this may represent a pseudoaneurysm. Sonographic evaluation may be helpful in further characterization. Shoulder X-Ray 08/01/19 00:00 IMPRESSION: Osteopenia. Glenohumeral degenerative changes. Chest CT 08/04/19 08:00 IMPRESSION: 1. Left lower lobe pulmonary mass suspicious for malignancy. This would be amenable to percutaneous biopsy. 2. Small left pleural effusion. 3. Small left hilar lymph node suspicious for local metastasis. PET CT may provide additional information. 4. Moderate cardiomegaly with small pericardial effusion/pericardial thickening. Chest X-Ray 08/05/19 00:00 IMPRESSION: Status post CT-guided lung biopsy. No pneumothorax. Guidance Needle Placement CT 08/05/19 00:00 IMPRESSION: SUCCESSFUL CT GUIDED PERCUTANEOUS LUNG BIOPSY OF THE LEFT LOWER LOBE. Lung Biopsy CT 08/05/19 00:00 IMPRESSION: CT GUIDED BIOPSY OF THE LEFT LOWER LOBE MASS PERFORMED WITHOUT IMMEDIATE COMPLICATION. PATHOLOGY PENDING. Assessment & Plan - Diagnosis (1) Mass of lower lobe of left lung Is this a current diagnosis for this admission?: Yes (2) Hemoptysis Is this a current diagnosis for this admission?: Yes (3) Weight loss Is this a current diagnosis for this admission?: Yes (4) Hypertension Qualifiers: Hypertension type: essential hypertension Qualified Code(s): I10 - Essential (primary) hypertension Is this a current diagnosis for this admission?: Yes (5) Sickle cell disease Qualifiers: Sickle-cell associated disorders: without crisis Qualified Code(s): D57.1 - Sickle-cell disease without crisis Is this a current diagnosis for this admission?: Yes (6) Seizure disorder Is this a current diagnosis for this admission?: Yes - Time Time Spent with patient: 25-34 minutes Level of Care: IMCU Medications reviewed and adjusted accordingly: Yes Anticipated discharge: Home with Homehealth Within: Other - Inpatient Certification Based on my medical assessment, after consideration of the patient's comorbidities, presenting symptoms, or acuity I expect that the services needed warrant INPATIENT care.: Yes I certify that my determination is in accordance with my understanding of Medicare's requirements for reasonable and necessary INPATIENT services [42 CFR 412.3e].: Yes Medical Necessity: Significant Comorbidiites Make Outpatient Treatment Too Risky, Need Close Monitoring Due to Risk of Patient Decompensation, Risk of Complication if Not Cared For in Hospital, Risk of Diagnosis Which Will Require Inpatient Eval/Care/Monitoring Post Hospital Care: D/C [employer] Documentation - Plan Summary Plan Summary: Continue current medication management. Follow up on pathology report.
[2019-08-08] MEDS: ATORVASTATIN CALCIUM 80 MG TABLET PO SCH (23:00)
[2019-08-09] MEDS: ENALAPRILAT DIHYDRATE INJ/PF 2.5 MG/2 ML SDV IV SCH ×4 (03:35→20:36)
[2019-08-09] MEDS: ASCORBIC ACID 500 MG TABLET PO SCH (09:34)
[2019-08-09] MEDS: LEVETIRACETAM 500 MG TABLET PO SCH ×2 (09:34→21:40)
[2019-08-09] MEDS: CHOLECALCIFEROL (D3) 1,000 UNIT (25 MCG) TABLET PO SCH (09:34)
[2019-08-09] MEDS: METOPROLOL TARTRATE 50 MG TABLET PO SCH ×2 (09:35→21:40)
[2019-08-09] MEDS: HYDROCODONE/ACETAMINOPHEN 10-325 MG TABLET PO PRN ×3 (09:37→21:40)
[2019-08-09] MEDS: HYDROXYZINE HCL 2 MG/ML SYRUP 60 ML PO PRN ×2 (10:49→21:39)
--- NOTE | 2019-08-09 19:44 | PDOC PROGRESS REPORT ---
Subjective Progress Note for:: 08/09/19 Subjective:: The pathology of the biopsy is nondiagnostic, patient may need a new biopsy, bronchoscopy or open thoracotomy Reason For Visit: HEMATEMESIS,WEIGHT LOSS,SICKLE CELL DISEASE Physical Exam Vital Signs: Temp Pulse Resp BP Pulse Ox 97.3 F 62 20 129/68 H 99 08/09/19 15:41 08/09/19 15:41 08/09/19 15:41 08/09/19 15:41 08/09/19 15:41 Intake & Output 08/08/19 08/09/19 08/10/19 06:59 06:59 06:59 Intake Total 1352 1848 360 Output Total 1700 1600 Balance -348 248 360 Weight 75 kg 73.8 kg General appearance: PRESENT: no acute distress Eye exam: PRESENT: PERRLA Respiratory exam: PRESENT: clear to auscultation tien Cardiovascular exam: PRESENT: +S1, +S2 GI/Abdominal exam: PRESENT: soft Neurological exam: PRESENT: alert Results Laboratory Results: 08/06/19 09:06 08/06/19 10:55 Impressions: Abdomen/Pelvis CT 07/31/19 00:00 IMPRESSION: Small left-sided pleural effusion in an area of previous pleural thickening is a nonspecific finding. Infectious and neoplastic processes are in the differential. No evidence of acute intra-abdominal infectious/inflammatory process. Somewhat abnormal appearance of the right kidney is incompletely characterized in the absence of intravenous contrast material. A 2.0 x 2.0 x 3.0 cm retroperitoneal structure may represent a prominent lymph node ; no additional retroperitoneal findings are demonstrated on this limited exam. 5.0 x 5.9 x 5.9 cm cystic lesion in the left inguinal region is likewise poorly characterized; in the setting of previous instrumentation, this may represent a pseudoaneurysm. Sonographic evaluation may be helpful in further characterization. Shoulder X-Ray 08/01/19 00:00 IMPRESSION: Osteopenia. Glenohumeral degenerative changes. Chest CT 08/04/19 08:00 IMPRESSION: 1. Left lower lobe pulmonary mass suspicious for malignancy. This would be amenable to percutaneous biopsy. 2. Small left pleural effusion. 3. Small left hilar lymph node suspicious for local metastasis. PET CT may provide additional information. 4. Moderate cardiomegaly with small pericardial effusion/pericardial thickening. Chest X-Ray 08/05/19 00:00 IMPRESSION: Status post CT-guided lung biopsy. No pneumothorax. Guidance Needle Placement CT 08/05/19 00:00 IMPRESSION: SUCCESSFUL CT GUIDED PERCUTANEOUS LUNG BIOPSY OF THE LEFT LOWER LOBE. Lung Biopsy CT 08/05/19 00:00 IMPRESSION: CT GUIDED BIOPSY OF THE LEFT LOWER LOBE MASS PERFORMED WITHOUT IMMEDIATE COMPLICATION. PATHOLOGY PENDING. Assessment & Plan - Diagnosis (1) Hematemesis Qualifiers: Nausea presence: with nausea Qualified Code(s): K92.0 - Hematemesis Is this a current diagnosis for this admission?: Yes (2) Weight loss Is this a current diagnosis for this admission?: Yes (3) Sickle cell disease Qualifiers: Sickle-cell associated disorders: without crisis Qualified Code(s): D57.1 - Sickle-cell disease without crisis Is this a current diagnosis for this admission?: Yes (4) Hemoptysis Is this a current diagnosis for this admission?: Yes (5) Hypertensive urgency Is this a current diagnosis for this admission?: Yes (6) Lung mass Is this a current diagnosis for this admission?: Yes Plan: The pathology is nondiagnostic, she is still symptomatic with hemoptysis - Time Time Spent with patient: 25-34 minutes Level of Care: [facility]
[2019-08-09] MEDS: ATORVASTATIN CALCIUM 80 MG TABLET PO SCH (21:40)
[2019-08-10] MEDS: ENALAPRILAT DIHYDRATE INJ/PF 2.5 MG/2 ML SDV IV SCH ×4 (05:13→22:18)
[2019-08-10] MEDS: HYDROCODONE/ACETAMINOPHEN 10-325 MG TABLET PO PRN ×3 (08:46→22:19)
[2019-08-10] MEDS: CHOLECALCIFEROL (D3) 1,000 UNIT (25 MCG) TABLET PO SCH (09:46)
[2019-08-10] MEDS: ASCORBIC ACID 500 MG TABLET PO SCH (09:46)
[2019-08-10] MEDS: METOPROLOL TARTRATE 50 MG TABLET PO SCH ×2 (09:46→22:19)
[2019-08-10] MEDS: LEVETIRACETAM 500 MG TABLET PO SCH ×2 (09:47→22:19)
[2019-08-10] MEDS: HYDROXYZINE HCL 2 MG/ML SYRUP 60 ML PO PRN ×2 (09:53→22:19)
--- NOTE | 2019-08-10 11:05 | PDOC PROGRESS REPORT ---
Subjective Progress Note for:: 08/10/19 Subjective:: Improving Reason For Visit: HEMATEMESIS,WEIGHT LOSS,SICKLE CELL DISEASE Physical Exam Vital Signs: Temp Pulse Resp BP Pulse Ox 98.0 F 58 L 14 126/66 H 98 08/10/19 07:36 08/10/19 07:36 08/10/19 07:36 08/10/19 07:36 08/10/19 07:36 Intake & Output 08/09/19 08/10/19 08/11/19 06:59 06:59 06:59 Intake Total 1848 360 Output Total 1600 Balance 248 360 Weight 73.8 kg 73.8 kg General appearance: PRESENT: no acute distress, cooperative, disheveled, well- developed, well-nourished Head exam: PRESENT: atraumatic, normocephalic Eye exam: PRESENT: conjunctiva pale, EOMI. ABSENT: nystagmus, periorbital swelling, scleral icterus Mouth exam: PRESENT: dry mucosa, neck supple, tongue midline Neck exam: ABSENT: carotid bruit, JVD, lymphadenopathy, thyromegaly Respiratory exam: PRESENT: decreased breath sounds, prolonged expiratory phas, rhonchi, unlabored, wheezes. ABSENT: rales, retraction, stridor, tachypnea Cardiovascular exam: PRESENT: RRR, +S1, +S2 Pulses: PRESENT: normal radial pulses GI/Abdominal exam: PRESENT: soft. ABSENT: guarding, mass, rebound, tenderness Extremities exam: ABSENT: calf tenderness, clubbing, joint swelling, tenderness Musculoskeletal exam: ABSENT: deformity, dislocation Neurological exam: PRESENT: alert Skin exam: PRESENT: dry, warm Results Laboratory Results: 08/06/19 09:06 08/06/19 10:55 Impressions: Abdomen/Pelvis CT 07/31/19 00:00 IMPRESSION: Small left-sided pleural effusion in an area of previous pleural thickening is a nonspecific finding. Infectious and neoplastic processes are in the differential. No evidence of acute intra-abdominal infectious/inflammatory process. Somewhat abnormal appearance of the right kidney is incompletely characterized in the absence of intravenous contrast material. A 2.0 x 2.0 x 3.0 cm retroperitoneal structure may represent a prominent lymph node ; no additional retroperitoneal findings are demonstrated on this limited exam. 5.0 x 5.9 x 5.9 cm cystic lesion in the left inguinal region is likewise poorly characterized; in the setting of previous instrumentation, this may represent a pseudoaneurysm. Sonographic evaluation may be helpful in further charact erization. Shoulder X-Ray 08/01/19 00:00 IMPRESSION: Osteopenia. Glenohumeral degenerative changes. Chest CT 08/04/19 08:00 IMPRESSION: 1. Left lower lobe pulmonary mass suspicious for malignancy. This would be amenable to percutaneous biopsy. 2. Small left pleural effusion. 3. Small left hilar lymph node suspicious for local metastasis. PET CT may provide additional information. 4. Moderate cardiomegaly with small pericardial effusion/pericardial thickening. Chest X-Ray 08/05/19 00:00 IMPRESSION: Status post CT-guided lung biopsy. No pneumothorax. Guidance Needle Placement CT 08/05/19 00:00 IMPRESSION: SUCCESSFUL CT GUIDED PERCUTANEOUS LUNG BIOPSY OF THE LEFT LOWER LOBE. Lung Biopsy CT 08/05/19 00:00 IMPRESSION: CT GUIDED BIOPSY OF THE LEFT LOWER LOBE MASS PERFORMED WITHOUT IMMEDIATE COMPLICATION. PATHOLOGY PENDING. Assessment & Plan - Diagnosis (1) Hemoptysis Is this a current diagnosis for this admission?: Yes Plan: Lung mass noted guided needle biopsy negative discussed with Dr. Noble [facility] staff will call to make appointment for patient to receive bronchoscopy on outpatient basis (2) Hypertension Qualifiers: Hypertension type: essential hypertension Qualified Code(s): I10 - Essential (primary) hypertension Is this a current diagnosis for this admission?: Yes Plan: Stable (3) Sickle cell disease Qualifiers: Sickle-cell associated disorders: without crisis Qualified Code(s): D57.1 - Sickle-cell disease without crisis Is this a current diagnosis for this admission?: Yes Plan: Chronic pain - Time Time Spent with patient: 50min
--- NOTE | 2019-08-10 21:08 | PDOC PROGRESS REPORT ---
Subjective Progress Note for:: 08/10/19 Subjective:: She has a nondiagnostic CT-guided biopsy of the lung mass, she was seen by pulmonary, Dr. Cabrera the plan is for patient to have outpatient bronchoscopy done Reason For Visit: HEMATEMESIS,WEIGHT LOSS,SICKLE CELL DISEASE Physical Exam Vital Signs: Temp Pulse Resp BP Pulse Ox 97.8 F 64 16 108/66 99 08/10/19 16:00 08/10/19 16:00 08/10/19 16:00 08/10/19 16:00 08/10/19 16:00 Intake & Output 08/09/19 08/10/19 08/11/19 06:59 06:59 06:59 Intake Total 1848 360 Output Total 1600 Balance 248 360 Weight 73.8 kg 73.8 kg General appearance: PRESENT: no acute distress Eye exam: PRESENT: PERRLA Respiratory exam: PRESENT: clear to auscultation tien Cardiovascular exam: PRESENT: +S1, +S2 GI/Abdominal exam: PRESENT: soft Neurological exam: PRESENT: alert Results Laboratory Results: 08/06/19 09:06 08/06/19 10:55 Impressions: Abdomen/Pelvis CT 07/31/19 00:00 IMPRESSION: Small left-sided pleural effusion in an area of previous pleural thickening is a nonspecific finding. Infectious and neoplastic processes are in the differential. No evidence of acute intra-abdominal infectious/inflammatory process. Somewhat abnormal appearance of the right kidney is incompletely characterized in the absence of intravenous contrast material. A 2.0 x 2.0 x 3.0 cm retroperitoneal structure may represent a prominent lymph node ; no additional retroperitoneal findings are demonstrated on this limited exam. 5.0 x 5.9 x 5.9 cm cystic lesion in the left inguinal region is likewise poorly characterized; in the setting of previous instrumentation, this may represent a pseudoaneurysm. Sonographic evaluation may be helpful in further characterization. Shoulder X-Ray 08/01/19 00:00 IMPRESSION: Osteopenia. Glenohumeral degenerative changes. Chest CT 08/04/19 08:00 IMPRESSION: 1. Left lower lobe pulmonary mass suspicious for malignancy. This would be amenable to percutaneous biopsy. 2. Small left pleural effusion. 3. Small left hilar lymph node suspicious for local metastasis. PET CT may provide additional information. 4. Moderate cardiomegaly with small pericardial effusion/pericardial thickening. Chest X-Ray 08/05/19 00:00 IMPRESSION: Status post CT-guided lung biopsy. No pneumothorax. Guidance Needle Placement CT 08/05/19 00:00 IMPRESSION: SUCCESSFUL CT GUIDED PERCUTANEOUS LUNG BIOPSY OF THE LEFT LOWER LOBE. Lung Biopsy CT 08/05/19 00:00 IMPRESSION: CT GUIDED BIOPSY OF THE LEFT LOWER LOBE MASS PERFORMED WITHOUT IMMEDIATE COMPLICATION. PATHOLOGY PENDING. Assessment & Plan - Diagnosis (1) Hemoptysis Is this a current diagnosis for this admission?: Yes (2) Lung mass Is this a current diagnosis for this admission?: Yes (3) Weight loss Is this a current diagnosis for this admission?: Yes (4) Sickle cell disease Qualifiers: Sickle-cell associated disorders: without crisis Qualified Code(s): D57.1 - Sickle-cell disease without crisis Is this a current diagnosis for this admission?: Yes (5) Hypertensive urgency Is this a current diagnosis for this admission?: Yes - Time Time Spent with patient: 15-24 minutes Level of Care: [facility]
[2019-08-10] MEDS: ATORVASTATIN CALCIUM 80 MG TABLET PO SCH (22:19)
[2019-08-10 23:11] LABS: A TYPE INFLUENZA AG NEGATIVE (NEGATIVE); B INFLUENZA AG NEGATIVE (NEGATIVE)
[2019-08-11] MEDS: ENALAPRILAT DIHYDRATE INJ/PF 2.5 MG/2 ML SDV IV SCH ×5 (03:51→20:54)
[2019-08-11] MEDS: LEVETIRACETAM 500 MG TABLET PO SCH ×2 (09:38→21:01)
[2019-08-11] MEDS: ASCORBIC ACID 500 MG TABLET PO SCH (09:38)
[2019-08-11] MEDS: HYDROCODONE/ACETAMINOPHEN 10-325 MG TABLET PO PRN ×2 (09:38→17:57)
[2019-08-11] MEDS: CHOLECALCIFEROL (D3) 1,000 UNIT (25 MCG) TABLET PO SCH (09:39)
[2019-08-11] MEDS: METOPROLOL TARTRATE 50 MG TABLET PO SCH ×2 (09:39→21:01)
--- NOTE | 2019-08-11 16:36 | PDOC PROGRESS REPORT ---
Subjective Progress Note for:: 08/11/19 Subjective:: Patient seen by the bedside, she is scheduled to have bronchoscopy outpatient in [place] on Friday, patient will be From this hospital to [place] on Friday to have the bronchoscopy done, she has no way of getting to [place] without this arrangement Reason For Visit: HEMATEMESIS,WEIGHT LOSS,SICKLE CELL DISEASE Physical Exam Vital Signs: Temp Pulse Resp BP Pulse Ox 98.4 F 58 L 15 133/74 H 96 08/11/19 08:55 08/11/19 12:51 08/11/19 12:51 08/11/19 12:51 08/11/19 12:51 Intake & Output 08/10/19 08/11/19 08/12/19 06:59 06:59 06:59 Intake Total 360 320 Balance 360 320 Weight 73.8 kg 73.3 kg General appearance: PRESENT: no acute distress Eye exam: PRESENT: PERRLA Respiratory exam: PRESENT: clear to auscultation tien Cardiovascular exam: PRESENT: +S1, +S2 GI/Abdominal exam: PRESENT: soft Neurological exam: PRESENT: alert Results Laboratory Results: 08/06/19 09:06 08/06/19 10:55 Impressions: Abdomen/Pelvis CT 07/31/19 00:00 IMPRESSION: Small left-sided pleural effusion in an area of previous pleural thickening is a nonspecific finding. Infectious and neoplastic processes are in the differential. No evidence of acute intra-abdominal infectious/inflammatory process. Somewhat abnormal appearance of the right kidney is incompletely characterized in the absence of intravenous contrast material. A 2.0 x 2.0 x 3.0 cm retroperitoneal structure may represent a prominent lymph node ; no additional retroperitoneal findings are demonstrated on this limited exam. 5.0 x 5.9 x 5.9 cm cystic lesion in the left inguinal region is likewise poorly characterized; in the setting of previous instrumentation, this may represent a pseudoaneurysm. Sonographic evaluation may be helpful in further characterization. Shoulder X-Ray 08/01/19 00:00 IMPRESSION: Osteopenia. Glenohumeral degenerative changes. Chest CT 08/04/19 08:00 IMPRESSION: 1. Left lower lobe pulmonary mass suspicious for malignancy. This would be amenable to percutaneous biopsy. 2. Small left pleural effusion. 3. Small left hilar lymph node suspicious for local metastasis. PET CT may provide additional information. 4. Moderate cardiomegaly with small pericardial effusion/pericardial thickening. Chest X-Ray 08/05/19 00:00 IMPRESSION: Status post CT-guided lung biopsy. No pneumothorax. Guidance Needle Placement CT 08/05/19 00:00 IMPRESSION: SUCCESSFUL CT GUIDED PERCUTANEOUS LUNG BIOPSY OF THE LEFT LOWER LOBE. Lung Biopsy CT 08/05/19 00:00 IMPRESSION: CT GUIDED BIOPSY OF THE LEFT LOWER LOBE MASS PERFORMED WITHOUT IMMEDIATE COMPLICATION. PATHOLOGY PENDING. Assessment & Plan - Diagnosis (1) Hemoptysis Is this a current diagnosis for this admission?: Yes (2) Lung mass Is this a current diagnosis for this admission?: Yes (3) Weight loss Is this a current diagnosis for this admission?: Yes (4) Sickle cell disease Qualifiers: Sickle-cell associated disorders: without crisis Qualified Code(s): D57.1 - Sickle-cell disease without crisis Is this a current diagnosis for this admission?: Yes (5) Hypertensive urgency Is this a current diagnosis for this admission?: Yes - Time Time Spent with patient: 15-24 minutes Level of Care: CU
[2019-08-11] MEDS: ATORVASTATIN CALCIUM 80 MG TABLET PO SCH (21:01)
[2019-08-11] MEDS: HYDROXYZINE HCL 2 MG/ML SYRUP 60 ML PO PRN (21:02)
[2019-08-12] MEDS: HYDROCODONE/ACETAMINOPHEN 10-325 MG TABLET PO PRN ×3 (00:50→16:06)
[2019-08-12] MEDS: ENALAPRILAT DIHYDRATE INJ/PF 2.5 MG/2 ML SDV IV SCH ×3 (04:21→16:11)
[2019-08-12] MEDS: ASCORBIC ACID 500 MG TABLET PO SCH (10:12)
[2019-08-12] MEDS: LEVETIRACETAM 500 MG TABLET PO SCH (10:12)
[2019-08-12] MEDS: METOPROLOL TARTRATE 50 MG TABLET PO SCH (10:12)
[2019-08-12] MEDS: CHOLECALCIFEROL (D3) 1,000 UNIT (25 MCG) TABLET PO SCH (10:13)
[2019-08-12 16:16] VITALS: BP 134/77
--- NOTE | 2019-08-12 20:04 | PDOC DISCHARGE SUMMARY ---
Impression - Admit/DC Date/PCP Admission Date/Primary Care Provider: 07/30/19 16:14 ZULY MORALEZ MD Discharge Date: 08/12/19 - Discharge Diagnosis (1) Hemoptysis Is this a current diagnosis for this admission?: Yes (2) Lung mass Is this a current diagnosis for this admission?: Yes (3) Weight loss Is this a current diagnosis for this admission?: Yes (4) Sickle cell disease Is this a current diagnosis for this admission?: Yes (5) Hypertensive urgency Is this a current diagnosis for this admission?: Yes - Additional Information Discharge Diet: Cardiac Discharge Activity: Activity As Tolerated, Balance Activity w/Rest Referrals: TITO FLORES MD [ACTIVE STAFF] - 08/12/19 1:00 pm ZULY MORALEZ MD [Primary Care Provider] - 08/17/19 1:45 pm Home Medications: Atorvastatin Calcium [Lipitor 80 mg Tablet] 80 mg PO QHS 09/28/18 Clopidogrel Bisulfate [Plavix 75 mg Tablet] 75 mg PO DAILY 09/28/18 Enalapril Maleate [Vasotec 5 mg Tablet] 5 mg PO Q12 09/28/18 Folic Acid [Folvite 1 mg Tablet] 1 mg PO DAILY 09/28/18 Metoprolol Tartrate [Lopressor 50 mg Tablet] 50 mg PO Q12 09/28/18 Omeprazole 20 mg PO DAILY 09/28/18 Ascorbic Acid [Vitamin C 500 mg Tablet] 500 mg PO DAILY 07/30/19 Cholecalciferol (Vitamin D3) [Vitamin D3 1000 Unit Tablet] 1,000 unit PO DAILY 07/30/19 Hydrocodone/Acetaminophen [Flintstone 10-325 Tablet] 1 each PO Q6HP PRN 07/30/19 Levetiracetam [Keppra 500 mg Tablet] 1,000 mg PO Q12 07/30/19 History of Present Illiness History of Present Illness: JAI MCKINLEY is a 64 year old female, She came to the office today for evaluation of vomiting blood for the last 2 weeks, she said whenever she eats she vomits blood, she is not passing any black stool, she has also lost weight, she has a history of sickle cell disease. I felt patient needed to be admitted for evaluation and management because of the hematemesis and the weight loss I suspect a mucosal lesion of the stomach especially neoplasm Hospital Course Hospital Course: ,Patient was admitted initially for evaluation of hematemesis with weight loss,but during the course of hospital stay she complained of hemoptysis, initially CAT scan of the chest abdomen and pelvis without contrast was obtained but it was nondiagnostic.Patient have iodine allergy, she was premedicated before CT chest with contrast was obtained, it demonstrated a mass in the left lower lobeThe CAT scan of the chest specifically showed normal caliber trachea, there is abrupt cutoff of the left lower lobe bronchial secondary to a mass in the left lower lobe that measured at least 6.3 x 6.0 cm. Probable associated postobstructive atelectasis and a small left pleural effusion. The right lung is clear there is also a left hilar adenopathy very suspicious for malignancy. She underwent CT-guided needle biopsy of the mass but this was nondiagnostic.She was seen by pulmonary, Dr. Cabrera, he made arrangement for patient to have bronchoscopy on Tuesday, August 13, 2019, the initial plan was to transfer patient from this hospital with the ambulance to [facility] but the hospital said they cannot pay for the ambulance transport and that patient has to make arrangement for her own transportation to [facility] so she was discharged today for her to make arrangement for her own transportation to [place].She also was treated presumptively for pneumonia but there was no evidence of pneumonia on the scans including contrast and noncontrast. Physical Exam Vital Signs: Temp Pulse Resp BP Pulse Ox 98.2 F 55 L 16 134/77 H 98 08/12/19 18:05 08/12/19 18:05 08/12/19 18:05 08/12/19 18:05 08/12/19 18:05 Intake & Output 08/11/19 08/12/19 08/13/19 06:59 06:59 06:59 Intake Total 320 1318 658 Output Total 1800 400 Balance 320 -482 258 Weight 73.3 kg 72.4 kg General appearance: PRESENT: no acute distress Eye exam: PRESENT: PERRLA Respiratory exam: PRESENT: clear to auscultation tien Cardiovascular exam: PRESENT: +S1, +S2 GI/Abdominal exam: PRESENT: soft Neurological exam: PRESENT: alert Results Laboratory Results: WBC 14.0 10^3/uL (4.0-10.5) H 08/06/19 09:06 RBC 4.94 10^6/uL (3.72-5.28) 08/06/19 09:06 Hgb 12.0 g/dL (12.0-15.5) 08/06/19 09:06 Hct 34.7 % (36.0-47.0) L 08/06/19 09:06 MCV 70 fl (80-97) L 08/06/19 09:06 MCH 24.2 pg (27.0-33.4) L 08/06/19 09:06 MCHC 34.5 g/dL (32.0-36.0) 08/06/19 09:06 RDW 20.0 % (11.5-14.0) H 08/06/19 09:06 Plt Count 526 10^3/uL (150-450) H 08/06/19 09:06 Lymph % (Auto) Not Reportable 08/06/19 09:06 [place] % (Auto) Not Reportable 08/06/19 09:06 Eos % (Auto) Not Reportable 08/06/19 09:06 Baso % (Auto) Not Reportable 08/06/19 09:06 Absolute Neuts (auto) Not Reportable 08/06/19 09:06 Absolute Lymphs (auto) Not Reportable 08/06/19 09:06 Absolute Monos (auto) Not Reportable 08/06/19 09:06 Absolute Eos (auto) Not Reportable 08/06/19 09:06 Absolute Basos (auto) Not Reportable 08/06/19 09:06 Total Counted 100 08/06/19 09:06 Seg Neutrophils % Not Reportable 08/06/19 09:06 Seg Neuts % (Manual) 84 % (42-78) H 08/06/19 09:06 Lymphocytes % (Manual) 9 % (13-45) L 08/06/19 09:06 Atypical Lymphs % 1 % (0) 08/02/19 04:44 Monocytes % (Manual) 7 % (3-13) 08/06/19 09:06 Eosinophils % (Manual) 0 % (0-6) 08/06/19 09:06 Basophils % (Manual) 0 % (0-2) 08/06/19 09:06 Abs Neuts (Manual) 11.8 10^3/uL (1.7-8.2) H 08/06/19 09:06 Abs Lymphs (Manual) 1.3 10^3/uL (0.5-4.7) 08/06/19 09:06 Abs Monocytes (Manual) 1.0 10^3/uL (0.1-1.4) 08/06/19 09:06 Absolute Eos (Manual) 0.0 10^3/uL (0.0-0.6) 08/06/19 09:06 Abs Basophils (Manual) 0.0 10^3/uL (0.0-0.2) 08/06/19 09:06 Toxic Granulation SLIGHT 07/30/19 17:20 Toxic Vacuolation PRESENT 08/05/19 07:10 Large Platelets PRESENT 08/06/19 09:06 Giant Platelets PRESENT 08/04/19 16:02 Platelet Comment INCREASED 08/06/19 09:06 Polychromasia SLIGHT 08/06/19 09:06 Hypochromasia 1+ 08/04/19 16:02 Poikilocytosis 2+ 08/06/19 09:06 Anisocytosis 2+ 08/06/19 09:06 Microcytosis 2+ 08/06/19 09:06 Target Cells 2+ 08/06/19 09:06 Tear Drop Cells SLIGHT 08/05/19 07:10 Ovalocytes SLIGHT 08/05/19 07:10 PT 13.0 SEC (11.4-15.4) 08/05/19 07:35 INR 0.98 08/05/19 07:35 APTT 27.4 SEC (23.5-35.8) 08/04/19 16:02 Sodium 139.4 mmol/L (137-145) 08/06/19 10:55 Potassium 4.7 mmol/L (3.6-5.0) 08/06/19 10:55 Chloride 103 mmol/L (98-107) 08/06/19 10:55 Carbon Dioxide 28 mmol/L (22-30) 08/06/19 10:55 Anion Gap 8 (5-19) 08/06/19 10:55 BUN 17 mg/dL (7-20) 08/06/19 10:55 Creatinine 0.58 mg/dL (0.52-1.25) 08/06/19 10:55 Est GFR ( Amer) > 60 (>60) 08/06/19 10:55 Est GFR (Non-Af Amer) Cancelled 08/06/19 09:06 Est GFR (MDRD) Non-Af > 60 (>60) 08/06/19 10:55 Glucose 113 mg/dL (75-110) H 08/06/19 10:55 Calcium 9.8 mg/dL (8.4-10.2) 08/06/19 10:55 Phosphorus 4.2 mg/dL (2.5-4.5) 07/30/19 20:29 Magnesium 2.0 mg/dL (1.6-2.3) 07/30/19 20:29 Total Bilirubin 0.7 mg/dL (0.2-1.3) 08/06/19 10:55 Direct Bilirubin 0.0 mg/dL (0.0-0.4) 08/06/19 10:55 Neonat Total Bilirubin Not Reportable 08/06/19 10:55 Neonat Direct Bilirubin Not Reportable 08/06/19 10:55 Neonat Indirect Bili Not Reportable 08/06/19 10:55 AST 30 U/L (14-36) 08/06/19 10:55 ALT 17 U/L (<35) 08/06/19 10:55 Alkaline Phosphatase 71 U/L (38-126) 08/06/19 10:55 Total Protein 7.4 g/dL (6.3-8.2) 08/06/19 10:55 Albumin 4.0 g/dL (3.5-5.0) 08/06/19 10:55 Lipase 232.2 U/L (23-300) 07/30/19 20:29 EGFR Cancelled 08/06/19 09:06 TSH 0.48 uIU/mL (0.47-4.68) 07/30/19 20:29 Free T4 1.25 ng/dL (0.78-2.19) 07/30/19 20:29 Influenza A (Rapid) NEGATIVE (NEGATIVE) 08/10/19 22:30 Influenza B (Rapid) NEGATIVE (NEGATIVE) 08/10/19 22:30 SARS-CoV-2 (PCR) NEGATIVE (NEGATIVE) 08/10/19 20:33 Group A Strep Rapid NEGATIVE (NEGATIVE) 08/10/19 22:30 Impressions: Chest X-Ray 07/30/19 14:48 IMPRESSION: Cardiomegaly without pulmonary edema. Possible small left pleural effusion. Left lower lobe airspace disease, pneumonia versus atelectasis. Abdomen/Pelvis CT 07/31/19 00:00 IMPRESSION: Small left-sided pleural effusion in an area of previous pleural thickening is a nonspecific finding. Infectious and neoplastic processes are in the differential. No evidence of acute intra-abdominal infectious/inflammatory process. Somewhat abnormal appearance of the right kidney is incompletely characterized in the absence of intravenous contrast material. A 2.0 x 2.0 x 3.0 cm retroperitoneal structure may represent a prominent lymph node ; no additional retroperitoneal findings are demonstrated on this limited exam. 5.0 x 5.9 x 5.9 cm cystic lesion in the left inguinal region is likewise poorly characterized; in the setting of previous instrumentation, this may represent a pseudoaneurysm. Sonographic evaluation may be helpful in further characterization. Chest CT 07/31/19 00:00 IMPRESSION: Small left-sided pleural effusion in an area of previous pleural thickening is a nonspecific finding. Infectious and neoplastic processes are in the differential. No evidence of acute intra-abdominal infectious/inflammatory process. Somewhat abnormal appearance of the right kidney is incompletely characterized in the absence of intravenous contrast material. A 2.0 x 2.0 x 3.0 cm retroperitoneal structure may represent a prominent lymph node ; no additional retroperitoneal findings are demonstrated on this limited exam. 5.0 x 5.9 x 5.9 cm cystic lesion in the left inguinal region is likewise poorly characterized; in the setting of previous instrumentation, this may represent a pseudoaneurysm. Sonographic evaluation may be helpful in further characterization. Shoulder X-Ray 08/01/19 00:00 IMPRESSION: Osteopenia. Glenohumeral degenerative changes. Chest CT 08/04/19 08:00 IMPRESSION: 1. Left lower lobe pulmonary mass suspicious for malignancy. This would be amenable to percutaneous biopsy. 2. Small left pleural effusion. 3. Small left hilar lymph node suspicious for local metastasis. PET CT may provide additional information. 4. Moderate cardiomegaly with small pericardial effusion/pericardial thickening. Chest X-Ray 08/05/19 00:00 IMPRESSION: Status post CT-guided lung biopsy without significant pneumothorax. Chest X-Ray 08/05/19 00:00 IMPRESSION: Status post CT-guided lung biopsy. No pneumothorax. Guidance Needle Placement CT 08/05/19 00:00 IMPRESSION: SUCCESSFUL CT GUIDED PERCUTANEOUS LUNG BIOPSY OF THE LEFT LOWER LOBE. Lung Biopsy CT 08/05/19 00:00 IMPRESSION: CT GUIDED BIOPSY OF THE LEFT LOWER LOBE MASS PERFORMED WITHOUT IMMEDIATE COMPLICATION. PATHOLOGY PENDING. Stroke Is this a Stroke Patient?: No Acute Heart Failure - Is this a Heart Failure Patient?: No
== END 2019-08-12 19:25 | disposition home or self-care (01) | DRG 204 ==
LOC: ER 14:28 → EH 16:14 → 3W 20:03
PROVIDERS: ADMIT Internal Medicine; ATTEND Internal Medicine
PROC: 0BBJ3ZX Excision of Left Lower Lung Lobe, Percutaneous Approach, Diagnostic (ICD-10-PCS; principal; 2019-08-05)
DX: R91.8 Other nonspecific abnormal finding of lung field (principal); R04.2 Hemoptysis; J90 Pleural effusion, not elsewhere classified; G40.802 Other epilepsy, not intractable, without status epilepticus; J98.11 Atelectasis; R59.0 Localized enlarged lymph nodes; D57.1 Sickle-cell disease without crisis; I10 Essential (primary) hypertension; I16.0 Hypertensive urgency; E11.9 Type 2 diabetes mellitus without complications; I72.4 Aneurysm of artery of lower extremity; F17.210 Nicotine dependence, cigarettes, uncomplicated; K21.9 Gastro-esophageal reflux disease without esophagitis; Z96.642 Presence of left artificial hip joint; R63.4 Abnormal weight loss; Z20.828 Contact with and (suspected) exposure to other viral communicable diseases; I25.10 Atherosclerotic heart disease of native coronary artery without angina pectoris; Z90.49 Acquired absence of other specified parts of digestive tract; Z90.710 Acquired absence of both cervix and uterus; Z86.73 Personal history of transient ischemic attack (TIA), and cerebral infarction without residual deficits; Z88.3 Allergy status to other anti-infective agents
CPT/HCPCS: 32405; 36415; 71045; 71250; 71260; 74176; 77012; 80053; 83690; 83735; 84100; 84439; 84443; 85025; 85610; 85730; 87040; 87070; 87086; 87635; 87804; 87880; 88305; 88312; 93005; 93010; 96374; 99284; C9113; C9803; J0692; J1200; J2405; J2930; J3010; J3480; J3490; S0028; S0119

== ENCOUNTER → 2019-08-24 | Outpatient (CLI) | payer MEDICARE, MEDICAID ==
--- NOTE | 2019-08-25 13:57 | RADIOLOGY REPORT (SQ) ---
EXAM DESCRIPTION: PET CT SKULL/THIGH IMAGES COMPLETED DATE/TIME: 08/24/2019 5:39 pm REASON FOR STUDY: C34.32 MALIGNANT NEOPLASM OF LOWER LOBE, LEFT BRONCHUS OR LUNG C34.32 MALIGNANT N EOPLASM OF LOWER LOBE, LEFT BRONCHUS OR LEON COMPARISON: 08/05/2019, 07/31/2019 RADIONUCLIDE AND DOSE: 9.25 mCi F18 FDG The route of agent administration: Intravenous FASTING BLOOD SUGAR: 84 mg/dl CONTRAST TYPE AND DOSE: No CT contrast given. TECHNIQUE: Blood glucose level was verified. Above dose of FDG was injected intravenously. 2-D seg mented attenuation correction images were obtained from the base of the skull to the midthighs. Nonc ontrast CT images were obtained for attenuation correction and fusion with emission images. CT image s were performed without oral or intravenous contrast and are not sensitive for parenchymal lesions. A series of overlapping emission PET images were obtained. Images reviewed and manipulated at [facility] work station by the radiologist. Images stored on PACS. LIMITATIONS: None. FINDINGS: HEAD AND NECK: No areas of abnormal metabolic activity in the soft tissues of the head and neck. CHEST: Previously biopsied poorly defined left basilar masslike consolidation demonstrates large area of avid FDG uptake (max SUV 16.8) measuring approximately 6.0 x 5.4 cm. There is mild asymmetric ac tivity within the left hilum and subcarinal region without clearly delineated adenopathy on the nonco ntrast exam. Left axilla and subcarinal region demonstrate max SUV 4.0. For reference right hilar r egion demonstrates SUVs of 2.3. Small left-sided pleural effusion again noted. Heavy three-vessel c oronary atherosclerosis. Cardiomegaly. ABDOMEN AND PELVIS: No areas of abnormal metabolic activity in the abdomen or pelvis. Previously esme cribed low-density left para-aortic lesion demonstrates no significant increased uptake (max SUV 1.3) . Stable appearance of the thick walled hypodense collection anterior to the left hip arthroplasty w ithout significant increased uptake (max SUV 1.2). Expected physiologic activity is present in the g enitourinary system and bowel. Prior cholecystectomy. Aortoiliac atherosclerosis. Scattered coloni c diverticula. PROXIMAL LOWER EXTREMITIES: No areas of abnormal metabolic activity in the soft tissues of the lower extremities. BONES: No abnormal metabolic activity in the visualized skeleton. ADDITIONAL CT FINDINGS: As above. OTHER: Background hepatic activity max SUV 3.6. IMPRESSION: 1. Large area of avid FDG uptake measuring approximately 6.0 x 5.4 cm corresponding to previously biopsied left lower lobe lesion (max SUV 16.8) compatible with malignancy. 2. Asymmetric increased uptake within the left hilum and subcarinal region (max SUV 4.0) suspicious for juan pablo disease. Delineation of discrete nodes limited on this noncontrast exam. 3. No other evidence of pathologic uptake to suggest extra thoracic disease. TECHNICAL DOCUMENTATION: JOB ID: [id number] 2010 [employer]- All Rights Reserved Reading location - IP/workstation name: [email or web address]
== END ==
LOC: RAD 11:34
PROVIDERS: ATTEND Internal Medicine Hematology & Oncology
DX: C34.32 Malignant neoplasm of lower lobe, left bronchus or lung (principal)
CPT/HCPCS: 78815; A9552

== ENCOUNTER 2019-10-01 08:59 | Day surgery (SDC) | payer MEDICARE, MEDICAID ==
--- NOTE | 2019-09-24 13:39 | RADIOLOGY REPORT (SQ) ---
EXAM DESCRIPTION: CHEST SINGLE VIEW IMAGES COMPLETED DATE/TIME: 09/24/2019 1:26 pm REASON FOR STUDY: PRE-OP COMPARISON: 08/05/2019 EXAM PARAMETERS: NUMBER OF VIEWS: One view. TECHNIQUE: Single frontal radiographic view of the chest acquired. RADIATION DOSE: NA LIMITATIONS: None. FINDINGS: LUNGS AND PLEURA: Increasing left-sided pleural effusion. No pneumothorax. Underlying ma ss is obscured by the effusion and probable atelectasis. MEDIASTINUM AND HILAR STRUCTURES: No masses. Contour normal. HEART AND VASCULAR STRUCTURES: Heart normal in size. Normal vasculature. BONES: No acute findings. HARDWARE: None in the chest. OTHER: No other significant finding. IMPRESSION: Increasing left-sided pleural effusion. No other interval change. TECHNICAL DOCUMENTATION: JOB ID: [id number] 2010 [employer]- All Rights Reserved Reading location - IP/workstation name: [email or web address]
[2019-09-24 14:54] LABS: ANION GAP 7 (5-19); BLOOD UREA NITROGEN 9 mg/dL (7-20); CALCIUM 9.2 mg/dL (8.4-10.2); CARBON DIOXIDE 31 mmol/L (22-30); CHLORIDE 102 mmol/L (98-107); GLUCOSE 86 mg/dL (75-110); POTASSIUM 4.7 mmol/L (3.6-5.0)
[2019-09-24 14:55] LABS: HEMATOCRIT 29.6 % (36.0-47.0); HEMOGLOBIN 10.1 g/dL (12.0-15.5); MEAN CORPUSCULAR HEMOGLOBIN 22.9 pg (27.0-33.4); MEAN CORPUSCULAR VOLUME 67 fl (80-97); PLATELET COUNT 897 10^3/uL (150-450); RED BLOOD COUNT 4.41 10^6/uL (3.72-5.28); RED CELL DISTRIBUTION WIDTH 21.2 % (11.5-14.0)
[2019-09-24 15:28] LABS: ABSOLUTE LYMPHOCYTES# (MANUAL) 4.3 10^3/uL (0.5-4.7); BASOPHILS % (MANUAL) 0 % (0-2); EOSINOPHILS % (MANUAL) 1 % (0-6); LYMPHOCYTES % (MANUAL) 27 % (13-45); MONOCYTES % (MANUAL) 6 % (3-13); NUCLEATED RED BLOOD CELLS 2 /100 WBC (0); SEGMENTED NEUTROPHILS % (MAN) 66 % (42-78); TOTAL CELLS COUNTED 100
[2019-09-24 15:29] LABS: PLATELET COMMENT INCREASED
[2019-09-24 15:31] LABS: ANISOCYTOSIS 3+; HYPOCHROMASIA 2+; POLYCHROMASIA SLIGHT
[2019-09-24 15:33] LABS: TEAR DROP CELLS SLIGHT
[2019-09-24 15:34] LABS: OVALOCYTES SLIGHT; SCHISTOCYTES SLIGHT
[2019-09-24 15:35] LABS: TOXIC VACUOLATION PRESENT
[2019-09-24 15:36] LABS: BURR CELLS SLIGHT
[2019-09-24 15:44] LABS: TARGET CELLS 3+
--- NOTE | 2019-09-24 16:43 | EKG REPORT ---
SEVERITY:- ABNORMAL ECG - SINUS BRADYCARDIA LEFT VENTRICULAR HYPERTROPHY BORDERLINE T ABNORMALITIES, INFERIOR LEADS : Confirmed by: Luiz Tejeda MD 24-Sep-2019 16:42:51
[2019-09-27 14:32] LABS: PATH REVIEW PATHOLOGIST REVIEWED
[~2019-10-01 08:59] MED LIST: ACETAMINOPHEN 325 MG TABLET PO PRN; BUPIVACAINE HCL 0.25 % INJ/PF (2.5 MG/1 ML) 30 ML VIAL ONE; CEFAZOLIN 2 GM/D5W RTU 2 GM/50 ML RTUPB IV PRN; IBUPROFEN 800 MG in NORMAL SALINE 250 ML IV PRN; LACTATED RINGERS 1000 ML IV PRN; LIDOCAINE 0.5% INJ-PF (5 MG/ML) 50 ML SDV SUBCUT PRN; LIDOCAINE 1% INJ-PF (10 MG/ML) 30 ML SDV ONE
[2019-10-01] MEDS ORDERED: ACETAMINOPHEN 325 MG TABLET ONE (09:26)
[2019-10-01] MEDS ORDERED: CEFAZOLIN 2 GM/D5W RTU 2 GM/50 ML RTUPB IV ONE (09:26)
[2019-10-01] MEDS ORDERED: KETAMINE HCL INJ 500 MG/10 ML VIAL ONE (09:26)
[2019-10-01] MEDS ORDERED: MIDAZOLAM 2 MG/2 ML INJ ONE (09:26)
[2019-10-01] MEDS ORDERED: FENTANYL CITRATE INJ/PF 100 MCG/2 ML AMPUL ONE (09:26)
[2019-10-01] MEDS ORDERED: PROPOFOL INJ 200 MG/20 ML VIAL IV ONE (09:27)
[2019-10-01] MEDS ORDERED: BUPIVACAINE HCL 0.25 % INJ/PF (2.5 MG/1 ML) 30 ML VIAL ONE (09:37)
[2019-10-01] MEDS ORDERED: LIDOCAINE 1% INJ-PF (10 MG/ML) 30 ML SDV ONE (09:37)
[2019-10-01] MEDS ORDERED: ONDANSETRON HCL INJ/PF 4 MG/2 ML SDV IV PRN (10:18)
[2019-10-01] MEDS ORDERED: HYDROCODONE/ACETAMINOPHEN 10-325 MG TABLET PO PRN (10:55)
--- NOTE | 2019-10-01 10:55 | Discharge Summary ---
Discharge Summary (SDC) - Discharge Final Diagnosis: Lung cancer Date of Surgery: 10/01/19 Discharge Date: 10/01/19 Condition: Stable Treatment or Instructions: Discharge home. Diet as tolerated. Activity: As tolerated. Resume home medications as previously prescribed. Okay to use Mediport. Okay to shower starting Friday. Follow-up at [facility] is unnecessary, unless patient specifically desires an appointment. Follow-up with oncologist per previously scheduled. Referrals: ZULY MORALEZ MD [Primary Care Provider] - Discharge Diet: As Tolerated Respiratory Treatments at Home: Deep Breathing/Coughing, Incentive Spirometer Discharge Activity: Balance Activity w/Rest Home Care Assistance: None Needed Report the Following to Your Physician Immediately: Shortness of Breath, Nausea, Vomiting, Increase in Pain, Fever over 101 Degrees, Redness, Swelling, Warmth
--- NOTE | 2019-10-01 11:13 | Operative Report ---
Nonrecallable Operative Report DATE OF SURGERY: 10/01/19 PREOPERATIVE DIAGNOSIS: Lung cancer POSTOPERATIVE DIAGNOSIS: Same as above OPERATION: 1. Ultrasound-guided central venous puncture. 2. Right internal jugular vein Mediport placement. SURGEON: GREG MASTERS ANESTHESIA: LMAC TISSUE REMOVED OR ALTERED: None COMPLICATIONS: None apparent ESTIMATED BLOOD LOSS: Minimal PROCEDURE: Drains/implants: Right internal jugular vein Mediport placement. Procedure in detail: After informed consent was obtained, the patient was brought to the operating room and laid in the Trendelenburg position. The area of the neck was prepped and draped in normal sterile fashion. An ultrasound was used to identify the right internal jugular vein. It was compressible with normal flow. The right IJ was then cannulated using the supplied access needle, under direct ultrasonic guidance. The wire was inserted into the vein easily. The wire was confirmed to be within the lumen of the vein using the ultrasound device. Picture documentation was obtained and placed on the chart. Next the wire was confirmed to be within the vein using fluoroscopy. A separate Mediport hub site was created on the right chest wall. The catheter was tunneled from the Mediport hub site to the needle insertion site. The dilator and breakaway sheath were then inserted over the wire. This was done under direct fluoroscopic guidance. Next, the dilator and wire were removed as one continuous piece. This left the breakaway sheath within the SVC. Next, the catheter was inserted into the breakaway sheath. The sheath was cracked and pulled away, leaving the catheter within the SVC. The catheter was pulled back to an appropriate level. It was trimmed to length, and the Mediport hub was attached. The Mediport hub was buried in the pocket. The hub was sutured to the chest wall using 3-0 Vicryl suture. Subcutaneous tissues were then closed using 3-0 Vicryl suture in simple running fashion. The overlying skin was closed in 4-0 Vicryl Rapide suture in subcuticular fashion. The Mediport was then accessed, aspirated, and flushed with heparinized saline. A dressing was placed, and the procedure was concluded. All sponge, instrument, needle counts were correct x2. Condition: Stable.
--- NOTE | 2019-10-01 12:13 | RADIOLOGY REPORT (SQ) ---
EXAM DESCRIPTION: CHEST SINGLE VIEW IMAGES COMPLETED DATE/TIME: 10/01/2019 11:29 am REASON FOR STUDY: c-line COMPARISON: 09/24/2019 EXAM PARAMETERS: NUMBER OF VIEWS: One view. TECHNIQUE: Single frontal radiographic view of the chest acquired. RADIATION DOSE: NA LIMITATIONS: None. FINDINGS: LUNGS AND PLEURA: Increasing left pleural effusion. No acute infiltrate. MEDIASTINUM AND HILAR STRUCTURES: No masses. Contour normal. HEART AND VASCULAR STRUCTURES: Cardiomegaly. No johanna pulmonary edema. BONES: No acute findings. HARDWARE: Injection port on the right. OTHER: No other significant finding. IMPRESSION: Cardiomegaly without pulmonary edema. Increasing left pleural effusion. Injection port placement. TECHNICAL DOCUMENTATION: JOB ID: [id number] 2010 [employer]- All Rights Reserved Reading location - IP/workstation name: [email or web address]
[2019-10-01 12:50] VITALS: BP 145/78
--- NOTE | 2019-10-02 14:02 | RADIOLOGY REPORT (SQ) ---
EXAM DESCRIPTION: FLUORO/CV PLACEMENT IMAGES COMPLETED DATE/TIME: 10/01/2019 11:13 am REASON FOR STUDY: PORTACATH PLCMT RIGHT SIDE ASSISTED WITH FLUORO IN OR C34.32 MALIGNANT NEOPLASM O F LOWER LOBE, LEFT BRONCHUS OR LEON COMPARISON: None. FLUOROSCOPY TIME: 0.7 minutes 2 images saved to PACS. TECHNIQUE: Intra-operative images acquired during surgical procedure to evaluate progress. NUMBER OF IMAGES: 2 LIMITATIONS: None. FINDINGS: Imaging reveals placement of a right IJ port. Please correlate with operative note. Tip appears to project to the superior vena cava, appropriate. IMPRESSION: IMAGE(S) OBTAINED DURING PROCEDURE. COMMENT: Quality ID [id number]: Final reports for procedures using fluoroscopy that document radiation exp osure indices, or exposure time and number of fluorographic images (if radiation exposure indices are not available) Please consult full operative report of the attending physician for description of the procedure. TECHNICAL DOCUMENTATION: JOB ID: [id number] 2010 [employer]- All Rights Reserved Reading location - IP/workstation name: [email or web address]
== END 2019-10-01 12:45 | disposition home or self-care (01) ==
LOC: OROUT 08:59
PROVIDERS: ATTEND Surgery
DX: C34.32 Malignant neoplasm of lower lobe, left bronchus or lung (principal); D57.1 Sickle-cell disease without crisis; I25.10 Atherosclerotic heart disease of native coronary artery without angina pectoris; E11.9 Type 2 diabetes mellitus without complications; I10 Essential (primary) hypertension; Z87.891 Personal history of nicotine dependence; Z88.8 Allergy status to other drugs, medicaments and biological substances; Z79.899 Other long term (current) drug therapy; Z03.818 Encounter for observation for suspected exposure to other biological agents ruled out
CPT/HCPCS: 36561; 93005; 36415; 85025; 80048; 71045 ×2; 77001; 93010; 00532; C1788; U0003; A9270; J2250; J3010; J3490; J7050; J2704; J0690; J1642 ×2; J1741; C9803; 532; 87635

== ENCOUNTER → 2019-10-25 | Outpatient (CLI) | payer MEDICARE, MEDICAID ==
--- NOTE | 2019-10-26 06:29 | RADIOLOGY REPORT (SQ) ---
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 Images stored on PACS. CONTRAST TYPE AND DOSE: 10 mL Prohance. RENAL FUNCTION: Not indicated. ACR Type II contrast agent associated with few, if any, unconfounded cases of NSF LIMITATIONS: None. FINDINGS: ANATOMY: No developmental anomalies. Normal vascular flow voids. Pituitary fossa normal. CSF SPACES: Normal in size and contour. No hemorrhage. CEREBRUM: Diffusion-weighted images are negative for acute ischemic change. No intracranial hemorrhage, mass effect, or midline shift. FLAIR/ T2 weighted images demonstrate stable moderate to marked white matter disease in the bifrontal and biparietal regions, bilateral posterior temporal regions from chronic small vessel ischemic aguiar ge. Quiescent demyelinating could mimic this appearance. This has progressed 2008, stable compared to 2018. POSTERIOR FOSSA: No signal alteration. No hemorrhage. No edema, masses, or mass effect. Internal sho tory canals, cerebellopontine angles, mastoids normal. No enhancing lesions. No abnormal enhancement post contrast. DIFFUSION IMAGING: Negative for acute or subacute infarction. ORBITS: No masses. Globes normal. PARANASAL SINUSES: No fluid levels. Mucosa normal. OTHER: No other significant finding. IMPRESSION: STABLE CHRONIC WHITE MATTER. OTHERWISE UNREMARKABLE MRI OF THE BRAIN WITHOUT AND WITH INTRAVENOUS GADOLINIUM CONTRAST. EVIDENCE OF ACUTE STROKE: NO. TECHNICAL DOCUMENTATION: JOB ID: [id number] 2010 [employer]- All Rights Reserved Reading location - IP/workstation name: [id number]
== END ==
LOC: RAD 08:30
PROVIDERS: ATTEND Nurse Practitioner Family
DX: C34.32 Malignant neoplasm of lower lobe, left bronchus or lung (principal); R41.0 Disorientation, unspecified
CPT/HCPCS: 70553; A9576; J1642

== ENCOUNTER → 2020-02-01 | Outpatient (CLI) | payer MEDICARE, MEDICAID ==
--- NOTE | 2020-02-02 08:10 | RADIOLOGY REPORT (SQ) ---
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 TECHNIQUE: Blood glucose level was verified. Above dose of FDG was injected intravenously. 2-D seg mented attenuation correction images were obtained from the base of the skull to the midthighs. Nonc ontrast CT images were obtained for attenuation correction and fusion with emission images. CT image s were performed without oral or intravenous contrast and are not sensitive for parenchymal lesions. A series of overlapping emission PET images were obtained. Images reviewed and manipulated at [facility] work station by the radiologist. Images stored on PACS. LIMITATIONS: None. FINDINGS: HEAD AND NECK: No areas of abnormal metabolic activity in the soft tissues of the head and neck. CHEST: Persistent abnormal uptake in knee left lower lobe mass all SUV ranges between 3.3 and 3.7 con sistent with residual disease. Persistent uptake just posterior to the left mainstem bronchus with a n SUV of 2.8. ABDOMEN AND PELVIS: No areas of abnormal metabolic activity in the abdomen or pelvis. Expected physi ologic activity is present in the genitourinary system and bowel. PROXIMAL LOWER EXTREMITIES: No areas of abnormal metabolic activity in the soft tissues of the lower extremities. BONES: No abnormal metabolic activity in the visualized skeleton. ADDITIONAL CT FINDINGS: No additional significant findings on the noncontrast CT images. OTHER: No other significant findings. IMPRESSION: Residual increased metabolic activity in the left lower lobe mass. Postobstructive pneu monia is again noted. Findings remain consistent with residual neoplasm. No distant metastasis. Up take in the left hilum is improved. TECHNICAL DOCUMENTATION: JOB ID: [id number] [employer] All Rights Reserved Reading location - IP/workstation name: [email or web address]
== END ==
LOC: RAD 08:07
PROVIDERS: ATTEND Nurse Practitioner Family
DX: C34.32 Malignant neoplasm of lower lobe, left bronchus or lung (principal)
CPT/HCPCS: 78815; A9552